=== PATIENT | female | born 1950 | race African-American/Black ===

== ENCOUNTER 2016-11-02 13:07 | Outpatient (CLI) | payer MEDICARE, OTHER ==
[2016-11-02 13:55] LABS: Anion Gap 18 mmol/L (10-20); BUN (Urea Nitrogen) 76 mg/dL (9.8-20.1); Calc. Creatinine Clearance 0 mL/min (70-130); Calcium 9.6 mg/dL (7.8-10.44); Carbon Dioxide 10 mmol/L (23-31); Chloride 118 mmol/L (98-107); Estimated GFR-MDRD 25; Glucose 93 mg/dL (80-115); Potassium 4.9 mmol/L (3.5-5.1); Sodium 141 mmol/L (136-145)
== END 2016-11-02 13:08 | disposition home or self-care (01) ==
LOC: NAV LAB 13:07
PROVIDERS: ATTEND Internal Medicine Nephrology
DX: N18.3 Chronic kidney disease, stage 3 (moderate) (principal)
CPT/HCPCS: 36415; 80048

== ENCOUNTER 2016-11-30 17:56 | Emergency (ER) | payer MEDICARE, OTHER ==
[2016-11-30] MEDS ORDERED: AMOXicillin 250 MG CAP ONE (18:18)
== END 2016-11-30 18:26 | disposition home or self-care (01) ==
LOC: NAV ERS 17:56
DX: H65.92 Unspecified nonsuppurative otitis media, left ear (principal); I25.10 Atherosclerotic heart disease of native coronary artery without angina pectoris; I10 Essential (primary) hypertension; F41.9 Anxiety disorder, unspecified; F32.9 Major depressive disorder, single episode, unspecified; F17.220 Nicotine dependence, chewing tobacco, uncomplicated; Z79.82 Long term (current) use of aspirin; Z79.899 Other long term (current) drug therapy
CPT/HCPCS: 99282

== ENCOUNTER 2016-12-11 15:06 | Emergency (ER) | payer MEDICARE, OTHER ==
[2016-12-11 17:20] LABS: #Eosinphils 0.1 thou/uL (0.0-0.7); #Lymphocytes 1.4 thou/uL (1.20-3.40); #Monocytes 0.5 thou/uL (0.11-0.59); #Neutrophils 5.9 thou/uL (1.40-6.50); %Basophils 0.5 % (0.0-1.0); %Eosinophils 1.2 % (0.0-10.0); %Lymphocytes 17.4 % (21.0-51.0); %Monocytes 6.1 % (0.0-10.0); %Neutrophils 74.8 % (42.0-75.0); Hemoglobin 10.9 g/dL (12.0-16.0); Mean Corpuscular HGB CONC 30.1 g/dL (32.0-36.0); Mean Corpuscular Hemoglobin 26.7 pg (27.0-31.0); Mean Corpuscular Volume 88.7 fl (81.0-99.0); Mean Platelet Volume 6.1 fL (7.4-10.4); Platelet Count 364 thou/uL (130-400); RBC Distribution Width 13.9 % (11.5-14.5); Red Blood Cell (RBC) Count 4.09 mill/uL (4.20-5.40); White Blood Cell (WBC) Count 7.9 thou/uL (4.8-10.8)
[2016-12-11 17:41] LABS: ALT (SGPT) 31 U/L (8-55); AST (SGOT) 21 U/L (5-34); Albumin 4.2 g/dL (3.4-4.8); Alkaline Phosphatase 143 U/L (40-150); Anion Gap 20 mmol/L (10-20); BUN (Urea Nitrogen) 45 mg/dL (9.8-20.1); Bilirubin, Total 0.2 mg/dL (0.2-1.2); Calc. Creatinine Clearance 0 mL/min (70-130); Calcium 10.6 mg/dL (7.8-10.44); Carbon Dioxide 17 mmol/L (23-31); Chloride 108 mmol/L (98-107); Estimated GFR-MDRD 25; Globulin 4.9 g/dL (2.4-3.5); Glucose 92 mg/dL (80-115); Potassium 5.3 mmol/L (3.5-5.1); Protein, Total 9.1 g/dL (6.0-8.3); Sodium 140 mmol/L (136-145); Uric Acid 8.4 mg/dL (2.6-6.0)
[2016-12-11] MEDS ORDERED: methylPREDNISolone Sod Succ/PF 125 MG/2 ML VIAL ONE (18:00)
[2016-12-11] MEDS ORDERED: Dexamethasone 4 mg/ml Vial ONE (18:00)
[2016-12-11] MEDS ORDERED: methylPREDNISolone Acetate 40 mg/ml Vial ONE (18:04)
--- NOTE | 2016-12-11 18:20 | RAD ---
FOUR VIEWS RIGHT ELBOW: History: Elbow pain, gout. FINDINGS: AP, lateral, and oblique views demonstrates no evidence of right elbow fracture, subluxations or bon y lesions. IMPRESSION: Normal four views right elbow. POS: [facility]
--- NOTE | 2016-12-11 18:23 | RAD ---
THREE VIEWS RIGHT WRIST: History: Pain. FINDINGS: AP, lateral, and oblique views obtained. No evidence of fractures, subluxations, or significant bony lesions seen. No significant degenerative changes seen of the right wrist. IMPRESSION: Normal three views right wrist. POS: [facility]
--- NOTE | 2016-12-11 18:37 | RAD ---
FOUR VIEWS LEFT ELBOW: History: Elbow, suspect gout. FINDINGS: No evidence of left elbow fractures, subluxations, or bony lesions seen. No significant lytic or real tructive changes seen. IMPRESSION: Normal four views left elbow. POS: [facility]
--- NOTE | 2016-12-11 18:39 | RAD ---
THREE VIEWS LEFT HAND: History: Swelling. No history of trauma. FINDINGS: AP, lateral and oblique views obtained. There is loss of the normal joint space at the third metacar pal phalangeal joint. There may be some associated subchondral cysts in the distal aspect of the thi rd metacarpal. There is also some degenerative changes seen involving the lunate. 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 IMPRESSION: 1. Joint space narrowing in the third metacarpal phalangeal joint. Considering the patient's history of gout, this cannot be excluded. 2. 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 Dorsal left hand soft tissue swelling also see n. POS: [facility]
--- NOTE | 2016-12-11 18:40 | RAD ---
THREE VIEWS RIGHT HAND: History: Swelling. No history of trauma. FINDINGS: AP, lateral, and oblique views right hand obtained. No evidence of acute right hand fracture, subluxations, or significant bony lesions seen. No signifi cant joint space narrowing or osseous abnormalities seen. There may be some swelling of the PIP join t involving the fourth digit. POS: [facility]
--- NOTE | 2016-12-11 18:41 | RAD ---
THREE VIEWS LEFT WRIST: History: Possible gout. FINDINGS: AP, lateral, and oblique views of the left wrist obtained. 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 No other obvious left wrist abnorm ality seen. IMPRESSION: See above. POS: [facility]
== END 2016-12-11 18:57 | disposition home or self-care (01) ==
LOC: NAV ERS 15:06
DX: M10.9 Gout, unspecified (principal); N28.89 Other specified disorders of kidney and ureter; M89.9 Disorder of bone, unspecified; M06.9 Rheumatoid arthritis, unspecified; I25.10 Atherosclerotic heart disease of native coronary artery without angina pectoris; I10 Essential (primary) hypertension; F41.9 Anxiety disorder, unspecified; F32.9 Major depressive disorder, single episode, unspecified; F17.220 Nicotine dependence, chewing tobacco, uncomplicated; Z79.82 Long term (current) use of aspirin; Z79.899 Other long term (current) drug therapy
CPT/HCPCS: 36415; 80053; 84550; 85025; 96372; J1030; J1100; J2930

== ENCOUNTER 2017-02-22 09:50 | Emergency (ER) | payer MEDICARE, OTHER ==
[2017-02-22 10:08] LABS: Bilirubin Negative (Negative); Blood, Urine Trace (Negative); Clarity Slightly Cloudy (Clear); Glucose, Urine (Dipstick) Negative (Negative); Leukocyte Large (Negative); Nitrite Positive (Negative); Protein, Urine (Dipstick) 100 mg/dL (Neg-Trace); Urobilinogen 0.2 mg/dL (0.2-1.0); pH, Urine 5.5 (5.0-9.0)
[2017-02-22 10:18] LABS: RBC/HPF 0-3 HPF (0-3)
[2017-02-22 10:19] LABS: Bacteria/HPF 2+ HPF (None Seen); Other Microscopic Description NO; Squamous Epithelial 0-3 HPF (0-3)
== END 2017-02-22 10:33 | disposition home or self-care (01) ==
LOC: NAV ERS 09:50
DX: N39.0 Urinary tract infection, site not specified (principal); M06.9 Rheumatoid arthritis, unspecified; I25.10 Atherosclerotic heart disease of native coronary artery without angina pectoris; I10 Essential (primary) hypertension; F32.9 Major depressive disorder, single episode, unspecified; F41.9 Anxiety disorder, unspecified; F17.220 Nicotine dependence, chewing tobacco, uncomplicated; Z79.82 Long term (current) use of aspirin; Z79.899 Other long term (current) drug therapy
CPT/HCPCS: 81003; 81015; 87077; 87086; 87186; 99283

== ENCOUNTER 2017-02-28 15:55 | Outpatient (CLI) | payer MEDICARE, OTHER ==
[2017-02-28 19:00] LABS: Anion Gap 19 mmol/L (10-20); BUN (Urea Nitrogen) 56 mg/dL (9.8-20.1); Calc. Creatinine Clearance 0 mL/min (70-130); Calcium 9.3 mg/dL (7.8-10.44); Carbon Dioxide 16 mmol/L (23-31); Chloride 113 mmol/L (98-107); Estimated GFR-MDRD 25; Glucose 100 mg/dL (80-115); Potassium 5.8 mmol/L (3.5-5.1); Sodium 142 mmol/L (136-145)
[2017-03-01 18:30] LABS: Creatinine, Urine 77.81 mg/dL (47-110)
== END 2017-02-28 15:56 | disposition home or self-care (01) ==
LOC: NAV LAB 15:55
PROVIDERS: ATTEND Internal Medicine Nephrology
DX: N18.1 Chronic kidney disease, stage 1 (principal); D63.1 Anemia in chronic kidney disease; I15.0 Renovascular hypertension
CPT/HCPCS: 80048; 82570; 84156; 85014; 85018

== ENCOUNTER 2017-03-08 13:33 | Outpatient (CLI) | payer MEDICARE, OTHER ==
[2017-03-08 19:05] LABS: BUN (Urea Nitrogen) 58 mg/dL (9.8-20.1); Calc. Creatinine Clearance 0 mL/min (70-130); Estimated GFR-MDRD 27; Potassium 5.8 mmol/L (3.5-5.1)
== END 2017-03-08 13:34 | disposition home or self-care (01) ==
LOC: NAVSJIPCSP 13:33
PROVIDERS: ATTEND Internal Medicine Nephrology
DX: N18.3 Chronic kidney disease, stage 3 (moderate) (principal); R53.82 Chronic fatigue, unspecified
CPT/HCPCS: 82565; 84132; 84520

== ENCOUNTER 2017-03-27 12:02 | Emergency (ER) | payer MEDICARE, OTHER ==
[2017-03-27 12:27] LABS: Bilirubin Negative (Negative); Blood, Urine Moderate (Negative); Clarity Cloudy (Clear); Glucose, Urine (Dipstick) Negative (Negative); Leukocyte Large (Negative); Nitrite Negative (Negative); Protein, Urine (Dipstick) 100 mg/dL (Neg-Trace); Urobilinogen 0.2 mg/dL (0.2-1.0); pH, Urine 5.5 (5.0-9.0)
[2017-03-27 12:31] LABS: Squamous Epithelial 0-3 HPF (0-3)
[2017-03-27 12:32] LABS: Bacteria/HPF 2+ HPF (None Seen); Other Microscopic Description NO
== END 2017-03-27 12:45 | disposition home or self-care (01) ==
LOC: NAV ERS 12:02
DX: N39.0 Urinary tract infection, site not specified (principal); M06.9 Rheumatoid arthritis, unspecified; I25.10 Atherosclerotic heart disease of native coronary artery without angina pectoris; M10.9 Gout, unspecified; I12.9 Hypertensive chronic kidney disease with stage 1 through stage 4 chronic kidney disease, or unspecified chronic kidney disease; N18.3 Chronic kidney disease, stage 3 (moderate); F41.9 Anxiety disorder, unspecified; F32.9 Major depressive disorder, single episode, unspecified; F17.220 Nicotine dependence, chewing tobacco, uncomplicated; Z79.82 Long term (current) use of aspirin; Z79.899 Other long term (current) drug therapy
CPT/HCPCS: 81003; 81015; 87077; 87086; 87186; 99283

== ENCOUNTER 2017-03-31 16:06 | Emergency (ER) | payer MEDICARE, MEDICAID ==
[2017-03-31] MEDS ORDERED: methylPREDNISolone Sod Succ/PF 125 MG/2 ML VIAL ONE (16:50)
[2017-03-31 17:46] LABS: Anion Gap 16 mmol/L (10-20); BUN (Urea Nitrogen) 69 mg/dL (9.8-20.1); Calc. Creatinine Clearance 0 mL/min (70-130); Calcium 9.6 mg/dL (7.8-10.44); Carbon Dioxide 17 mmol/L (23-31); Chloride 110 mmol/L (98-107); Estimated GFR-MDRD 21; Glucose 102 mg/dL (80-115); Potassium 5.5 mmol/L (3.5-5.1); Sodium 137 mmol/L (136-145)
[2017-03-31] MEDS ORDERED: Furosemide 40 MG/4 ML VIAL ONE (18:23)
== END 2017-03-31 18:36 | disposition home or self-care (01) ==
LOC: NAV ERS 16:06
DX: M10.9 Gout, unspecified (principal); E87.5 Hyperkalemia; I12.9 Hypertensive chronic kidney disease with stage 1 through stage 4 chronic kidney disease, or unspecified chronic kidney disease; N18.3 Chronic kidney disease, stage 3 (moderate); I25.10 Atherosclerotic heart disease of native coronary artery without angina pectoris; M06.9 Rheumatoid arthritis, unspecified; F17.220 Nicotine dependence, chewing tobacco, uncomplicated; Z79.82 Long term (current) use of aspirin; Z79.899 Other long term (current) drug therapy
CPT/HCPCS: 36415; 80048; 93005; 96372; J1940; J2930

== ENCOUNTER 2017-04-10 13:06 | Emergency (ER) | payer MEDICARE, MEDICAID ==
[2017-04-10 13:27] LABS: Bilirubin Negative (Negative); Blood, Urine Negative (Negative); Clarity Clear (Clear); Glucose, Urine (Dipstick) Negative (Negative); Leukocyte Trace (Negative); Nitrite Negative (Negative); Protein, Urine (Dipstick) 100 mg/dL (Neg-Trace); Urobilinogen 0.2 mg/dL (0.2-1.0); pH, Urine 5.5 (5.0-9.0)
[2017-04-10 13:36] LABS: Bacteria/HPF Rare-Few HPF (None Seen); Other Microscopic Description NO; RBC/HPF None Seen HPF (0-3); Squamous Epithelial 0-3 HPF (0-3)
== END 2017-04-10 13:50 | disposition home or self-care (01) ==
LOC: NAV ERS 13:06
DX: N39.0 Urinary tract infection, site not specified (principal); I12.9 Hypertensive chronic kidney disease with stage 1 through stage 4 chronic kidney disease, or unspecified chronic kidney disease; N18.3 Chronic kidney disease, stage 3 (moderate); M06.9 Rheumatoid arthritis, unspecified; I25.10 Atherosclerotic heart disease of native coronary artery without angina pectoris; M10.9 Gout, unspecified; F41.9 Anxiety disorder, unspecified; F32.9 Major depressive disorder, single episode, unspecified; F17.220 Nicotine dependence, chewing tobacco, uncomplicated; Z79.82 Long term (current) use of aspirin; Z79.899 Other long term (current) drug therapy
CPT/HCPCS: 81003; 81015; 87086; 99283

== ENCOUNTER 2017-05-18 13:59 | Emergency (ER) | payer MEDICARE, OTHER ==
[2017-05-18] MEDS ORDERED: methylPREDNISolone Sod Succ/PF 125 MG/2 ML VIAL ONE (14:28)
== END 2017-05-18 14:58 | disposition home or self-care (01) ==
LOC: NAV ERS 13:59
DX: M10.9 Gout, unspecified (principal); I25.10 Atherosclerotic heart disease of native coronary artery without angina pectoris; I12.9 Hypertensive chronic kidney disease with stage 1 through stage 4 chronic kidney disease, or unspecified chronic kidney disease; N18.3 Chronic kidney disease, stage 3 (moderate); F41.9 Anxiety disorder, unspecified; F32.9 Major depressive disorder, single episode, unspecified; F17.220 Nicotine dependence, chewing tobacco, uncomplicated; Z79.82 Long term (current) use of aspirin; Z79.899 Other long term (current) drug therapy
CPT/HCPCS: 96372; J2930

== ENCOUNTER 2017-07-07 13:34 | Outpatient (CLI) | payer MEDICARE, OTHER ==
[2017-07-07 14:06] LABS: BUN (Urea Nitrogen) 81 mg/dL (9.8-20.1); Potassium 5.6 mmol/L (3.5-5.1)
== END 2017-07-07 13:35 | disposition home or self-care (01) ==
LOC: NAV LAB 13:34
PROVIDERS: ATTEND Internal Medicine Nephrology
DX: N18.3 Chronic kidney disease, stage 3 (moderate) (principal)
CPT/HCPCS: 36415; 84132; 84520

== ENCOUNTER 2017-10-16 11:09 | Emergency (ER) | payer MEDICARE, MEDICAID ==
[2017-10-16] MEDS ORDERED: predniSONE 20 MG TAB ONE (11:27)
== END 2017-10-16 11:43 | disposition home or self-care (01) ==
LOC: NAV ERS 11:09
DX: M10.9 Gout, unspecified (principal); I25.10 Atherosclerotic heart disease of native coronary artery without angina pectoris; I12.9 Hypertensive chronic kidney disease with stage 1 through stage 4 chronic kidney disease, or unspecified chronic kidney disease; N18.3 Chronic kidney disease, stage 3 (moderate); F41.9 Anxiety disorder, unspecified; F32.9 Major depressive disorder, single episode, unspecified; F17.220 Nicotine dependence, chewing tobacco, uncomplicated; Z79.82 Long term (current) use of aspirin; Z79.899 Other long term (current) drug therapy
CPT/HCPCS: 99283; J7506

== ENCOUNTER 2017-11-04 21:59 | Emergency (ER) | payer MEDICARE, MEDICAID ==
[2017-11-04] MEDS ORDERED: Acetaminophen 500 MG TAB ONE (22:15)
--- NOTE | 2017-11-04 22:38 | RAD ---
SINGLE VIEW CHEST: 11/04/17 COMPARISON: 05/06/16 HISTORY: Flu-like symptoms and cough. FINDINGS: Single view of the chest shows a normal sized cardiomediastinal silhouette. There is no evidence of c onsolidation, mass, or pleural effusion. The bones are unremarkable. IMPRESSION: No evidence of acute cardiopulmonary disease. POS: [facility]
[2017-11-04] MEDS ORDERED: guaiFENesin 100 MG/5 ML UDCUP ONE (23:00)
[2017-11-04] MEDS ORDERED: Benzonatate 100 MG CAP ONE (23:00)
[2017-11-04] MEDS ORDERED: Azithromycin 250 MG TAB ONE (23:00)
== END 2017-11-04 23:08 | disposition home or self-care (01) ==
LOC: NAV ERS 21:59
DX: J06.9 Acute upper respiratory infection, unspecified (principal); I25.10 Atherosclerotic heart disease of native coronary artery without angina pectoris; M10.9 Gout, unspecified; I12.9 Hypertensive chronic kidney disease with stage 1 through stage 4 chronic kidney disease, or unspecified chronic kidney disease; N18.3 Chronic kidney disease, stage 3 (moderate); F41.9 Anxiety disorder, unspecified; F32.9 Major depressive disorder, single episode, unspecified; F17.220 Nicotine dependence, chewing tobacco, uncomplicated; Z79.82 Long term (current) use of aspirin; Z79.52 Long term (current) use of systemic steroids; Z79.899 Other long term (current) drug therapy
CPT/HCPCS: 71045; 87081; 87430; 87804

== ENCOUNTER 2018-01-03 14:13 | Emergency (ER) | payer MEDICARE, OTHER | END 2018-01-03 15:05 | disposition home or self-care (01) | LOC: NAV ERS 14:13 | DX: S90.02XA Contusion of left ankle, initial encounter (principal); M10.072 Idiopathic gout, left ankle and foot; I10 Essential (primary) hypertension; G89.4 Chronic pain syndrome; I25.10 Atherosclerotic heart disease of native coronary artery without angina pectoris; F41.9 Anxiety disorder, unspecified; F32.9 Major depressive disorder, single episode, unspecified; F17.220 Nicotine dependence, chewing tobacco, uncomplicated; Z79.82 Long term (current) use of aspirin; Z79.899 Other long term (current) drug therapy; W01.0XXA Fall on same level from slipping, tripping and stumbling without subsequent striking against object, initial encounter | CPT/HCPCS: 99283 ==

== ENCOUNTER 2018-01-07 16:13 | Emergency (ER) | payer MEDICARE, OTHER ==
[2018-01-07] MEDS ORDERED: Ketorolac Tromethamine 30 MG/ML VIAL ONE (16:35)
[2018-01-07] MEDS ORDERED: methylPREDNISolone Sod Succ/PF 125 MG/2 ML VIAL ONE (16:35)
== END 2018-01-07 16:56 | disposition home or self-care (01) ==
LOC: NAV ERS 16:13
DX: M10.9 Gout, unspecified (principal); I25.10 Atherosclerotic heart disease of native coronary artery without angina pectoris; I12.9 Hypertensive chronic kidney disease with stage 1 through stage 4 chronic kidney disease, or unspecified chronic kidney disease; N18.3 Chronic kidney disease, stage 3 (moderate); F41.9 Anxiety disorder, unspecified; F32.9 Major depressive disorder, single episode, unspecified; F17.220 Nicotine dependence, chewing tobacco, uncomplicated; Z79.899 Other long term (current) drug therapy; Z79.82 Long term (current) use of aspirin
CPT/HCPCS: 96372; J1885; J2930

== ENCOUNTER 2018-05-23 10:09 | Emergency (ER) | payer MEDICARE, MEDICAID ==
[2018-05-23] MEDS ORDERED: Ketorolac Tromethamine 60 MG/2 ML VIAL ONE (10:34)
[2018-05-23] MEDS ORDERED: methylPREDNISolone Acetate 40 mg/ml Vial ONE (10:34)
== END 2018-05-23 10:44 | disposition home or self-care (01) ==
LOC: NAV ERS 10:09
DX: M10.9 Gout, unspecified (principal); I25.10 Atherosclerotic heart disease of native coronary artery without angina pectoris; I12.9 Hypertensive chronic kidney disease with stage 1 through stage 4 chronic kidney disease, or unspecified chronic kidney disease; N18.3 Chronic kidney disease, stage 3 (moderate); F41.9 Anxiety disorder, unspecified; F32.9 Major depressive disorder, single episode, unspecified; F17.220 Nicotine dependence, chewing tobacco, uncomplicated; Z79.899 Other long term (current) drug therapy; Z79.82 Long term (current) use of aspirin
CPT/HCPCS: 96372; J1030; J1885

== ENCOUNTER 2018-07-30 15:46 | Emergency (ER) | payer MEDICARE, MEDICAID ==
[2018-07-30] MEDS ORDERED: Proparacaine 0.5% Opth 15 ML BOT ONE (17:09)
== END 2018-07-30 17:35 | disposition home or self-care (01) ==
LOC: NAV ERS 15:46
DX: H26.9 Unspecified cataract (principal); I25.10 Atherosclerotic heart disease of native coronary artery without angina pectoris; M10.9 Gout, unspecified; I12.9 Hypertensive chronic kidney disease with stage 1 through stage 4 chronic kidney disease, or unspecified chronic kidney disease; N18.3 Chronic kidney disease, stage 3 (moderate); F17.220 Nicotine dependence, chewing tobacco, uncomplicated; Z79.82 Long term (current) use of aspirin; Z79.899 Other long term (current) drug therapy
CPT/HCPCS: 99283

== ENCOUNTER 2018-08-06 08:25 | Emergency (ER) | payer MEDICARE, MEDICAID ==
[2018-08-06] MEDS ORDERED: HYDROcodone/Acetaminophen 5/325 mg Tablet ONE (08:42)
== END 2018-08-06 17:10 | disposition home or self-care (01) ==
LOC: NAV ERS 08:25
DX: M10.9 Gout, unspecified (principal); I10 Essential (primary) hypertension; I25.10 Atherosclerotic heart disease of native coronary artery without angina pectoris; I12.9 Hypertensive chronic kidney disease with stage 1 through stage 4 chronic kidney disease, or unspecified chronic kidney disease; N18.3 Chronic kidney disease, stage 3 (moderate); F41.9 Anxiety disorder, unspecified; F32.9 Major depressive disorder, single episode, unspecified; F17.220 Nicotine dependence, chewing tobacco, uncomplicated; Z79.82 Long term (current) use of aspirin; Z79.899 Other long term (current) drug therapy
CPT/HCPCS: 99283

== ENCOUNTER 2018-10-31 14:42 | Emergency (ER) | payer MEDICARE, OTHER ==
[2018-10-31] MEDS ORDERED: Sodium Chloride 0.9% 500 ML ONE (15:28)
[2018-10-31 15:44] LABS: #Eosinphils 0.3 thou/uL (0.0-0.7); #Lymphocytes 1.6 thou/uL (1.20-3.40); #Monocytes 0.4 thou/uL (0.11-0.59); #Neutrophils 2.3 thou/uL (1.40-6.50); %Basophils 0.7 % (0.0-1.0); %Lymphocytes 33.9 % (21.0-51.0); %Monocytes 9.1 % (0.0-10.0); %Neutrophils 49.3 % (42.0-75.0); Hemoglobin 9.9 g/dL (12.0-16.0); Mean Corpuscular HGB CONC 30.2 g/dL (32.0-36.0); Mean Corpuscular Hemoglobin 26.4 pg (27.0-31.0); Mean Corpuscular Volume 87.4 fL (78.0-98.0); Platelet Count 243 thou/uL (130-400); RBC Distribution Width 16.5 % (11.5-14.5); Red Blood Cell (RBC) Count 3.76 mill/uL (4.20-5.40); White Blood Cell (WBC) Count 4.7 thou/uL (4.8-10.8)
[2018-10-31 16:03] LABS: ALT (SGPT) 8 U/L (8-55); AST (SGOT) 14 U/L (5-34); Albumin 4.1 g/dL (3.4-4.8); Alkaline Phosphatase 85 U/L (40-150); Anion Gap 18 mmol/L (10-20); BUN (Urea Nitrogen) 114 mg/dL (9.8-20.1); Bilirubin, Total 0.3 mg/dL (0.2-1.2); Calc. Creatinine Clearance 0 mL/min (70-130); Calcium 9.5 mg/dL (7.8-10.44); Carbon Dioxide 12 mmol/L (23-31); Chloride 111 mmol/L (98-107); Estimated GFR-MDRD 11; Globulin 2.9 g/dL (2.4-3.5); Glucose 84 mg/dL (80-115); Sodium 134 mmol/L (136-145)
[2018-10-31 16:12] LABS: Potassium 6.7 mmol/L (3.5-5.1)
[2018-10-31] MEDS ORDERED: Insulin Regular 300 UNITS/3 ML VIAL ONE (16:27)
[2018-10-31] MEDS ORDERED: Albuterol Sulfate 2.5 mg/0.5 ml Neb ONE (16:27)
[2018-10-31] MEDS ORDERED: Calcium Chloride 1 GM/10 ML Abboject SYRINGE ONE (16:27)
[2018-10-31] MEDS ORDERED: Dextrose 50% Abboject 50 ML SYRINGE ONE (16:28)
== END 2018-10-31 17:55 | disposition short-term general hospital (02) ==
LOC: NAV ERS 14:42
DX: E87.5 Hyperkalemia (principal); I12.9 Hypertensive chronic kidney disease with stage 1 through stage 4 chronic kidney disease, or unspecified chronic kidney disease; N18.3 Chronic kidney disease, stage 3 (moderate); I25.10 Atherosclerotic heart disease of native coronary artery without angina pectoris; M10.9 Gout, unspecified; F17.220 Nicotine dependence, chewing tobacco, uncomplicated; Z79.899 Other long term (current) drug therapy; Z79.82 Long term (current) use of aspirin
CPT/HCPCS: 36415; 80053; 83735; 85025; 93005; 94644; 96361; 96374; 96375; J1815; J7050; J7611

== ENCOUNTER 2018-11-28 12:35 | Emergency (ER) | payer MEDICARE, MEDICAID ==
[2018-11-28 13:10] LABS: #Eosinphils 0.1 thou/uL (0.0-0.7); #Lymphocytes 1.1 thou/uL (1.20-3.40); #Monocytes 0.6 thou/uL (0.11-0.59); #Neutrophils 7.2 thou/uL (1.40-6.50); %Basophils 0.5 % (0.0-1.0); %Lymphocytes 12.1 % (21.0-51.0); %Monocytes 6.8 % (0.0-10.0); %Neutrophils 79.7 % (42.0-75.0); Hemoglobin 9.6 g/dL (12.0-16.0); Mean Corpuscular HGB CONC 30.5 g/dL (32.0-36.0); Mean Corpuscular Volume 88.5 fL (78.0-98.0); Mean Platelet Volume 7.3 fL (7.4-10.4); Platelet Count 297 thou/uL (130-400); RBC Distribution Width 16.7 % (11.5-14.5); Red Blood Cell (RBC) Count 3.55 mill/uL (4.20-5.40)
[2018-11-28 13:34] LABS: Anion Gap 20 mmol/L (10-20); BUN (Urea Nitrogen) 70 mg/dL (9.8-20.1); Calc. Creatinine Clearance 0 mL/min (70-130); Calcium 10.1 mg/dL (7.8-10.44); Carbon Dioxide 12 mmol/L (23-31); Chloride 107 mmol/L (98-107); Estimated GFR-MDRD 12; Glucose 99 mg/dL (80-115); Sodium 134 mmol/L (136-145)
[2018-11-28] MEDS ORDERED: Morphine 4 MG/ML VIAL ONE (14:00)
[2018-11-28] MEDS ORDERED: Ondansetron PF 4 MG/2 ML Vial ONE (14:00)
[2018-11-28] MEDS ORDERED: Sodium Chloride 0.9% 1,000 ML ONE (14:00)
[2018-11-28] MEDS ORDERED: Acetaminophen 500 MG TAB ONE (16:07)
[2018-11-28 16:37] LABS: Bilirubin Negative (Negative); Blood, Urine Trace (Negative); Clarity Clear (Clear); Glucose, Urine (Dipstick) Negative (Negative); Leukocyte Trace (Negative); Nitrite Negative (Negative); Protein, Urine (Dipstick) 100 mg/dL (Neg-Trace); Urobilinogen 0.2 mg/dL (0.2-1.0); pH, Urine 5.5 (5.0-9.0)
[2018-11-28 16:48] LABS: Specific Gravity, Urine Less/Equal 1.005 (1.005-1.030)
[2018-11-28 16:53] LABS: Bacteria/HPF None Seen HPF (None Seen); RBC/HPF 0-3 HPF (0-3); Squamous Epithelial 0-3 HPF (0-3); WBC/HPF None Seen HPF (0-3)
== END 2018-11-28 16:34 | disposition short-term general hospital (02) ==
LOC: NAV ERS 12:35
DX: E86.0 Dehydration (principal); I12.9 Hypertensive chronic kidney disease with stage 1 through stage 4 chronic kidney disease, or unspecified chronic kidney disease; N18.4 Chronic kidney disease, stage 4 (severe); E87.2 Acidosis; I25.10 Atherosclerotic heart disease of native coronary artery without angina pectoris; M10.9 Gout, unspecified; F41.9 Anxiety disorder, unspecified; F32.9 Major depressive disorder, single episode, unspecified; F17.220 Nicotine dependence, chewing tobacco, uncomplicated; Z79.899 Other long term (current) drug therapy; Z79.82 Long term (current) use of aspirin
CPT/HCPCS: 36415; 80048; 81003; 81015; 83605; 83735; 84484; 85025; 93005; 96361; 96374; 96375; J2270; J2405; J7050

== ENCOUNTER 2018-12-05 15:58 | Inpatient (IN) | payer MEDICARE, OTHER ==
[2018-12-05 16:25] VITALS: BMI 29.9
[2018-12-05] MEDS: hydrALAZINE 25 MG TAB PO SCH (20:30)
[2018-12-05] MEDS: cloNIDine 0.1 MG TAB PO SCH (20:30)
[2018-12-05] MEDS: Lidocaine Patch Removal 1 EACH TOP SCH (20:30)
[2018-12-05] MEDS: Acetaminophen 500 MG TAB PO PRN (20:31)
[2018-12-06 05:25] LABS: #Lymphocytes 1.5 thou/uL (1.20-3.40); #Monocytes 0.8 thou/uL (0.11-0.59); #Neutrophils 9.3 thou/uL (1.40-6.50); %Basophils 0.3 % (0.0-1.0); %Eosinophils 0.1 % (0.0-10.0); %Lymphocytes 12.6 % (21.0-51.0); %Monocytes 6.8 % (0.0-10.0); %Neutrophils 80.2 % (42.0-75.0); Hemoglobin 7.4 g/dL (12.0-16.0); Mean Corpuscular HGB CONC 31.6 g/dL (32.0-36.0); Mean Corpuscular Hemoglobin 26.9 pg (27.0-31.0); Mean Corpuscular Volume 85.1 fL (78.0-98.0); Mean Platelet Volume 6.6 fL (7.4-10.4); Platelet Count 411 thou/uL (130-400); RBC Distribution Width 14.8 % (11.5-14.5); Red Blood Cell (RBC) Count 2.77 mill/uL (4.20-5.40); White Blood Cell (WBC) Count 11.5 thou/uL (4.8-10.8)
[2018-12-06 05:41] LABS: Anion Gap 22 mmol/L (10-20); Calc. Creatinine Clearance 14 mL/min (70-130); Calcium 7.5 mg/dL (7.8-10.44); Carbon Dioxide 18 mmol/L (23-31); Chloride 93 mmol/L (98-107); Estimated GFR-MDRD 10; Glucose 89 mg/dL (80-115); Potassium 4.9 mmol/L (3.5-5.1); Sodium 128 mmol/L (136-145)
[2018-12-06 06:11] LABS: BUN (Urea Nitrogen) 137 mg/dL (9.8-20.1)
[2018-12-06] MEDS: predniSONE 5 MG TAB PO SCH ×2 (08:18→16:50)
[2018-12-06] MEDS: Lidocaine 5% Patch TD SCH (08:21)
[2018-12-06] MEDS: Aspirin 81 mg Enteric Coated Tablet PO SCH (08:21)
[2018-12-06] MEDS: hydrALAZINE 25 MG TAB PO SCH ×3 (08:22→21:22)
[2018-12-06] MEDS: Amlodipine 10 MG TAB PO SCH (08:22)
[2018-12-06] MEDS: cloNIDine 0.1 MG TAB PO SCH ×2 (08:22→21:21)
[2018-12-06] MEDS: Acetaminophen 500 MG TAB PO PRN (08:56)
--- NOTE | 2018-12-06 20:00 | HP ---
CHIEF COMPLAINT: [id number] kidney disease and deconditioning, currently refusing hemodialysis and here for therapy. BRIEF HISTORY: This is a pleasant 68-year-old female, whom I have seen on and off in the past and has history of renal insufficiency since 2012, with history of noncompliance, presented to the hospital with body aches. She was noted to have [id number] kidney disease as well as hyperkalemia. She was evaluated by Orthopedics for right elbow effusion and was felt to have gout. She was also advised hemodialysis, and she was scheduled for vascular access, but then the patient decided that she did not want it. She is here for therapy, and she states that she wants to get up and get walking before she gets dialysis, and I advised her that her renal functions are continuing to worsen, and she is not really going to improve with therapy unless we take care of her primary problem, which is renal failure. I also discussed with her about code status, and she states she does not want any aggressive resuscitation done including chest compressions, shock, medications, or intubation. Nursing is confirming it, and if confirmed, then we will change her code status to DNR. She denies any chest pain or shortness of breath. She is up in her chair. Denies any fever or chills. PAST MEDICAL HISTORY: 1. Coronary artery disease. 2. Hypertension. 3. Gout. 4. History of noncompliance. 5. Chronic kidney disease, stage 3 to 4 in the past, now which has progressed to pretty much end-stage renal disease. PAST SURGICAL HISTORY: 1. Bilateral cataract extraction. 2. Hysterectomy. 3. Tubal ligation. FAMILY HISTORY: Noncontributory to current admission. PSYCHOSOCIAL HISTORY: Denies any tobacco, alcohol, or recreational drug use. ALLERGIES: 1. CODEINE. 2. LISINOPRIL. 3. TRAMADOL. CURRENT MEDICATIONS: She has been transferred here on: 1. Tylenol 500 mg p.o. q.6 p.r.n. 2. Amlodipine 10 mg daily. 3. Ecotrin 81 mg daily. 4. Clonidine 0.1 mg p.o. b.i.d. 5. Hydralazine 50 mg p.o. t.i.d. 6. Lidoderm patch 1 daily. 7. Metoprolol 25 mg daily. 8. Prednisone 10 mg b.i.d. REVIEW OF SYSTEMS: CARDIOVASCULAR SYSTEM: Denies any chest pain, shortness of breath, palpitations, PND, orthopnea, or pedal edema. RESPIRATORY SYSTEM: Denies any chronic cough, expectoration, or pleuritic-type chest pain. GASTROINTESTINAL SYSTEM: Denies any nausea, vomiting, diarrhea, constipation, hematemesis, melena, or hematochezia. GENITOURINARY SYSTEM: Denies any frequency, urgency, dysuria, or hematuria. CENTRAL NERVOUS SYSTEM: Shows no focal numbness, weakness, or fainting spells. PHYSICAL EXAMINATION: GENERAL: Pleasant 68-year-old female, who is resting comfortably in her chair and denies any complaints. She responds appropriately to questions. No family at bedside. VITAL SIGNS: She is afebrile, heart rate 62, respirations 20, oxygen saturation 99% on room air, blood pressure 118/59. HEENT: Normocephalic and atraumatic. Pupils are equally reactive to light and accommodation. NECK: No JVD, thyromegaly, cervical lymphadenopathy, throat exudates, or carotid bruits. CARDIOVASCULAR SYSTEM: S1 and S2 plus. Rate and rhythm regular. RESPIRATORY SYSTEM: Normal vesicular breath sounds heard in all lung castañeda. ABDOMEN: Soft and nontender. Bowel sounds heard in all quadrants. EXTREMITIES: Without cyanosis or clubbing. 1+ edema. CENTRAL NERVOUS SYSTEM: Awake and responsive. Cranial nerves 2 through 12 intact. Generalized weakness. LABORATORY VALUES: From this morning show a white count of 11.5, H and H are 7.4 and 23.5. Sodium 128, potassium 4.9, BUN and creatinine are 137 and 5.23. IMPRESSION: 1. Renal failure, likely end-stage. Recommended hemodialysis by Nephrology. 2. Hypertension. 3. Gout. 4. Hyponatremia. 5. Mild leukocytosis, likely secondary to steroids. 6. Generalized arthralgia. 7. Deconditioning. PLAN: 1. Continue discharge medications. 2. Heart-healthy renal diet. 3. Monitor blood pressure and adjust medications as needed. 4. Consult PT/OT evaluation and treat. 5. Discussed with the patient about the importance of getting hemodialysis promptly if she wants it done. Otherwise, really think about comfort care. 6. Change her to DNR as that is her wish to me, but I have asked nursing to confirm. 7. No family at bedside. 8. The patient is up and moving around enough that DVT is less of a concern at this point. 9. Decubitus precautions. 10. Routine laboratory values. 11. Poor long-term prognosis if she does not get hemodialysis. Job ID: [id number]
[2018-12-06] MEDS: Lidocaine Patch Removal 1 EACH TOP SCH (21:25)
[2018-12-07] MEDS: predniSONE 5 MG TAB PO SCH ×2 (08:38→17:32)
[2018-12-07] MEDS: hydrALAZINE 25 MG TAB PO SCH ×3 (08:39→20:54)
[2018-12-07] MEDS: Aspirin 81 mg Enteric Coated Tablet PO SCH (08:39)
[2018-12-07] MEDS: cloNIDine 0.1 MG TAB PO SCH ×2 (08:41→20:54)
[2018-12-07] MEDS: Amlodipine 10 MG TAB PO SCH (08:41)
[2018-12-07] MEDS: Lidocaine 5% Patch TD SCH (08:44)
[2018-12-07] MEDS: Lidocaine Patch Removal 1 EACH TOP SCH (20:55)
[2018-12-08] MEDS: predniSONE 5 MG TAB PO SCH ×2 (08:47→17:32)
[2018-12-08] MEDS: Aspirin 81 mg Enteric Coated Tablet PO SCH (08:47)
[2018-12-08] MEDS: cloNIDine 0.1 MG TAB PO SCH ×2 (08:47→21:17)
[2018-12-08] MEDS: Amlodipine 10 MG TAB PO SCH (08:47)
[2018-12-08] MEDS: Lidocaine 5% Patch TD SCH (08:47)
[2018-12-08] MEDS: hydrALAZINE 25 MG TAB PO SCH ×3 (08:47→21:16)
[2018-12-08] MEDS: Acetaminophen 500 MG TAB PO PRN (14:53)
--- NOTE | 2018-12-08 14:57 | PRG ---
DATE OF SERVICE: 12/08/2018 SUBJECTIVE: Ms. Skaggs is doing well. She has agreed to hemodialysis access placement. Dr. Jalloh has been contacted, and she is seeing him on the . She has been placed on fluid restriction. She states that she feels better. She denies any questions or concerns. I see no family at bedside. OBJECTIVE: VITAL SIGNS: She is afebrile. Heart rate 63, respirations 16, oxygen saturation 99% on room air, and blood pressure is 131/62. CARDIOVASCULAR: S1 and S2 plus. RESPIRATORY: Normal vesicular breath sounds. ABDOMEN: Soft, nontender. Bowel sounds in all quadrants. EXTREMITIES: Without cyanosis or clubbing. Peripheral pulses are palpable. Trace edema. CENTRAL NERVOUS SYSTEM: Awake and responsive. Cranial nerves 2 through 12 intact. Generalized weakness. IMPRESSION: 1. Coronary artery disease without angina. 2. Hypertension, well controlled. 3. Gout, stable. 4. Chronic kidney disease, now has progressed to end-stage. 5. Deconditioning. PLAN: 1. Continue current medications. 2. Heart healthy renal diet. 3. DVT and stress ulcer prophylaxis with PlexiPulses. 4. Decubitus precautions. 5. Recheck BMP and CBC in the morning. 6. Outpatient followup with Dr. Jalloh on the and hopefully get dialysis access placed. Continue therapy. Dictated with the patient in detail. All questions answered. Job ID: [id number]
[2018-12-08] MEDS: Lidocaine Patch Removal 1 EACH TOP SCH (21:18)
[2018-12-09 05:46] LABS: #Lymphocytes 0.9 thou/uL (1.20-3.40); #Monocytes 0.7 thou/uL (0.11-0.59); %Basophils 0.2 % (0.0-1.0); %Lymphocytes 7.4 % (21.0-51.0); %Monocytes 5.9 % (0.0-10.0); %Neutrophils 86.4 % (42.0-75.0); Hemoglobin 6.7 g/dL (12.0-16.0); Mean Corpuscular HGB CONC 30.2 g/dL (32.0-36.0); Mean Corpuscular Hemoglobin 26.8 pg (27.0-31.0); Mean Corpuscular Volume 88.4 fL (78.0-98.0); Mean Platelet Volume 6.2 fL (7.4-10.4); Platelet Count 386 thou/uL (130-400); RBC Distribution Width 15.9 % (11.5-14.5); Red Blood Cell (RBC) Count 2.51 mill/uL (4.20-5.40); White Blood Cell (WBC) Count 11.5 thou/uL (4.8-10.8)
[2018-12-09 05:59] LABS: Anion Gap 22 mmol/L (10-20); Calc. Creatinine Clearance 15 mL/min (70-130); Calcium 8.2 mg/dL (7.8-10.44); Carbon Dioxide 17 mmol/L (23-31); Chloride 103 mmol/L (98-107); Estimated GFR-MDRD 11; Glucose 117 mg/dL (80-115); Potassium 5.9 mmol/L (3.5-5.1); Sodium 136 mmol/L (136-145)
[2018-12-09 06:28] LABS: BUN (Urea Nitrogen) 165 mg/dL (9.8-20.1)
[2018-12-09] MEDS: hydrALAZINE 25 MG TAB PO SCH ×3 (08:21→21:02)
[2018-12-09] MEDS: Lidocaine 5% Patch TD SCH (08:21)
[2018-12-09] MEDS: cloNIDine 0.1 MG TAB PO SCH ×2 (08:21→21:02)
[2018-12-09] MEDS: predniSONE 5 MG TAB PO SCH (08:21)
[2018-12-09] MEDS: Amlodipine 10 MG TAB PO SCH (08:22)
[2018-12-09] MEDS: Aspirin 81 mg Enteric Coated Tablet PO SCH (08:22)
[2018-12-09] MEDS: Lidocaine Patch Removal 1 EACH TOP SCH (21:04)
[2018-12-10] MEDS: predniSONE 5 MG TAB PO SCH (08:05)
[2018-12-10] MEDS: Amlodipine 10 MG TAB PO SCH ×2 (08:06→18:00)
[2018-12-10] MEDS: Lidocaine 5% Patch TD SCH ×2 (08:06→08:52)
[2018-12-10] MEDS: Aspirin 81 mg Enteric Coated Tablet PO SCH (08:07)
[2018-12-10] MEDS: cloNIDine 0.1 MG TAB PO SCH ×3 (08:07→19:48)
[2018-12-10] MEDS: hydrALAZINE 25 MG TAB PO SCH ×3 (08:08→20:17)
[2018-12-10] MEDS: Acetaminophen 500 MG TAB PO PRN ×2 (08:11→17:48)
[2018-12-10] MEDS ORDERED: Sodium Chloride 0.9% 10 ML ONE ×3 (13:31→18:16)
--- NOTE | 2018-12-10 13:35 | PRG ---
DATE OF SERVICE: 12/10/2018 SUBJECTIVE: Ms. Skaggs is doing well. Denies any complaints. Up in her chair. She states she feels cold, otherwise, no concerns. She is scheduled to see General Surgery tomorrow for possible dialysis access placement. OBJECTIVE: VITAL SIGNS: She is afebrile. Heart rate 64, respirations 20, oxygen saturation 98% on room air, blood pressure 106/54. CARDIOVASCULAR SYSTEM: S1-S2 plus. RESPIRATORY: Normal vesicular breath sounds. ABDOMEN: Soft, nontender. Bowel sounds heard in all quadrants. EXTREMITIES: Without cyanosis, clubbing. 1+ edema. CENTRAL NERVOUS SYSTEM: Awake and responsive. Cranial nerves 2 through 12 intact. Motor system examination shows generalized weakness. LABORATORY VALUES: White count is 11.5, H and H are 6.7 and 22.2. Sodium 136, potassium is 5.9, BUN and creatinine are 165 and 4.88. IMPRESSION: 1. Hyperkalemia. 2. End-stage renal disease. 3. Anemia, profound. 4. Coronary artery disease. 5. Gout. 6. Deconditioning. PLAN: 1. Type and cross and transfuse 1 unit. 2. Kayexalate 30 g p.o. x1 now. 3. Dialysis access possibly tomorrow. 4. Continue current medications. 5. DVT and stress ulcer prophylaxis. 6. Decubitus precaution. 7. Routine laboratory values. 8. May need Epogen. Job ID: [id number]
[2018-12-10] MEDS ORDERED: Nitroglycerin 0.4 MG TAB (25 Tab Bottle) ONE (17:51)
[2018-12-10] MEDS ORDERED: Nitroglycerin 0.4 MG TAB (25 Tab Bottle) SL PRN (18:08)
[2018-12-10] MEDS: Lidocaine Patch Removal 1 EACH TOP SCH (20:21)
[2018-12-11 06:23] LABS: #Basophils 0.1 thou/uL (0.0-0.2); #Eosinphils 0.1 thou/uL (0.0-0.7); #Lymphocytes 2.2 thou/uL (1.20-3.40); #Monocytes 1.4 thou/uL (0.11-0.59); #Neutrophils 9.2 thou/uL (1.40-6.50); %Basophils 0.6 % (0.0-1.0); %Eosinophils 0.6 % (0.0-10.0); %Lymphocytes 16.8 % (21.0-51.0); %Monocytes 10.5 % (0.0-10.0); %Neutrophils 71.4 % (42.0-75.0); Hemoglobin 8.7 g/dL (12.0-16.0); Mean Corpuscular HGB CONC 30.5 g/dL (32.0-36.0); Mean Corpuscular Hemoglobin 27.3 pg (27.0-31.0); Mean Corpuscular Volume 89.3 fL (78.0-98.0); Mean Platelet Volume 6.8 fL (7.4-10.4); Platelet Count 455 thou/uL (130-400); RBC Distribution Width 16.1 % (11.5-14.5); Red Blood Cell (RBC) Count 3.19 mill/uL (4.20-5.40); White Blood Cell (WBC) Count 12.8 thou/uL (4.8-10.8)
[2018-12-11 06:36] LABS: Anion Gap 24 mmol/L (10-20); Calc. Creatinine Clearance 15 mL/min (70-130); Calcium 9.2 mg/dL (7.8-10.44); Carbon Dioxide 15 mmol/L (23-31); Chloride 107 mmol/L (98-107); Estimated GFR-MDRD 11; Glucose 73 mg/dL (80-115); Potassium 4.9 mmol/L (3.5-5.1); Sodium 141 mmol/L (136-145)
[2018-12-11 07:46] LABS: BUN (Urea Nitrogen) 162 mg/dL (9.8-20.1)
[2018-12-11] MEDS: predniSONE 5 MG TAB PO SCH (07:58)
[2018-12-11] MEDS: Aspirin 81 mg Enteric Coated Tablet PO SCH (07:59)
[2018-12-11] MEDS: cloNIDine 0.1 MG TAB PO SCH ×2 (07:59→20:34)
[2018-12-11] MEDS: hydrALAZINE 25 MG TAB PO SCH ×3 (07:59→20:34)
[2018-12-11] MEDS: Amlodipine 10 MG TAB PO SCH (07:59)
[2018-12-11] MEDS: Acetaminophen 500 MG TAB PO PRN ×3 (08:00→22:32)
[2018-12-11] MEDS: Lidocaine 5% Patch TD SCH (08:00)
--- NOTE | 2018-12-11 13:01 | PRG ---
DATE OF SERVICE: 12/11/2018 SUBJECTIVE: Ms. Skaggs saw Dr. Jalloh this morning. She is scheduled for an AV fistula placement on Monday. I am going to check with her remnant sorter and see if they need to place a temporary dialysis access as well. The patient received 1 unit of blood transfusion and did have some chest pain at the start of it, but after getting some Tylenol and sublingual nitroglycerin, she had no further episodes of chest pain. Her EKG was completely normal. Enzymes were not done given her history of renal failure and that they are not going to be very accurate. The patient had no other clinical signs of [place] or a transfusion reaction. She was also given Kayexalate yesterday for elevated potassium. OBJECTIVE: VITAL SIGNS: She is afebrile, heart rate 68, respirations 18, oxygen saturation 99% on room air, and blood pressure was 171/73, so this morning before she got all her blood pressure medicines, recheck has not been done. GENERAL: She is afebrile. CARDIOVASCULAR SYSTEM: S1 and S2 plus. RESPIRATORY SYSTEM: Normal vesicular breath sounds. ABDOMEN: Soft and nontender. Bowel sounds heard in all quadrants. EXTREMITIES: Trace pedal edema. CENTRAL NERVOUS SYSTEM: Awake and responsive. Cranial nerves 2 through 12 intact and generalized weakness. LABORATORY DATA: Sodium 141, potassium 4.9, BUN and creatinine are 162 and 4.62. White count is 12.8, H and H are 8.7 and 28.5. IMPRESSION: 1. End-stage renal disease, requires hemodialysis, and the patient is agreeable. 2. Anemia, likely due to chronic kidney disease, better, status post blood transfusion. 3. Hyperkalemia, which is resolved. 4. Longstanding history of hypertension and noncompliance. 5. Coronary artery disease. 6. History of gout. PLAN: 1. Continue current medications. 2. Discussed with Nephrology and see if a temporary dialysis access needs to be placed. 3. Physical therapy. 4. Heart healthy and renal diet. 5. Continue to monitor potassium and renal function and blood count. 6. DVT prophylaxis with PlexiPulses. 7. Stress ulcer prophylaxis. 8. Continue PT/OT. 9. Discussed with the patient in detail and all questions answered. Job ID: [id number]
[2018-12-11] MEDS: Lidocaine Patch Removal 1 EACH TOP SCH (20:35)
[2018-12-12] MEDS: Amlodipine 10 MG TAB PO SCH (08:53)
[2018-12-12] MEDS: predniSONE 5 MG TAB PO SCH (08:54)
[2018-12-12] MEDS: cloNIDine 0.1 MG TAB PO SCH ×2 (08:54→20:44)
[2018-12-12] MEDS: hydrALAZINE 25 MG TAB PO SCH ×3 (08:54→20:44)
[2018-12-12] MEDS: Lidocaine 5% Patch TD SCH (08:54)
[2018-12-12] MEDS: Acetaminophen 500 MG TAB PO PRN (08:55)
[2018-12-12] MEDS: Aspirin 81 mg Enteric Coated Tablet PO SCH (08:59)
[2018-12-12] MEDS: Lidocaine Patch Removal 1 EACH TOP SCH (20:44)
[2018-12-13] MEDS: Amlodipine 10 MG TAB PO SCH (08:43)
[2018-12-13] MEDS: Acetaminophen 500 MG TAB PO PRN (08:43)
[2018-12-13] MEDS: Aspirin 81 mg Enteric Coated Tablet PO SCH (08:44)
[2018-12-13] MEDS: predniSONE 5 MG TAB PO SCH (08:44)
[2018-12-13] MEDS: cloNIDine 0.1 MG TAB PO SCH ×2 (08:44→20:46)
[2018-12-13] MEDS: hydrALAZINE 25 MG TAB PO SCH ×3 (08:44→20:46)
[2018-12-13] MEDS: Lidocaine 5% Patch TD SCH (08:45)
[2018-12-13] MEDS: Lidocaine Patch Removal 1 EACH TOP SCH (20:46)
[2018-12-14] MEDS: predniSONE 5 MG TAB PO SCH (05:33)
[2018-12-14] MEDS: Amlodipine 10 MG TAB PO SCH (05:34)
[2018-12-14] MEDS: Aspirin 81 mg Enteric Coated Tablet PO SCH (05:34)
[2018-12-14] MEDS: cloNIDine 0.1 MG TAB PO SCH ×2 (05:35→21:10)
[2018-12-14] MEDS: hydrALAZINE 25 MG TAB PO SCH ×3 (05:35→21:10)
[2018-12-14] MEDS: Lidocaine 5% Patch TD SCH (05:35)
[2018-12-14] MEDS: Acetaminophen 500 MG TAB PO PRN (17:27)
[2018-12-14] MEDS: Lidocaine Patch Removal 1 EACH TOP SCH (21:11)
[2018-12-15] MEDS: Acetaminophen 500 MG TAB PO PRN (01:08)
[2018-12-15 05:32] LABS: #Eosinphils 0.1 thou/uL (0.0-0.7); #Lymphocytes 1.4 thou/uL (1.20-3.40); #Monocytes 0.9 thou/uL (0.11-0.59); %Basophils 0.5 % (0.0-1.0); %Eosinophils 1.3 % (0.0-10.0); %Monocytes 9.8 % (0.0-10.0); %Neutrophils 73.5 % (42.0-75.0); Hemoglobin 7.2 g/dL (12.0-16.0); Mean Corpuscular HGB CONC 31.6 g/dL (32.0-36.0); Mean Corpuscular Hemoglobin 28.3 pg (27.0-31.0); Mean Corpuscular Volume 89.6 fL (78.0-98.0); Mean Platelet Volume 6.4 fL (7.4-10.4); Platelet Count 262 thou/uL (130-400); RBC Distribution Width 16.6 % (11.5-14.5); Red Blood Cell (RBC) Count 2.53 mill/uL (4.20-5.40); White Blood Cell (WBC) Count 9.5 thou/uL (4.8-10.8)
[2018-12-15 05:41] LABS: Anion Gap 20 mmol/L (10-20); Calc. Creatinine Clearance 16 mL/min (70-130); Calcium 8.8 mg/dL (7.8-10.44); Carbon Dioxide 17 mmol/L (23-31); Chloride 109 mmol/L (98-107); Estimated GFR-MDRD 12; Glucose 81 mg/dL (80-115); Potassium 5.8 mmol/L (3.5-5.1); Sodium 140 mmol/L (136-145)
[2018-12-15 06:09] LABS: BUN (Urea Nitrogen) 143 mg/dL (9.8-20.1)
[2018-12-15] MEDS ORDERED: HYDROcodone/Acetaminophen 5/325 mg Tablet PO PRN (06:39)
[2018-12-15 07:46] VITALS: BP 173/74; TEMP 97.9
[2018-12-15] MEDS: Amlodipine 10 MG TAB PO SCH (08:02)
[2018-12-15] MEDS: hydrALAZINE 25 MG TAB PO SCH (08:02)
[2018-12-15] MEDS: Aspirin 81 mg Enteric Coated Tablet PO SCH (08:02)
[2018-12-15] MEDS: predniSONE 5 MG TAB PO SCH (08:02)
[2018-12-15] MEDS: cloNIDine 0.1 MG TAB PO SCH (08:02)
[2018-12-15] MEDS: Lidocaine 5% Patch TD SCH (08:03)
[2018-12-15 11:13] LABS: HBSAg Index 0.21 S/CO (0-0.99); Hep B Surf Ag Non-Reactive S/CO (NonReactive); Hep C IgG Ab Non-Reactive (NonReactive); Hep C Index 0.04 S/CO (0-0.79)
[2018-12-15 12:04] LABS: HBSAB Concentration 165.75 mIU/mL
[2018-12-15 12:05] LABS: Hep B Core Total Index 10.77 S/CO (0-0.79)
[2018-12-15 12:08] LABS: Hep B Surf AB Reactive (NonReactive)
[2018-12-15 12:09] LABS: Hep B Core Total Ab Reactive (NonReactive)
--- NOTE | 2018-12-17 13:01 | PRG ---
DATE OF SERVICE: 12/13/2018 SUBJECTIVE: Ms. Skaggs is doing well. Denies any complaints. She is scheduled for her dialysis access tomorrow. I had spoken with Dr. Bess and he was going to talk to Dr. Jalloh and see if they can place a Guerrero catheter at the same time for immediate Hemodialysis if needed. Patient resting comfortably and no family at bedside. OBJECTIVE: VITAL SIGNS: She is afebrile. Heart rate is 68, respirations are 18, oxygen saturation is 96% on room air, and blood pressure is 158/74. CARDIOVASCULAR SYSTEM: S1 and S2 plus. RESPIRATORY SYSTEM: Normal vesicular breath sounds. ABDOMEN: Soft and nontender. Bowel sounds heard in all quadrants. EXTREMITIES: Without cyanosis or clubbing, trace edema. CENTRAL NERVOUS SYSTEM: Awake and responsive. Cranial nerves 2 through 12 intact. Motor system, generalized weakness. IMPRESSION: 1. End-stage renal disease. 2. Hypertension. 3. Resolved hyperkalemia. 4. Deconditioning. 5. History of medical non compliance. 6. Coronary artery disease. 7. History of gout. PLAN: 1. Continue current medication regimen. 2. Dialysis access placement tomorrow. 3. Routine laboratory values. 4. Physical therapy. 5. DVT and stress ulcer prophylaxis. 6. Discussed with the patient and nursing in detail, and all questions answered. Job ID: [id number] MTDD
== END 2018-12-15 12:00 | disposition short-term general hospital (02) | DRG 640 ==
LOC: NAV ACUTE 15:58
PROVIDERS: ADMIT Internal Medicine; ATTEND Internal Medicine
DX: E87.5 Hyperkalemia (principal); N18.6 End stage renal disease; I12.0 Hypertensive chronic kidney disease with stage 5 chronic kidney disease or end stage renal disease; N17.9 Acute kidney failure, unspecified; Z66 Do not resuscitate; E87.1 Hypo-osmolality and hyponatremia; I25.10 Atherosclerotic heart disease of native coronary artery without angina pectoris; M10.9 Gout, unspecified; D72.829 Elevated white blood cell count, unspecified; D63.1 Anemia in chronic kidney disease; Z98.51 Tubal ligation status; Z90.710 Acquired absence of both cervix and uterus; Z88.5 Allergy status to narcotic agent; Z88.8 Allergy status to other drugs, medicaments and biological substances; Z79.899 Other long term (current) drug therapy
CPT/HCPCS: 36415; 36430; 80048; 85025; 86704; 86706; 86803; 86850; 86900; 86901; 87340; J7512; P9016

== ENCOUNTER 2018-12-22 19:28 | Inpatient (IN) | payer MEDICARE, OTHER ==
[2018-12-22] MEDS ORDERED: Acetaminophen 500 MG TAB PO PRN (21:55)
[2018-12-22] MEDS ORDERED: HYDROcodone/Acetaminophen 5/325 mg Tablet PO PRN (21:56)
[2018-12-22] MEDS ORDERED: cloNIDine 0.1 MG TAB PO SCH (22:00)
[2018-12-22] MEDS ORDERED: hydrALAZINE 25 MG TAB PO SCH (22:00)
[2018-12-23] MEDS ORDERED: Nitroglycerin 0.4 MG TAB (25 Tab Bottle) SL PRN (07:31)
[2018-12-23] MEDS ORDERED: Acetaminophen 500 MG TAB PO PRN (07:31)
[2018-12-23] MEDS ORDERED: HYDROcodone/Acetaminophen 5/325 mg Tablet PO PRN (07:31)
[2018-12-23] MEDS: Amlodipine 10 MG TAB PO SCH (08:56)
[2018-12-23] MEDS: hydrALAZINE 25 MG TAB PO SCH ×3 (08:56→20:33)
[2018-12-23] MEDS: Lidocaine 5% Patch TD SCH (08:57)
[2018-12-23] MEDS: Aspirin 81 mg Enteric Coated Tablet PO SCH (08:57)
[2018-12-23] MEDS: cloNIDine 0.1 MG TAB PO SCH ×2 (08:57→20:32)
[2018-12-23] MEDS: predniSONE 5 MG TAB PO SCH (08:57)
[2018-12-23] MEDS ORDERED: cloNIDine 0.1 MG TAB PO SCH (09:00)
[2018-12-23] MEDS ORDERED: predniSONE 5 MG TAB PO SCH (09:00)
[2018-12-23] MEDS ORDERED: Aspirin 81 mg Enteric Coated Tablet PO SCH (09:00)
[2018-12-23] MEDS ORDERED: hydrALAZINE 25 MG TAB PO SCH (09:00)
[2018-12-23] MEDS ORDERED: Lidocaine 5% Patch TD SCH (09:00)
[2018-12-23] MEDS ORDERED: Amlodipine 10 MG TAB PO SCH (09:00)
--- NOTE | 2018-12-23 15:00 | HP ---
HISTORY OF PRESENT ILLNESS: Ms. Skaggs is a pleasant 68-year-old black female who has a history of acute on chronic kidney disease and deconditioning. She initially refused dialysis, but then decided that she would be given a trial. She was admitted to [facility], had a temporary catheter placed in the right internal jugular, which was tunneled. The patient has also had access done on her right forearm. Postoperatively, she was very weak and felt that she needed physical therapy and occupational therapy, so she was transferred to [facility] for that. It was noted that she is a DNR. She continues to want to be a DNR. PAST MEDICAL HISTORY: Positive for; 1. Chronic kidney disease, stage 5. 2. Coronary artery disease. 3. Hypertension. 4. Gout. 5. History of noncompliance. PAST SURGICAL HISTORY: 1. Hysterectomy. 2. Tubal ligation. 3. Bilateral cataract extractions. 4. Temporary placement of a dialysis catheter, right internal jugular. 5. Right forearm dialysis access. FAMILY HISTORY: Reveals the patient's father is alive at age 80 and has colon cancer. The patient's mother is alive at age 80 and has breast cancer and heart disease. The patient had one brother who of throat cancer. The patient has a son who was on dialysis, but had a kidney transplant 2 weeks ago. The patient had a son who of unknown etiology. SOCIAL HISTORY: The patient does not smoke. Does not drink. She states she does not use recreational drugs. ALLERGIES: THE PATIENT IS ALLERGIC TO CODEINE, LISINOPRIL, AND TRAMADOL. PRESENT MEDICATIONS: Reveal the patient is presently on the following; 1. Acetaminophen 500 mg q.6 p.r.n. 2. [place] 5/325 one q.6 hours p.r.n. moderate pain. 3. Amlodipine. 4. Norvasc 10 mg daily. 5. Aspirin 81 mg a day. 6. Clonidine 0.1 mg b.i.d. 7. Apresoline 50 mg t.i.d. 8. Lidoderm patch 5% every morning. 9. Metoprolol succinate 25 mg daily. 10. Nitroglycerin (Nitrostat) 0.4 mg sublingual q.5 minutes p.r.n. chest pain. 11. Prednisone 5 mg daily. REVIEW OF SYSTEMS: CONSTITUTIONAL: The patient denies constitutional problems including fever, chills, or night sweats. HEENT: The patient denies HEENT of changing of vision or changing of hearing. RESPIRATORY: The patient denies any respiratory problems including cough, cold, congestion, or upper respiratory illnesses. CARDIOVASCULAR: The patient denies any cardiovascular problems including chest pain, shortness of breath, palpitations, PND, orthopnea, or edema. GASTROINTESTINAL: The patient denies any gastrointestinal problems including nausea, vomiting, diarrhea, constipation, black tarry stools, or bright red stools. : The patient denies any symptoms including frequency, urgency, hematuria, or dysuria. NEUROLOGIC: The patient denies any neurological problems including focal numbness or changing weakness or fainting spells. SKIN: The patient denies any skin problems including new or changing rashes or skin lesions. PSYCHOLOGICAL: The patient denies any psychological problems including anxiety or depressive disorder signs or symptoms. PHYSICAL EXAMINATION: GENERAL: This is a well-developed, well-nourished, very pleasant 68-year-old black female who is resting comfortably, again ready to eat her breakfast. VITAL SIGNS: Reveal blood pressure 160/59, pulse 69, respirations 20, O2 saturation 96% on room air, and T-max 98.5. GENERAL: This is a well-developed, well-nourished, very pleasant black female, in no apparent distress at this time. HEENT: Normocephalic and nontraumatic cranium. Pupils are equally round and reactive. Extraocular movements are intact. Nose and throat are slightly dry. NECK: Supple without masses, nodes, or bruits. A right internal jugular dialysis catheter is tunneled and is new as of 3 days ago. HEART: Reveals a regular rate and rhythm without murmurs, gallops, or rubs. LUNGS: Clear to auscultation. No rales, rhonchi, wheezes, or cough is noted. ABDOMEN: Obese, soft, nontender without organomegaly. Normal bowel sounds are heard in all 4 quadrants. No rebound or guarding is noted. : Deferred. EXTREMITIES: Reveal 1+ edema. The patient has new vascular access at right forearm for her dialysis in the future. NEUROLOGIC: The patient is oriented to person, place, and time. The patient has generalized weakness. ASSESSMENT: 1. End-stage renal disease, presently on hemodialysis Monday, Monday, and Monday. 2. Hypertension. 3. Coronary artery disease. 4. Gout. 5. Hyponatremia. 6. Recent mild leukocytosis, secondary to steroids. 7. Generalized arthralgia. 8. Generalized weakness with deconditioning. PLAN: 1. The patient was admitted to swing bed for physical therapy and occupational therapy to increase her strength and stamina. 2. The patient will continue hemodialysis at [facility] on Monday, Monday, Fridays. The time is to be identified, so she already has an appointment for tomorrow morning sometimes, but we do not have a different time. 3. Continue present medications. 4. Stress ulcer prophylaxis. 5. DVT prophylaxis. 6. Decubitus precautions. 7. Physical therapy and occupational therapy. Job ID: [id number]
[2018-12-23] MEDS: Lidocaine Patch Removal 1 EACH TOP SCH (20:35)
[2018-12-24] MEDS: Amlodipine 10 MG TAB PO SCH (08:09)
[2018-12-24] MEDS: cloNIDine 0.1 MG TAB PO SCH ×2 (08:10→21:20)
[2018-12-24] MEDS: Aspirin 81 mg Enteric Coated Tablet PO SCH (08:10)
[2018-12-24] MEDS: Lidocaine 5% Patch TD SCH (08:12)
[2018-12-24] MEDS: predniSONE 5 MG TAB PO SCH (08:12)
[2018-12-24] MEDS ORDERED: hydrALAZINE 10 MG TAB ONE (08:23)
[2018-12-24] MEDS: hydrALAZINE 25 MG TAB PO SCH ×3 (08:28→21:21)
[2018-12-24 15:54] VITALS: BMI 28.3
[2018-12-24] MEDS: Lidocaine Patch Removal 1 EACH TOP SCH (21:21)
[2018-12-25] MEDS: Amlodipine 10 MG TAB PO SCH (09:02)
[2018-12-25] MEDS: hydrALAZINE 25 MG TAB PO SCH ×3 (09:03→21:31)
[2018-12-25] MEDS: cloNIDine 0.1 MG TAB PO SCH ×2 (09:03→21:31)
[2018-12-25] MEDS: Aspirin 81 mg Enteric Coated Tablet PO SCH (09:03)
[2018-12-25] MEDS: Lidocaine 5% Patch TD SCH (09:04)
[2018-12-25] MEDS: predniSONE 5 MG TAB PO SCH (09:04)
--- NOTE | 2018-12-25 14:06 | PRG ---
DATE OF SERVICE: 12/25/2018 SUBJECTIVE: Ms. Skaggs is up in her chair. She states she felt tired yesterday, but feels better today. She is tolerating her dialysis. She is noticing some tingling and numbness in her feet and hands, on and off. She states that there is family history of lupus and she wants tested for it. No other concerns or questions. OBJECTIVE: VITAL SIGNS: She is afebrile. Heart rate 67, respirations 16, oxygen saturation 93% on room air, and blood pressure 154/72. CARDIOVASCULAR: S1 and S2 plus. RESPIRATORY: Normal vesicular breath sounds. ABDOMEN: Soft and nontender. Bowel sounds heard in all quadrants. EXTREMITIES: Without cyanosis or clubbing. Trace edema. Peripheral pulses are palpable. CENTRAL NERVOUS SYSTEM: A and O x3. Cranial nerves 2 through 12 intact. Generalized weakness. IMPRESSION: 1. End-stage renal disease, recently started on hemodialysis. 2. Coronary artery disease. 3. Hypertension. 4. History of gout. 5. Possible peripheral neuropathy. 6. Family history of lupus. PLAN: 1. Check anti-[place] antibody. 2. Continue current medications. 3. Taper prednisone. 4. Continue hemodialysis. 5. Physical therapy. 6. DVT and stress ulcer prophylaxis. 7. Decubitus precautions. 8. Possible trial of gabapentin. 9. Discussed with the patient in detail. All questions answered. Job ID: [id number]
[2018-12-25] MEDS: Lidocaine Patch Removal 1 EACH TOP SCH (22:56)
[2018-12-26] MEDS: hydrALAZINE 25 MG TAB PO SCH ×2 (09:10→15:09)
[2018-12-26] MEDS: predniSONE 5 MG TAB PO SCH (09:10)
[2018-12-26] MEDS: Lidocaine 5% Patch TD SCH (09:11)
[2018-12-26] MEDS: cloNIDine 0.1 MG TAB PO SCH (09:11)
[2018-12-26] MEDS: Aspirin 81 mg Enteric Coated Tablet PO SCH (09:11)
[2018-12-26] MEDS: Amlodipine 10 MG TAB PO SCH (09:11)
[2018-12-26 19:45] VITALS: BP 197/91; TEMP 97.5
[2018-12-26] MEDS: Nitroglycerin 0.4 MG TAB (25 Tab Bottle) SL PRN ×3 (20:20→20:45)
[2018-12-26] MEDS ORDERED: Sodium Chloride 0.9% 0 ML ONE (20:29)
[2018-12-26] MEDS ORDERED: Mag-Al Plus 1200 MG/1200 MG/120 MG/30 ML UDCUP PO SCH (20:45)
[2018-12-28 17:34] LABS: Smith D IgG Antibody 1.5 EliAU/mL (<7 Negative)
== END 2018-12-26 20:48 | disposition short-term general hospital (02) | DRG 947 ==
LOC: NAV ACUTE 19:28
PROVIDERS: ADMIT Internal Medicine; ATTEND Internal Medicine
PROC: 5A1D70Z Performance of Urinary Filtration, Intermittent, Less than 6 Hours Per Day (ICD-10-PCS; principal; 2018-12-24)
DX: R53.1 Weakness (principal); N18.6 End stage renal disease; I12.0 Hypertensive chronic kidney disease with stage 5 chronic kidney disease or end stage renal disease; M10.9 Gout, unspecified; D72.829 Elevated white blood cell count, unspecified; T38.0X5A Adverse effect of glucocorticoids and synthetic analogues, initial encounter; Z66 Do not resuscitate; I25.10 Atherosclerotic heart disease of native coronary artery without angina pectoris; Z90.710 Acquired absence of both cervix and uterus; Z98.51 Tubal ligation status; Z98.42 Cataract extraction status, left eye; Z98.41 Cataract extraction status, right eye; Z88.5 Allergy status to narcotic agent; Z88.8 Allergy status to other drugs, medicaments and biological substances; Z79.82 Long term (current) use of aspirin; Z79.899 Other long term (current) drug therapy
CPT/HCPCS: 36415; 86235; J7512

== ENCOUNTER 2018-12-26 20:46 | Emergency (ER) | payer MEDICARE, MEDICAID ==
[2018-12-26] MEDS ORDERED: Aspirin Chewable 81 MG TAB ONE (21:14)
[2018-12-26 21:19] LABS: #Eosinphils 0.1 thou/uL (0.0-0.7); #Lymphocytes 1.2 thou/uL (1.20-3.40); #Monocytes 0.6 thou/uL (0.11-0.59); #Neutrophils 3.5 thou/uL (1.40-6.50); %Basophils 0.4 % (0.0-1.0); %Eosinophils 1.2 % (0.0-10.0); %Lymphocytes 22.7 % (21.0-51.0); %Monocytes 11.5 % (0.0-10.0); %Neutrophils 64.2 % (42.0-75.0); Hemoglobin 8.2 g/dL (12.0-16.0); Mean Corpuscular HGB CONC 29.6 g/dL (32.0-36.0); Mean Corpuscular Hemoglobin 27.6 pg (27.0-31.0); Mean Corpuscular Volume 93.4 fL (78.0-98.0); Mean Platelet Volume 7.1 fL (7.4-10.4); Platelet Count 240 thou/uL (130-400); Red Blood Cell (RBC) Count 2.96 mill/uL (4.20-5.40); White Blood Cell (WBC) Count 5.4 thou/uL (4.8-10.8)
[2018-12-26 21:19] LABS: Anion Gap 19 mmol/L (10-20); BUN (Urea Nitrogen) 16 mg/dL (9.8-20.1); Calc. Creatinine Clearance 0 mL/min (70-130); Calcium 8.2 mg/dL (7.8-10.44); Carbon Dioxide 28 mmol/L (23-31); Chloride 97 mmol/L (98-107); Estimated GFR-MDRD 34; Glucose 96 mg/dL (80-115); Potassium 3.6 mmol/L (3.5-5.1); Sodium 140 mmol/L (136-145)
[2018-12-26] MEDS ORDERED: Nitroglycerin 2% Ointment 1 INCH/1 GM Packet ONE (21:21)
--- NOTE | 2018-12-26 21:37 | RAD ---
EXAM: CHEST ONE VIEW HISTORY: Chest pain COMPARISON: 11/04/2017 FINDINGS: A tunneled right internal jugular vein hemodialysis catheter is noted in place with tip overlying the right atrium. The cardiac silhouette is magnified by projection but does appear mildly enlarged. The pulmonary vasc ulature is within normal limits. The lungs are clear. The osseous structures are intact. IMPRESSION: 1. Tunneled right internal jugular vein hemodialysis catheter. 2. Mild cardiomegaly. 3. No acute cardiopulmonary process.
== END 2018-12-26 21:49 | disposition short-term general hospital (02) ==
LOC: NAV ERS 20:46
DX: R07.89 Other chest pain (principal); I12.0 Hypertensive chronic kidney disease with stage 5 chronic kidney disease or end stage renal disease; N18.6 End stage renal disease; I25.10 Atherosclerotic heart disease of native coronary artery without angina pectoris; M10.9 Gout, unspecified; Z99.2 Dependence on renal dialysis; F41.9 Anxiety disorder, unspecified; F32.9 Major depressive disorder, single episode, unspecified; F17.220 Nicotine dependence, chewing tobacco, uncomplicated; Z79.899 Other long term (current) drug therapy; Z79.82 Long term (current) use of aspirin
CPT/HCPCS: 71045; 85025; 93005

== ENCOUNTER 2018-12-27 20:54 | Inpatient (IN) | payer MEDICARE, OTHER ==
[2018-12-27] MEDS ORDERED: Acetaminophen 500 MG TAB PO PRN (22:03)
[2018-12-27] MEDS ORDERED: Nitroglycerin 0.4 MG TAB (25 Tab Bottle) SL PRN (22:05)
[2018-12-27 22:49] VITALS: BMI 28.5
[2018-12-28] MEDS: clonazePAM 0.5 MG TAB PO PRN ×2 (01:28→18:44)
[2018-12-28 06:12] LABS: Band 4 % (5-11); Eosinophils 2 % (0-10); Hemoglobin 7.6 g/dL (12.0-16.0); Hypochromia SLIGHT = 6-15 cells (100X) (0-5/hpf); Lymphocytes 20 % (21-51); MDiff Complete? YES; Mean Corpuscular HGB CONC 29.4 g/dL (32.0-36.0); Mean Corpuscular Hemoglobin 27.2 pg (27.0-31.0); Mean Corpuscular Volume 92.6 fL (78.0-98.0); Mean Platelet Volume 6.7 fL (7.4-10.4); Monocytes 10 % (0-10); Neutrophil 64 % (42-75); Ovalocytes SLIGHT = 2-5 cells (100X) (0-1/hpf); Platelet Count 249 thou/uL (130-400); Platelet Morphology Comment Appears Adequate; RBC Distribution Width 16.5 % (11.5-14.5); Red Blood Cell (RBC) Count 2.79 mill/uL (4.20-5.40); Target Cells SLIGHT = 2-5 cells (100X) (0-1/hpf); White Blood Cell (WBC) Count 4.8 thou/uL (4.8-10.8)
[2018-12-28 06:17] LABS: Anion Gap 18 mmol/L (10-20); BUN (Urea Nitrogen) 31 mg/dL (9.8-20.1); Calc. Creatinine Clearance 17 mL/min (70-130); Calcium 9.3 mg/dL (7.8-10.44); Carbon Dioxide 27 mmol/L (23-31); Chloride 100 mmol/L (98-107); Estimated GFR-MDRD 13; Glucose 94 mg/dL (80-115); Potassium 3.8 mmol/L (3.5-5.1); Sodium 141 mmol/L (136-145)
[2018-12-28] MEDS ORDERED: Amlodipine 10 MG TAB PO SCH (09:00)
[2018-12-28] MEDS: Aspirin 81 mg Enteric Coated Tablet PO SCH (09:09)
[2018-12-28] MEDS: predniSONE 5 MG TAB PO SCH (09:09)
[2018-12-28] MEDS: Lidocaine 5% Patch TD SCH (09:09)
[2018-12-28] MEDS: cloNIDine 0.1 MG TAB PO SCH ×2 (09:10→21:11)
[2018-12-28] MEDS: hydrALAZINE 25 MG TAB PO SCH ×3 (09:10→21:09)
--- NOTE | 2018-12-28 12:41 | HP ---
CHIEF COMPLAINT: Atypical chest pain requiring transfer to [facility], where enzymes and nuclear stress test were both negative. HISTORY OF PRESENTING ILLNESS: This is a 68-year-old female with longstanding history of noncompliance, who was recently diagnosed with end-stage renal disease due to progression of her chronic kidney disease. She finally agreed for dialysis, and she had a dialysis access placed and underwent dialysis and has been feeling better. She was transferred here for rehabilitation and was doing well when she had an episode of burning substernal chest pain. EKG done during that time did not show any acute ST-T wave changes. She does have history of coronary artery disease, and she apparently told the ER physician that she gets this about 3 times a week, and normally, it resolves spontaneously. She was given Maalox, which did not help, and then she was given sublingual nitroglycerin, which took the pain down to 4. She was started on long-acting Imdur, but she had recurrence of pain requiring her to be transferred to the ER and from there to [facility] in [place], where she underwent the nuclear stress test and was sent back here. Last night, she apparently woke up complaining of shortness of breath and chest pain, and EKG done at that time showed possible atrial fibrillation/flutter with nonspecific ST-T wave changes, heart rate of 122 with systolic blood pressure high in the 170s. I advised nursing to stop her amlodipine and change it to Cardizem 30 mg p.o. t.i.d., and to give her first dose now. She also apparently seemed very anxious, so I started her on . I advised them to do stat cardiac enzymes then and then again in the morning. Apparently, the patient rested comfortably with this, and repeat EKG this morning shows normal sinus rhythm. She is now refusing to go to dialysis and explained her the importance of being complaint with dialysis as she will otherwise go 3 days without dialysis and most likely will get fluid overload and have further episodes of shortness of breath and chest pain. Her family is also talking to her and trying to convince her. PAST MEDICAL HISTORY: 1. Coronary artery disease with negative stress test. 2. Hypertension. 3. Gout. 4. Longstanding history of noncompliance. 5. End-stage renal disease, just started on dialysis. PAST SURGICAL HISTORY: 1. Hysterectomy. 2. Tubal ligation. 3. Bilateral cataract extraction. 4. Temporary placement of dialysis catheter. 5. Right forearm AV fistula placement. FAMILY HISTORY: Father with colon cancer. Mother with heart disease and breast cancer. PSYCHOSOCIAL HISTORY: Denies any tobacco, alcohol, or IV drug abuse. She does have a longstanding history of medical noncompliance. MEDICATIONS: She has been transferred here on the following medications: 1. Tylenol 500 q.6 p.r.n. 2. [place] 5/325 q.6 p.r.n. 3. Ecotrin 81 daily. 4. . 5. Amlodipine 10 mg daily. 6. Apresoline 50 mg t.i.d. 7. Lidoderm patch daily. 8. Toprol-XL 25 daily. 9. Sublingual nitroglycerin 0.4 mg q.5 minutes p.r.n. 10. Prednisone 5 mg daily, which will be discontinued. ALLERGIES: 1. LISINOPRIL. 2. TRAMADOL. REVIEW OF SYSTEMS: CARDIOVASCULAR: Denies any chest pain, shortness of breath, or palpitations currently. She did have these episodes early this morning. RESPIRATORY: Denies any chronic cough, expectoration, or pleuritic-type chest pain. GASTROINTESTINAL: Denies any nausea, vomiting, diarrhea, constipation, hematemesis, melena, or hematochezia. GENITOURINARY: Denies any frequency, urgency, dysuria, or hematuria. CENTRAL NERVOUS SYSTEM: Denies any focal numbness, weakness, or fainting spells. SHEENT: No difficulty with speech, vision, hearing, or swallowing. No changes. Skin; denies any rash. PHYSICAL EXAMINATION: GENERAL: This is a 68-year-old female, who is resting comfortably in bed and denies any concerns. VITAL SIGNS: She is afebrile, heart rate 81, respirations 20, oxygen saturation 98% on room air, blood pressure 146/67. HEENT: Normocephalic and atraumatic. Pupils equally reactive to light and accommodation. NECK: No JVD, thyromegaly, cervical lymphadenopathy, or throat exudates. No carotid bruits. CARDIOVASCULAR: S1 and S2 plus. Rate and rhythm regular. RESPIRATORY: Normal vesicular breath sounds heard in all lung castañeda. ABDOMEN: Soft and nontender. Bowel sounds heard in all quadrants. EXTREMITIES: Without cyanosis or clubbing. Peripheral pulses are palpable. CENTRAL NERVOUS SYSTEM: Awake and responsive. Cranial nerves 2 through 12 intact. Motor system examination shows generalized weakness. SKIN: Both the right arm AV fistula and the temporary dialysis access catheter sites are healthy. LABORATORY DATA: Laboratory values done this morning show a white count of 4.8, H and H are 7.6 and 25.8 with a platelet count of 249. Sodium 141, potassium 3.8, BUN and creatinine are 31 and 4.11. Troponin was less than 0.010. EKG shows normal sinus rhythm. IMPRESSION: 1. Episode of possibly atrial fibrillation/flutter, which has since resolved. 2. History of coronary artery disease, but with a negative nuclear stress test just yesterday. 3. Hypertension. 4. End-stage renal disease. 5. Gout. 6. Longstanding history of medical noncompliance. PLAN: 1. Stop prednisone. 2. Continue other medications. 3. Heart-healthy renal diet. 4. Reinforced compliance with hemodialysis. 5. Monitor for any recurrence of the atrial fibrillation/flutter. Currently, hold off on any anticoagulation. She does get the heparin with dialysis. We will continue Cardizem in place of amlodipine. 6. Routine laboratory values. 7. PT and OT eval and treat. 8. DVT prophylaxis with PlexiPulses. 9. Discussed with the patient and nursing in detail. All questions answered. Job ID: [id number]
[2018-12-28] MEDS: Lidocaine Patch Removal 1 EACH TOP SCH (21:12)
[2018-12-29] MEDS: HYDROcodone/Acetaminophen 5/325 mg Tablet PO PRN (09:36)
[2018-12-29] MEDS: predniSONE 5 MG TAB PO SCH (09:36)
[2018-12-29] MEDS: hydrALAZINE 25 MG TAB PO SCH ×2 (09:37→15:14)
[2018-12-29] MEDS: Aspirin 81 mg Enteric Coated Tablet PO SCH (09:37)
[2018-12-29] MEDS: cloNIDine 0.1 MG TAB PO SCH ×2 (09:37→20:57)
[2018-12-29] MEDS: Lidocaine 5% Patch TD SCH (09:38)
--- NOTE | 2018-12-29 13:51 | PRG ---
DATE OF SERVICE: 12/29/2018 SUBJECTIVE: Ms. Skaggs is doing well. She did go to dialysis yesterday. She states that she felt much better after dialysis. No further chest pain. Denies any lightheadedness, dizziness. We again reinforced compliance. No family at bedside. OBJECTIVE: VITAL SIGNS: She is afebrile. Heart rate 80, respirations 16, oxygen saturation 95% on room air, and blood pressure 146/65. CARDIOVASCULAR SYSTEM: S1, S2 plus. RESPIRATORY SYSTEM: Normal vesicular breath sounds. ABDOMEN: Soft, nontender. Bowel sounds in all quadrants. EXTREMITIES: Without cyanosis, clubbing. Peripheral pulses are palpable. CENTRAL NERVOUS SYSTEM: AAO x3. Cranial nerves 2 through 12 intact. Improving deconditioning. IMPRESSION: 1. End-stage renal disease, requiring hemodialysis. 2. Coronary artery disease with negative stress test. 3. Hypertension. 4. Gout. 5. Episode of atrial fibrillation/flutter, resolved with starting Cardizem. 6. History of noncompliance. PLAN: 1. Continue current medications. 2. Heart-healthy renal diet. 3. Hemodialysis. 4. DVT and stress ulcer prophylaxis. 5. Decubitus precautions. 6. Routine laboratory values. 7. PT. 8. Discharge planning. Job ID: [id number] MTDD
[2018-12-29] MEDS: clonazePAM 0.5 MG TAB PO PRN (20:56)
[2018-12-29] MEDS: Lidocaine Patch Removal 1 EACH TOP SCH (20:58)
[2018-12-30] MEDS: cloNIDine 0.1 MG TAB PO SCH ×2 (09:10→21:35)
[2018-12-30] MEDS: predniSONE 5 MG TAB PO SCH (09:10)
[2018-12-30] MEDS: Aspirin 81 mg Enteric Coated Tablet PO SCH (09:10)
[2018-12-30] MEDS: HYDROcodone/Acetaminophen 5/325 mg Tablet PO PRN ×2 (09:13→18:19)
[2018-12-30] MEDS: Lidocaine 5% Patch TD SCH (09:16)
--- NOTE | 2018-12-30 15:55 | PRG ---
DATE OF SERVICE: SUBJECTIVE: Ms. Skaggs is up in her chair and denies any complaints. Her son is in the room. She states that she is feeling much better. Plan is to stop her prednisone today. OBJECTIVE: VITAL SIGNS: She is afebrile. Heart rate is 71, respirations 18, blood pressure 128/62, and oxygen saturations 94% on room air. CARDIOVASCULAR: S1 and S2 plus. RESPIRATORY: Normal vesicular breath sounds. ABDOMEN: Soft, nontender. Bowel sounds in all quadrants. EXTREMITIES: Without cyanosis, clubbing. Peripheral pulses are palpable. CENTRAL NERVOUS SYSTEM: AAO x3. Cranial nerves 2 through 12 intact. Generalized weakness. IMPRESSION: 1. End-stage renal disease, tolerating dialysis. 2. History of atrial fibrillation and flutter, now back in sinus rhythm. 3. Hypertension. 4. History of coronary artery disease with a negative nuclear stress test. 5. Anemia of chronic disease. PLAN: 1. Continue current medications. 2. Heart healthy diet. 3. Monitor heart rate and rhythm. 4. Hemodialysis per Nephrology. 5. Physical therapy. 6. Stop prednisone. She was on it for presumed gout, but that has pretty much resolved. Uric acid level was normal, probably related to renal failure and not being on dialysis at that point. Discussed with the patient and family and nursing in detail, and all questions answered. Job ID: [id number]
[2018-12-30] MEDS: clonazePAM 0.5 MG TAB PO PRN (18:19)
[2018-12-30] MEDS: Lidocaine Patch Removal 1 EACH TOP SCH (21:36)
[2018-12-31] MEDS: Lidocaine 5% Patch TD SCH (09:33)
[2018-12-31] MEDS: Aspirin 81 mg Enteric Coated Tablet PO SCH (09:34)
[2018-12-31] MEDS: cloNIDine 0.1 MG TAB PO SCH ×2 (09:34→21:07)
[2018-12-31] MEDS: HYDROcodone/Acetaminophen 5/325 mg Tablet PO PRN ×2 (09:43→17:16)
[2018-12-31] MEDS: Lidocaine Patch Removal 1 EACH TOP SCH (21:07)
[2018-12-31] MEDS: clonazePAM 0.5 MG TAB PO PRN (21:07)
[2019-01-01] MEDS: HYDROcodone/Acetaminophen 5/325 mg Tablet PO PRN ×3 (00:01→14:32)
[2019-01-01 08:05] VITALS: TEMP 100
[2019-01-01] MEDS: cloNIDine 0.1 MG TAB PO SCH (08:20)
[2019-01-01] MEDS: Aspirin 81 mg Enteric Coated Tablet PO SCH (08:20)
[2019-01-01 08:22] VITALS: BP 133/65
[2019-01-01] MEDS: Lidocaine 5% Patch TD SCH (08:22)
[2019-01-01] MEDS: clonazePAM 0.5 MG TAB PO PRN (14:39)
--- NOTE | 2019-01-01 16:57 | DIS ---
DATE OF ADMISSION: 12/27/2018 DATE OF DISCHARGE: 01/01/2019 PRINCIPAL DIAGNOSIS: New onset of end-stage renal disease, just started on dialysis. SECONDARY DIAGNOSES: 1. Hypertension. 2. Coronary artery disease with recent negative nuclear stress test. 3. History of gout. 4. Long-standing history of noncompliance. 5. Deconditioning, improved. COMPLICATIONS: None. ADVERSE REACTIONS: None. PROCEDURES: None. CONSULTATIONS: None. HOSPITAL COURSE: The patient was admitted initially after being admitted to the hospital with uncontrolled hypertension, episodes of gout, and worsening renal failure and was recommended dialysis. She refused dialysis and she came here for therapy. We were able to convince her to agree to dialysis, so an appointment was scheduled with Dr. Jalloh to place a temporary dialysis access as well as an AV fistula. Then, she was admitted to [facility] in [place] and underwent a couple of treatments with dialysis and then came back to us here. In 2 days, she developed chest pain which was not responding to nitroglycerin, and with her history of heart disease, she was sent back to [place]. Her troponins were negative. She had a nuclear stress test done, which was normal and then she was sent back here. She has worked with therapy and has improved enough to be discharged home. She does need home health and that is being arranged. They are trying to arrange to have her transportation for dialysis as she does not drive and she is homebound. She does meet criteria for home health due to her significant deconditioning and requires physical therapy and occupational therapy. She also needs her vital signs monitored and make sure that her blood pressure stays under control and there is no fluctuation. Of note, she did have an episode of atrial fibrillation and flutter while in the hospital and she converted with Cardizem. She has not had any further episodes and this needs to be monitored as well. PHYSICAL EXAMINATION: VITAL SIGNS: On the day of discharge, she is afebrile. Heart rate is 83, respirations 19, oxygen saturation 97% on room air, and blood pressure is 133/65. CARDIOVASCULAR SYSTEM: S1 and S2 plus. RESPIRATORY SYSTEM: Normal vesicular breath sounds. ABDOMEN: Soft and nontender. Bowel sounds heard in all quadrants. EXTREMITIES: Without cyanosis or clubbing. Evidence for DJD is present. CENTRAL NERVOUS SYSTEM: Awake and responsive. Cranial nerves 2 through 12 grossly intact. Improving deconditioning. DISCHARGE MEDICATIONS: 1. Tylenol 500 mg q.6 p.r.n. 2. Ecotrin 81 mg daily. 3. Clonidine 0.1 mg p.o. b.i.d. 4. Cardizem 30 mg p.o. t.i.d. 5. Toprol-XL 25 mg daily. 6. Sublingual nitroglycerin 0.4 mg q.5 minutes p.r.n. chest pain. DISCHARGE INSTRUCTIONS: Activity as tolerated. She is to do dialysis Monday, Monday, and Monday. Case Management is going to arrange transportation and also home health will be arranged of the patient's choosing to do senior living visit, PT/OT, to monitor her blood pressure, her response to dialysis, and monitor her heart rate. She also needs therapy to continue to increase her strengthening and balance. She is homebound and she meets criteria. This can be used as a [id number] for the home health. The only prescription she needs is the Cardizem and I have sent it to [facility] here in [facility], which is her preferred pharmacy. She is to follow up with her PCP or with me in 7 to 10 days. She is to call us with any questions or concerns. No family at bedside. Total time spent on this discharge 35 minutes. Job ID: [id number]
== END 2019-01-01 16:46 | disposition home health service (06) | DRG 682 ==
LOC: NAV ACUTE 20:54
PROVIDERS: ADMIT Internal Medicine; ATTEND Internal Medicine
DX: I12.0 Hypertensive chronic kidney disease with stage 5 chronic kidney disease or end stage renal disease (principal); N18.6 End stage renal disease; I48.92 Unspecified atrial flutter; I48.91 Unspecified atrial fibrillation; I25.10 Atherosclerotic heart disease of native coronary artery without angina pectoris; M10.9 Gout, unspecified; D63.1 Anemia in chronic kidney disease; R53.81 Other malaise; Z91.19 Patient's noncompliance with other medical treatment and regimen; Z90.710 Acquired absence of both cervix and uterus; Z98.51 Tubal ligation status; Z98.41 Cataract extraction status, right eye; Z98.42 Cataract extraction status, left eye; Z88.8 Allergy status to other drugs, medicaments and biological substances
CPT/HCPCS: 36415; 80048; 84484; 85025; J7512

== ENCOUNTER 2019-01-04 18:41 | Inpatient (IN) | payer MEDICARE, OTHER ==
[2019-01-04] MEDS ORDERED: Senokot S 8.6-50 MG TAB PO PRN (19:36)
[2019-01-04] MEDS: hydrALAZINE 25 MG TAB PO SCH (20:44)
[2019-01-04] MEDS: cloNIDine 0.1 MG TAB PO SCH (20:44)
[2019-01-04] MEDS: Acetaminophen 500 MG TAB PO PRN (23:18)
[2019-01-05 05:10] LABS: #Lymphocytes 1.2 thou/uL (1.20-3.40); #Neutrophils 8.2 thou/uL (1.40-6.50); %Basophils 0.2 % (0.0-1.0); %Lymphocytes 11.3 % (21.0-51.0); %Monocytes 9.2 % (0.0-10.0); %Neutrophils 79.3 % (42.0-75.0); Hemoglobin 7.4 g/dL (12.0-16.0); Mean Corpuscular HGB CONC 30.9 g/dL (32.0-36.0); Mean Corpuscular Hemoglobin 27.5 pg (27.0-31.0); Mean Corpuscular Volume 88.9 fL (78.0-98.0); Mean Platelet Volume 5.9 fL (7.4-10.4); Platelet Count 343 thou/uL (130-400); Red Blood Cell (RBC) Count 2.69 mill/uL (4.20-5.40); White Blood Cell (WBC) Count 10.3 thou/uL (4.8-10.8)
[2019-01-05 05:26] LABS: Anion Gap 17 mmol/L (10-20); BUN (Urea Nitrogen) 50 mg/dL (9.8-20.1); Calc. Creatinine Clearance 14 mL/min (70-130); Calcium 8.8 mg/dL (7.8-10.44); Carbon Dioxide 27 mmol/L (23-31); Chloride 94 mmol/L (98-107); Estimated GFR-MDRD 11; Glucose 134 mg/dL (80-115); Potassium 4.2 mmol/L (3.5-5.1); Sodium 134 mmol/L (136-145)
[2019-01-05] MEDS: hydrALAZINE 25 MG TAB PO SCH ×3 (08:30→20:57)
[2019-01-05] MEDS: Acetaminophen 500 MG TAB PO PRN ×2 (08:30→18:17)
[2019-01-05] MEDS: Polyethylene Glycol 3350 17 GM Packet PO SCH (08:30)
[2019-01-05] MEDS: Allopurinol 100 MG TAB PO SCH (08:30)
[2019-01-05] MEDS: cloNIDine 0.1 MG TAB PO SCH ×2 (08:31→20:57)
[2019-01-05] MEDS: Famotidine 20 MG TAB PO SCH (08:31)
[2019-01-05] MEDS: Aspirin 81 mg Enteric Coated Tablet PO SCH (08:31)
[2019-01-05] MEDS ORDERED: predniSONE 20 MG TAB PO SCH (09:00)
--- NOTE | 2019-01-05 16:11 | HP ---
PRINCIPAL DIAGNOSES: 1. Recurrent paroxysmal atrial fibrillation with rapid ventricular response. 2. End-stage renal disease, just started on hemodialysis. 3. Hypertension. 4. Coronary artery disease with negative nuclear stress test. 5. Flare-up of gout. 6. Long-standing history of noncompliance. HISTORY OF PRESENT ILLNESS: This is a pleasant 68-year-old female, who was recently admitted to [place] after being diagnosed with end-stage renal disease, at which point she refused hemodialysis. She even refused dialysis access placement. She was transferred here for therapy. I had a long discussion with her and explained to her that therapy is not going to do her any good without getting her immediate problem fixed, which is her end-stage renal disease. She finally changed her mind and agreed for dialysis access placement, so was transferred up the road to [place], where she had both an AV fistula placed for future use and hemodialysis catheter placed in the right subclavian and was admitted to the hospital and underwent treatment. After a couple of dialysis treatments, she was sent back here for therapy. Here, she had an episode of chest pain, which did not resolve with nitroglycerin and it was persistent and she became hypotensive, so was sent to the ER and then transferred up the road to [place]. She underwent a nuclear stress test, which was negative. Serial enzymes were negative. She was sent back here for therapy. The next night, she had an episode of chest pain and shortness of breath and EKG showed atrial fibrillation. She was started on Cardizem, and the next morning, she was back in sinus rhythm. She continued to work with therapy and progressed enough to the point that she was deemed stable for discharge to home. While at home, she apparently developed significant multiarticular pain as well as weakness and so was taken to the ER as she also missed dialysis. In the ER, she was found to be in atrial fibrillation with RVR and possible polyarticular gout. She was treated with Cardizem IV and converted back to sinus rhythm. She was started on IV steroids and switched over to p.o. prednisone and allopurinol has been started. She was felt to be a candidate again for inpatient rehabilitation and transferred here. Currently, she is resting comfortably and denies any complaints. She walked in the hallways with therapy. She would like to go home on and I advised her that she can do that on Monday. No family at bedside. No other concerns or questions. PAST MEDICAL HISTORY: 1. End-stage renal disease. 2. Anemia of chronic kidney disease. 3. Paroxysmal atrial fibrillation. 4. Polyarticular gout. 5. Hypertension. 6. History of noncompliance. 7. History of coronary artery disease, but recent nuclear stress test was negative. PAST SURGICAL HISTORY: 1. Recent AV fistula placement. 2. Temporary dialysis access catheter placement. 3. Hysterectomy. 4. Tubal ligation. 5. Bilateral cataract extraction. 6. ALLERGIES: LISINOPRIL AND TRAMADOL. FAMILY HISTORY: Positive for colon cancer in her father. Mother had heart disease and breast cancer. PSYCHOSOCIAL HISTORY: No tobacco, alcohol, or IV drug abuse. MEDICATIONS: She has been transferred here on the following medications: 1. Tylenol 500 q.6 p.r.n. 2. Allopurinol 100 mg daily. 3. Ecotrin 81 mg daily. 4. Clonidine 0.1 mg b.i.d. 5. Cardizem 30 mg p.o. t.i.d. 6. Pepcid 20 mg daily. 7. Hydralazine 50 mg t.i.d. 8. Toprol-XL 25 mg daily. 9. Prednisone 20 mg daily, which is a tapering dose. 10. MiraLAX 17 g in 8 ounces of water daily. REVIEW OF SYSTEMS: CARDIOVASCULAR SYSTEM: Denies any chest pain, shortness of breath, palpitations, PND, orthopnea, or pedal edema. RESPIRATORY SYSTEM: Denies any chronic cough, expectoration, or pleuritic type chest pain. GASTROINTESTINAL SYSTEM: Denies any nausea, vomiting, diarrhea, constipation, hematemesis, melena, or hematochezia. GENITOURINARY SYSTEM: Denies any frequency, urgency, dysuria, or hematuria. CENTRAL NERVOUS SYSTEM: No focal numbness, weakness, or fainting spells. PHYSICAL EXAMINATION: GENERAL: A very pleasant 68-year-old female, in no apparent distress. She responds appropriate to questions. VITAL SIGNS: She is afebrile. Heart rate 80, respirations 20, oxygen saturation 94% on room air, and blood pressure is 136/60. HEENT: Normocephalic and atraumatic. Pupils equal and reactive to light and accommodation. NECK: No JVD, thyromegaly, cervical lymphadenopathy, or throat exudates. No carotid bruits. CARDIOVASCULAR SYSTEM: S1 and S2 plus. Rate and rhythm are regular. RESPIRATORY SYSTEM: Normal vesicular breath sounds heard in all lung castañeda. ABDOMEN: Soft and nontender. Bowel sounds heard in all quadrants. EXTREMITIES: Without cyanosis or clubbing. Peripheral pulses are palpable. CENTRAL NERVOUS SYSTEM: AAO x3. Cranial nerves 2 through 12 intact. Generalized weakness. LABORATORY DATA: Her white count is 10.3, H and H is 7.4 and 23.9. Sodium 134, potassium 4.2, BUN and creatinine 15 and 4.63. CRP on the was 30.04. Troponins were negative. IMPRESSION: 1. Polyarticular gout. 2. End-stage renal disease, on hemodialysis. 3. Hypertension. 4. Anemia of chronic disease. 5. Coronary artery disease with negative nuclear stress test. 6. Paroxysmal atrial fibrillation. PLAN: 1. Continue discharge medications. 2. Heart healthy renal diet. 3. Hemodialysis on Monday, Monday, and Monday. 4. Continue allopurinol and taper prednisone. 5. PT/OT eval and treat. 6. DVT prophylaxis with PlexiPulses. 7. Decubitus precautions. 8. Routine laboratory values. 9. Discussed with the patient in detail. All questions answered. Job ID: [id number]
[2019-01-06] MEDS: cloNIDine 0.1 MG TAB PO SCH ×2 (08:37→20:44)
[2019-01-06] MEDS: hydrALAZINE 25 MG TAB PO SCH ×3 (08:37→20:44)
[2019-01-06] MEDS: Acetaminophen 500 MG TAB PO PRN (08:37)
[2019-01-06] MEDS: Allopurinol 100 MG TAB PO SCH (08:37)
[2019-01-06] MEDS: predniSONE 20 MG TAB PO SCH (08:37)
[2019-01-06] MEDS: Famotidine 20 MG TAB PO SCH (08:37)
[2019-01-06] MEDS: Aspirin 81 mg Enteric Coated Tablet PO SCH (08:37)
[2019-01-06] MEDS: Polyethylene Glycol 3350 17 GM Packet PO SCH (08:38)
[2019-01-07] MEDS: hydrALAZINE 25 MG TAB PO SCH ×3 (08:50→21:18)
[2019-01-07] MEDS: cloNIDine 0.1 MG TAB PO SCH ×2 (08:51→21:18)
[2019-01-07] MEDS: Famotidine 20 MG TAB PO SCH (08:55)
[2019-01-07] MEDS: Allopurinol 100 MG TAB PO SCH (08:56)
[2019-01-07] MEDS: Aspirin 81 mg Enteric Coated Tablet PO SCH (08:56)
[2019-01-07] MEDS: predniSONE 20 MG TAB PO SCH (08:56)
[2019-01-07] MEDS: Polyethylene Glycol 3350 17 GM Packet PO SCH (08:58)
[2019-01-07] MEDS: Acetaminophen 500 MG TAB PO PRN (10:11)
[2019-01-07 12:49] VITALS: BMI 26.8
[2019-01-08] MEDS: Famotidine 20 MG TAB PO SCH (08:09)
[2019-01-08] MEDS: Polyethylene Glycol 3350 17 GM Packet PO SCH (08:09)
[2019-01-08] MEDS: predniSONE 5 MG TAB PO SCH (08:09)
[2019-01-08] MEDS: hydrALAZINE 25 MG TAB PO SCH ×3 (08:09→20:43)
[2019-01-08] MEDS: Aspirin 81 mg Enteric Coated Tablet PO SCH (08:10)
[2019-01-08] MEDS: cloNIDine 0.1 MG TAB PO SCH ×2 (08:10→20:43)
[2019-01-08] MEDS: Allopurinol 100 MG TAB PO SCH (08:10)
--- NOTE | 2019-01-08 11:35 | PRG ---
DATE OF SERVICE: 01/08/2019 SUBJECTIVE: Ms. Skaggs is doing well. Denies any complaints. Tolerating her dialysis. Getting stronger with therapy. Gout pain is improving. Discussed with nursing. OBJECTIVE: VITAL SIGNS: She is afebrile. Heart rate 72, respirations 18, oxygen saturation 92%, blood pressure 154/70. CARDIOVASCULAR SYSTEM: S1, S2 plus. RESPIRATORY SYSTEM: Normal vesicular breath sounds. ABDOMEN: Soft, nontender. Bowel sounds heard in all quadrants. EXTREMITIES: Without cyanosis or clubbing. CENTRAL NERVOUS SYSTEM: Awake and responsive. Cranial nerves 2 through 12 intact. IMPRESSION: 1. Hypertension. 2. Coronary artery disease with negative nuclear stress test. 3. Gout. 4. End-stage renal disease, on hemodialysis. 5. Recurrent paroxysmal atrial fibrillation, now in sinus rhythm. PLAN: 1. Continue current medications. 2. Hemodialysis. 3. Heart healthy diet. 4. DVT and stress ulcer prophylaxis. 5. Decubitus precautions. 6. Routine laboratory values. Job ID: [id number]
[2019-01-09] MEDS: predniSONE 5 MG TAB PO SCH (08:27)
[2019-01-09] MEDS: cloNIDine 0.1 MG TAB PO SCH (08:27)
[2019-01-09] MEDS: hydrALAZINE 25 MG TAB PO SCH ×2 (08:27→15:29)
[2019-01-09] MEDS: Famotidine 20 MG TAB PO SCH (08:27)
[2019-01-09] MEDS: Aspirin 81 mg Enteric Coated Tablet PO SCH (08:28)
[2019-01-09] MEDS: Allopurinol 100 MG TAB PO SCH (08:28)
[2019-01-09] MEDS: Acetaminophen 500 MG TAB PO PRN (08:28)
[2019-01-09] MEDS: Polyethylene Glycol 3350 17 GM Packet PO SCH (08:36)
[2019-01-10] MEDS: hydrALAZINE 25 MG TAB PO SCH ×4 (08:44→20:53)
[2019-01-10] MEDS: cloNIDine 0.1 MG TAB PO SCH ×3 (08:44→20:52)
[2019-01-10] MEDS: Acetaminophen 500 MG TAB PO PRN ×3 (09:37→20:51)
[2019-01-10] MEDS: Aspirin 81 mg Enteric Coated Tablet PO SCH (09:37)
[2019-01-10] MEDS: Famotidine 20 MG TAB PO SCH (09:37)
[2019-01-10] MEDS: Allopurinol 100 MG TAB PO SCH (09:37)
[2019-01-10] MEDS: Polyethylene Glycol 3350 17 GM Packet PO SCH (09:38)
[2019-01-11] MEDS: hydrALAZINE 25 MG TAB PO SCH ×3 (08:52→20:47)
[2019-01-11] MEDS: Allopurinol 100 MG TAB PO SCH (08:53)
[2019-01-11] MEDS: Famotidine 20 MG TAB PO SCH (08:53)
[2019-01-11] MEDS: Aspirin 81 mg Enteric Coated Tablet PO SCH (08:53)
[2019-01-11] MEDS: cloNIDine 0.1 MG TAB PO SCH (08:58)
[2019-01-11] MEDS: Polyethylene Glycol 3350 17 GM Packet PO SCH (08:59)
[2019-01-11] MEDS: Acetaminophen 500 MG TAB PO PRN (18:22)
[2019-01-11] MEDS: Nitroglycerin 0.4 MG TAB 1 EACH SL PRN (22:01)
[2019-01-12] MEDS: Famotidine 20 MG TAB PO SCH (09:09)
[2019-01-12] MEDS: Allopurinol 100 MG TAB PO SCH (09:09)
[2019-01-12] MEDS: Aspirin 81 mg Enteric Coated Tablet PO SCH (09:09)
[2019-01-12] MEDS: hydrALAZINE 25 MG TAB PO SCH ×3 (09:09→20:56)
[2019-01-12] MEDS: Acetaminophen 500 MG TAB PO PRN ×2 (09:10→20:56)
[2019-01-12] MEDS: Polyethylene Glycol 3350 17 GM Packet PO SCH (09:13)
--- NOTE | 2019-01-12 21:53 | PRG ---
DATE OF SERVICE: 01/12/[address] Louise Raymond. SUBJECTIVE: The patient feels well, sleeping well now. Did have an episode of chest pain yesterday when she refused her Cardizem, but EKG showed only normal sinus rhythm and her symptoms resolved when she was given her medication and one nitroglycerin. OBJECTIVE: VITAL SIGNS: This time shows her blood pressure is 141/68, temperature is 99.2, pulse 85, respirations 20, O2 sats 97% on room air. LUNGS: Clear. CARDIAC: Showed regular rhythm. ABDOMEN: Soft and nontender. SKIN/EXTREMITIES: Show no edema, clubbing, cyanosis. LABORATORY DATA: Show BUN 50, creatinine 4.63 on dialysis. White count is 10,300. ASSESSMENT: 1. Labile hypertension, controlled when the patient is compliant to diet. 2. Chest pain with coronary artery disease with recent negative nuclear stress test, controlled when the patient is compliant to medication. 3. Gout, asymptomatic. 4. End-stage renal disease on hemodialysis. 5. Recurrent paroxysmal atrial fibrillation, in sinus rhythm. PLAN: 1. Continue stress compliance to diltiazem. 2. Continue dialysis three times weekly. 3. Continue PT and OT. 4. Continue DVT and stress ulcer prophylaxis. Job ID: [id number]
[2019-01-13] MEDS: Allopurinol 100 MG TAB PO SCH (09:33)
[2019-01-13] MEDS: hydrALAZINE 25 MG TAB PO SCH ×3 (09:37→20:33)
[2019-01-13] MEDS: Aspirin 81 mg Enteric Coated Tablet PO SCH (09:37)
[2019-01-13] MEDS: Famotidine 20 MG TAB PO SCH (09:37)
[2019-01-13] MEDS: Polyethylene Glycol 3350 17 GM Packet PO SCH (09:39)
[2019-01-13] MEDS ORDERED: Ondansetron ODT 4 MG TAB SL PRN (14:02)
[2019-01-13] MEDS: clonazePAM 0.5 MG TAB PO PRN (20:34)
[2019-01-14] MEDS: Acetaminophen 500 MG TAB PO PRN ×3 (06:44→20:35)
[2019-01-14] MEDS: Famotidine 20 MG TAB PO SCH (08:07)
[2019-01-14] MEDS: Aspirin 81 mg Enteric Coated Tablet PO SCH (08:07)
[2019-01-14] MEDS: Allopurinol 100 MG TAB PO SCH (08:07)
[2019-01-14] MEDS: hydrALAZINE 25 MG TAB PO SCH ×3 (08:07→20:35)
--- NOTE | 2019-01-14 09:37 | PRG ---
DATE OF SERVICE: 01/13/2019 SUBJECTIVE: The patient feels well except for some anxiety, which is relieved by Klonopin, has taken her Cardizem regular, but is still having some elevated blood pressure with no chest pain or shortness of breath today. She has had a negative stress test within the last month and has had occasional chest pain when her blood pressure is elevated. OBJECTIVE: VITAL SIGNS: Show blood pressure is 145/66, temperature is 98, pulse 79, respirations 18, O2 sats 96% on room air. LUNGS: Clear. CARDIAC: Showed regular rhythm. ABDOMEN: Soft and nontender. SKIN/EXTREMITIES: Show healing fistula. No evidence of recurrent gout. ASSESSMENT: 1. Stable hypertension. 2. Coronary artery disease with recent negative stress test. 3. Gout with no evidence of exacerbation. 4. End-stage renal disease, on hemodialysis, tolerating well. 5. Paroxysmal atrial fibrillation, now in sinus rhythm. Now, the patient is compliant with diltiazem. PLAN: 1. Continue hemodialysis 3 times weekly. 2. Continue PT/OT. 3. Continue Klonopin for anxiety. 4. Continue to stress compliance to antihypertensive. 5. Continue DVT and stress ulcer prophylaxis. Job ID: [id number]
[2019-01-14] MEDS: Polyethylene Glycol 3350 17 GM Packet PO SCH (09:53)
[2019-01-14] MEDS: clonazePAM 0.5 MG TAB PO PRN (20:35)
[2019-01-15] MEDS: Acetaminophen 500 MG TAB PO PRN ×2 (08:10→20:40)
[2019-01-15] MEDS: Allopurinol 100 MG TAB PO SCH (08:13)
[2019-01-15] MEDS: Famotidine 20 MG TAB PO SCH (08:13)
[2019-01-15] MEDS: hydrALAZINE 25 MG TAB PO SCH ×3 (08:14→20:40)
[2019-01-15] MEDS: Aspirin 81 mg Enteric Coated Tablet PO SCH (08:14)
[2019-01-15] MEDS: Polyethylene Glycol 3350 17 GM Packet PO SCH (10:02)
[2019-01-15] MEDS: clonazePAM 0.5 MG TAB PO PRN ×2 (13:13→20:40)
[2019-01-15] MEDS ORDERED: Colchicine 0.6 MG TAB PO SCH (16:15)
--- NOTE | 2019-01-15 18:24 | PRG ---
DATE OF SERVICE: 01/14/2019 SUBJECTIVE: The patient lying in the bed, feeling well after taking Klonopin as she has become very anxious. She is having some problems with compliance to medication, but appears to be improved over the last several days. OBJECTIVE: VITAL SIGNS: Show her temperature 98.7, pulse 78, respirations 16, O2 sats 96% on room air, blood pressure 139/65. LUNGS: Clear. CARDIAC: Showed regular rhythm. ABDOMEN: Soft and nontender. ASSESSMENT: 1. Stable end-stage renal disease, initiating hemodialysis 3 times weekly. 2. Persistent anxiety, requiring occasional Klonopin for control. 3. Chest pain with negative stress test last month. 4. Noncompliance to medication and stress need to comply. 5. Paroxysmal atrial fibrillation, in sinus rhythm with compliant to diltiazem. PLAN: Continue hemodialysis 3 times weekly. Continue PT, OT. Continue Klonopin for anxiety. Continue DVT and stress ulcer prophylaxis. Continue to stress compliance to med, specifically antihypertensive, diltiazem. Job ID: [id number]
--- NOTE | 2019-01-15 19:13 | RAD ---
Chest 2 views HISTORY: Cough. COMPARISON: 01/02/2019. FINDINGS: Cardiac silhouette is magnified and upper limits of normal in size. Pulmonary vasculature u pper limits of normal. Mediastinum is midline. No confluent airspace consolidation, pneumothorax, or pleural fluid. Right internal jugular dialysis catheter is in place. IMPRESSION: Chronic findings of end-stage renal disease. No active cardiopulmonary abnormalities are demonstrated.
[2019-01-15 20:36] LABS: #Basophils 0.1 thou/uL (0.0-0.2); #Eosinphils 0.1 thou/uL (0.0-0.7); #Lymphocytes 1.6 thou/uL (1.20-3.40); #Monocytes 1.4 thou/uL (0.11-0.59); #Neutrophils 8.7 thou/uL (1.40-6.50); %Basophils 1.1 % (0.0-1.0); %Eosinophils 0.7 % (0.0-10.0); %Lymphocytes 13.1 % (21.0-51.0); %Monocytes 11.4 % (0.0-10.0); %Neutrophils 73.7 % (42.0-75.0); Mean Corpuscular HGB CONC 29.2 g/dL (32.0-36.0); Mean Corpuscular Hemoglobin 27.4 pg (27.0-31.0); Mean Platelet Volume 6.3 fL (7.4-10.4); Platelet Count 325 thou/uL (130-400); RBC Distribution Width 17.6 % (11.5-14.5); Red Blood Cell (RBC) Count 2.56 mill/uL (4.20-5.40); White Blood Cell (WBC) Count 11.8 thou/uL (4.8-10.8)
[2019-01-15 20:51] LABS: ALT (SGPT) 9 U/L (8-55); AST (SGOT) 9 U/L (5-34); Albumin 3.4 g/dL (3.4-4.8); Alkaline Phosphatase 55 U/L (40-150); Anion Gap 18 mmol/L (10-20); BUN (Urea Nitrogen) 27 mg/dL (9.8-20.1); Bilirubin, Total 0.3 mg/dL (0.2-1.2); Calc. Creatinine Clearance 11 mL/min (70-130); Calcium 9.4 mg/dL (7.8-10.44); Carbon Dioxide 24 mmol/L (23-31); Chloride 96 mmol/L (98-107); Estimated GFR-MDRD 9; Glucose 88 mg/dL (80-115); Potassium 4.1 mmol/L (3.5-5.1); Protein, Total 6.4 g/dL (6.0-8.3); Sodium 134 mmol/L (136-145)
--- NOTE | 2019-01-16 07:13 | PRG ---
DATE OF SERVICE: 01/15/[address] Louise Raymond. SUBJECTIVE: The patient is complaining of diffuse myalgias, soreness, and arthralgias, not responded to Tylenol and/or tramadol. Not having any fever or chills. States she does have some mild cough, but no nausea, vomiting, or chest pain. OBJECTIVE: VITAL SIGNS: Show her blood pressure is 154/67, temperature is 99.6, pulse 87, respirations 18, and O2 sats 98% on room air. LUNGS: Clear. CARDIAC: Showed regular rhythm. ABDOMEN: Soft and nontender. LABORATORY DATA: Shows white count 11,800, hematocrit 24, and hemoglobin 7. Sodium 134, potassium 4.1, chloride 96, bicarb 24, BUN 27, and creatinine 5.6. AST 9 and ALT 9. ASSESSMENT: 1. Diffuse myalgias and arthralgias, possibly due to anxiety. No evidence of acute inflammation or ischemia. 2. End-stage renal disease, tolerating hemodialysis well. 3. Anxiety, recurrent and improved however with Klonopin 0.5 twice daily. We will continue. 4. Recurrent chest pain with negative stress test last month. PLAN: 1. Continue dialysis. 2. Continue PT/OT. 3. Continue diltiazem to control atrial fibrillation, now in sinus rhythm. 4. Continue hemodialysis 3 times weekly. Job ID: [id number]
[2019-01-16] MEDS: hydrALAZINE 25 MG TAB PO SCH ×3 (12:27→20:57)
[2019-01-16] MEDS: Aspirin 81 mg Enteric Coated Tablet PO SCH (12:27)
[2019-01-16] MEDS: Allopurinol 100 MG TAB PO SCH (12:27)
[2019-01-16] MEDS: Polyethylene Glycol 3350 17 GM Packet PO SCH (12:27)
[2019-01-16] MEDS: Famotidine 20 MG TAB PO SCH (12:27)
[2019-01-16] MEDS: Acetaminophen 500 MG TAB PO PRN (17:14)
[2019-01-16] MEDS: clonazePAM 0.5 MG TAB PO PRN (20:57)
--- NOTE | 2019-01-16 21:02 | PRG ---
DATE OF SERVICE: 01/16/2019 SUBJECTIVE: The patient lying in bed, resting well, asking when she can be discharged home. She has slept well and has had no further pain since been started on Klonopin. OBJECTIVE: VITAL SIGNS: Shows her blood pressure is 141/65, temperature 97.4, pulse 98, respirations 18, and O2 sats 98% on room air. LUNGS: Clear. CARDIAC: Showed regular rhythm. ABDOMEN: Soft and nontender. LABORATORY DATA: Laboratory show white count 11,800, hematocrit 24, hemoglobin 7. Sodium 134, potassium 4.1, chloride 96, bicarb 24, BUN 27, and creatinine 5.6. ASSESSMENT: 1. Stable end-stage renal disease, tolerating dialysis well. 2. Recurrent chest pain with negative coronary stress test. 3. Paroxysmal atrial fibrillation, controlled now in sinus rhythm with diltiazem. 4. Hypertension, controlled to goal. 5. Significant anxiety, improved on Klonopin 0.5 twice daily. PLAN: 1. Discuss discharge planning with Physical Therapy and Occupational Therapy. 2. Continue Klonopin 0.5 twice daily. 3. Continue hemodialysis 3 times weekly. 4. Continued to stress compliance to diltiazem to control hypertension and atrial fibrillation. Job ID: [id number]
[2019-01-17] MEDS: Allopurinol 100 MG TAB PO SCH (09:22)
[2019-01-17] MEDS: hydrALAZINE 25 MG TAB PO SCH ×3 (09:22→21:50)
[2019-01-17] MEDS: Famotidine 20 MG TAB PO SCH (09:22)
[2019-01-17] MEDS: Aspirin 81 mg Enteric Coated Tablet PO SCH (09:23)
[2019-01-17] MEDS: Polyethylene Glycol 3350 17 GM Packet PO SCH ×2 (09:25→14:54)
[2019-01-17] MEDS: clonazePAM 0.5 MG TAB PO PRN (21:50)
--- NOTE | 2019-01-18 07:34 | PRG ---
DATE OF SERVICE: 01/17/2019 SUBJECTIVE: The patient lying in the bed after having a therapy today, feels well with no chest pain, shortness of breath, myalgias, and states that she feels that her anxiety has greatly improved, and in fact, she is asking, when she can be discharged home. OBJECTIVE: VITAL SIGNS: Shows her blood pressure is 164/72, temperature is 99, pulse 80, respirations 18, and O2 sats 99% on room air. Physical therapy states that the patient is walking 460 feet with a standby assistance follow-through. LUNGS: Clear. CARDIAC: Showed regular rhythm. ABDOMEN: Soft and nontender. SKIN/EXTREMITIES: Play no edema, clubbing, or cyanosis. Well healed fistula. ASSESSMENT: 1. Stable end-stage renal disease, tolerating dialysis well. 2. Significant anxiety, improved greatly on Klonopin 0.5 twice daily. 3. No further recurrent chest pain with a negative stress test. 4. Paroxysmal atrial fibrillation, now in sinus rhythm with compliance to diltiazem. 5. Hypertension with inadequate control. PLAN: 1. Discuss discharge planning with Physical Therapy, Family, and Case Management. 2. Increase diltiazem to 60 mg three times daily. 3. Continue dialysis three times weekly. 4. Continue anxiety treatment. Job ID: [id number]
[2019-01-18] MEDS: clonazePAM 0.5 MG TAB PO PRN (08:44)
[2019-01-18] MEDS: Allopurinol 100 MG TAB PO SCH (08:44)
[2019-01-18] MEDS: Acetaminophen 500 MG TAB PO PRN ×2 (08:44→18:22)
[2019-01-18] MEDS: Aspirin 81 mg Enteric Coated Tablet PO SCH (08:45)
[2019-01-18] MEDS: hydrALAZINE 25 MG TAB PO SCH ×3 (08:46→20:45)
[2019-01-18] MEDS: Famotidine 20 MG TAB PO SCH (08:46)
[2019-01-18] MEDS: Polyethylene Glycol 3350 17 GM Packet PO SCH (08:46)
[2019-01-18] MEDS: Nitroglycerin 0.4 MG TAB 1 EACH SL PRN (23:25)
[2019-01-19 07:32] VITALS: BP 165/74; TEMP 98.6
[2019-01-19] MEDS: Acetaminophen 500 MG TAB PO PRN (08:08)
[2019-01-19] MEDS: clonazePAM 0.5 MG TAB PO PRN (08:08)
[2019-01-19] MEDS: Allopurinol 100 MG TAB PO SCH (08:08)
[2019-01-19] MEDS: hydrALAZINE 25 MG TAB PO SCH (08:08)
[2019-01-19] MEDS: Aspirin 81 mg Enteric Coated Tablet PO SCH (08:09)
[2019-01-19] MEDS: Famotidine 20 MG TAB PO SCH (08:09)
[2019-01-19] MEDS: Polyethylene Glycol 3350 17 GM Packet PO SCH (08:09)
--- NOTE | 2019-01-20 04:42 | DIS ---
DATE OF ADMISSION: 01/04/2019 DATE OF DISCHARGE: 01/19/2019 HISTORY OF PRESENT ILLNESS: Ms. Skaggs is a very pleasant, 68-year-old black female, who had end-stage renal disease. She got dialysis access, was transferred here for physical therapy and occupational therapy. She has actually done very well and is ready for discharge. She did have chest pain, which after evaluation showed that she had some atrial fibrillation. She was started on Cardizem and converted to sinus rhythm. SUBJECTIVE: The patient states she is doing very well and is ready for discharge. We are waiting on transfer recommendations for her dialysis. Arrangements have been made. PHYSICAL EXAMINATION: GENERAL: Reveals a well-developed, well-nourished, very pleasant, black female, in no apparent distress at this time. HEENT: Normocephalic and nontraumatic cranium. Pupils are equal, round, and reactive. Extraocular movements are intact. Nose and throat are slightly dry. NECK: Supple without masses, nodes, or bruits. CHEST: Clear to auscultation. No rales, rhonchi, wheezes, or cough is noted. HEART: Reveals a regular rate and rhythm and normal sinus at this time. ABDOMEN: Soft and nontender without organomegaly. Normal bowel sounds are noted. No rebound or guarding is noted. : Deferred. EXTREMITIES: Reveal no clubbing, cyanosis, or edema. DISCHARGE MEDICATIONS: Reveal the patient will be discharged on the following medications; 1. Cardizem 60 mg three times a day. 2. Hydralazine 100 mg three times a day. 3. Metoprolol succinate 25 mg once a day. 4. Allopurinol 100 mg once a day. 5. Lactulose p.r.n. constipation. 6. Nitroglycerin p.r.n. chest pain. 7. Tylenol p.r.n. pain. 8. Aspirin 81 mg daily. 9. Famotidine 20 mg if the patient has indigestion and she will get that [id number]. 10. MiraLAX and/or dulcolax p.r.n. constipation. ASSESSMENT: 1. End-stage renal disease, on hemodialysis. 2. Renal anemia. 3. Paroxysmal atrial fibrillation, presently in sinus rhythm. 4. Gout. 5. Hypertension. 6. Coronary artery disease. 7. History of noncompliance. PLAN: 1. The patient is to be discharged. 2. I have written out her prescriptions for her medications. 3. The patient will remain on a renal diet. 4. The patient will have dialysis on Monday, Monday, and Monday, and transportation arrangements have been made. 5. The patient will follow up with her primary care physician at [facility] in the next 1 to 2 weeks. Job ID: [id number]
== END 2019-01-19 12:01 | disposition home or self-care (01) | DRG 682 ==
LOC: NAV ACUTE 18:41
PROVIDERS: ADMIT Internal Medicine; ATTEND Internal Medicine
DX: I12.0 Hypertensive chronic kidney disease with stage 5 chronic kidney disease or end stage renal disease (principal); N18.6 End stage renal disease; I48.0 Paroxysmal atrial fibrillation; I25.10 Atherosclerotic heart disease of native coronary artery without angina pectoris; M10.9 Gout, unspecified; F41.9 Anxiety disorder, unspecified; R07.9 Chest pain, unspecified; D63.1 Anemia in chronic kidney disease; M79.10 Myalgia, unspecified site; M25.50 Pain in unspecified joint; Z91.19 Patient's noncompliance with other medical treatment and regimen; Z90.710 Acquired absence of both cervix and uterus; Z98.41 Cataract extraction status, right eye; Z98.42 Cataract extraction status, left eye; Z88.8 Allergy status to other drugs, medicaments and biological substances; Z91.14 Patient's other noncompliance with medication regimen
CPT/HCPCS: 36415; 71046; 80048; 80053; 85025; J7512; Q0162

== ENCOUNTER 2019-01-20 22:31 | Emergency (ER) | payer MEDICARE, OTHER ==
[2019-01-20 22:59] LABS: #Basophils 0.1 thou/uL (0.0-0.2); #Eosinphils 0.2 thou/uL (0.0-0.7); #Lymphocytes 1.6 thou/uL (1.20-3.40); #Monocytes 0.8 thou/uL (0.11-0.59); #Neutrophils 3.4 thou/uL (1.40-6.50); %Eosinophils 2.6 % (0.0-10.0); %Lymphocytes 26.7 % (21.0-51.0); %Neutrophils 56.8 % (42.0-75.0); Hemoglobin 7.6 g/dL (12.0-16.0); Mean Corpuscular HGB CONC 29.7 g/dL (32.0-36.0); Mean Corpuscular Hemoglobin 27.3 pg (27.0-31.0); Mean Corpuscular Volume 91.7 fL (78.0-98.0); Mean Platelet Volume 5.3 fL (7.4-10.4); Platelet Count 343 thou/uL (130-400); RBC Distribution Width 16.8 % (11.5-14.5); Red Blood Cell (RBC) Count 2.79 mill/uL (4.20-5.40); White Blood Cell (WBC) Count 6.1 thou/uL (4.8-10.8)
[2019-01-20 23:16] LABS: ALT (SGPT) 10 U/L (8-55); AST (SGOT) 17 U/L (5-34); Alkaline Phosphatase 67 U/L (40-150); Anion Gap 21 mmol/L (10-20); BUN (Urea Nitrogen) 35 mg/dL (9.8-20.1); Bilirubin, Total 0.5 mg/dL (0.2-1.2); CK (CPK) 93 U/L (29-168); Calc. Creatinine Clearance 0 mL/min (70-130); Calcium 10.6 mg/dL (7.8-10.44); Carbon Dioxide 24 mmol/L (23-31); Chloride 98 mmol/L (98-107); Estimated GFR-MDRD 8; Globulin 3.8 g/dL (2.4-3.5); Glucose 86 mg/dL (80-115); Potassium 3.7 mmol/L (3.5-5.1); Protein, Total 7.8 g/dL (6.0-8.3); Sodium 139 mmol/L (136-145)
[2019-01-20] MEDS ORDERED: Lorazepam 2 MG/ML VIAL ONE (23:48)
--- NOTE | 2019-01-20 23:59 | RAD ---
EXAM: Chest one view: HISTORY: Shortness of breath COMPARISON: 01/15/2019 FINDINGS: Right venous access catheter. Heart size: Cardiomegaly with bilateral vascular congestion. Lungs: No confluent pneumonia. No evidence for pneumonia, pleural effusion, acute edema, or pneumothorax, or other significant acute process. IMPRESSION: Cardiomegaly with stable vascular congestion.
== END 2019-01-21 00:30 | disposition home or self-care (01) ==
LOC: NAV ERS 22:31
DX: F41.9 Anxiety disorder, unspecified (principal); I25.10 Atherosclerotic heart disease of native coronary artery without angina pectoris; M10.9 Gout, unspecified; I12.0 Hypertensive chronic kidney disease with stage 5 chronic kidney disease or end stage renal disease; N18.6 End stage renal disease; Z99.2 Dependence on renal dialysis; F32.9 Major depressive disorder, single episode, unspecified; F17.220 Nicotine dependence, chewing tobacco, uncomplicated; Z79.899 Other long term (current) drug therapy; Z79.82 Long term (current) use of aspirin
CPT/HCPCS: 71045; 80053; 82550; 83880; 84484; 85025; 93005; 96374; J2060

== ENCOUNTER 2019-05-28 14:57 | Emergency (ER) | payer MEDICARE, OTHER ==
--- NOTE | 2019-05-28 15:50 | RAD ---
PORTABLE CHEST ONE VIEW: 05/28/2019 3:20 p.m. HISTORY: Shortness of breath. COMPARISON: FINDINGS: The heart is enlarged. The aorta is tortuous. There is mild pulmonary vascular congestion. No lobar c onsolidation, pneumothoraces or large effusions are seen. POS: TPC
[2019-05-28 15:51] LABS: ALT (SGPT) 13 U/L (8-55); AST (SGOT) 14 U/L (5-34); Albumin 4.1 g/dL (3.4-4.8); Alkaline Phosphatase 103 U/L (40-110); Anion Gap 19 mmol/L (10-20); BUN (Urea Nitrogen) 29 mg/dL (9.8-20.1); Bilirubin, Total 0.5 mg/dL (0.2-1.2); Calc. Creatinine Clearance 0 mL/min (70-130); Calcium 10.2 mg/dL (7.8-10.44); Carbon Dioxide 26 mmol/L (23-31); Chloride 97 mmol/L (98-107); Estimated GFR-MDRD 13; Globulin 3.4 g/dL (2.4-3.5); Glucose 124 mg/dL (80-115); Potassium 4.1 mmol/L (3.5-5.1); Protein, Total 7.5 g/dL (6.0-8.3); Sodium 138 mmol/L (136-145)
[2019-05-28 15:53] LABS: #Eosinphils 0.4 thou/uL (0.0-0.7); #Lymphocytes 1.2 thou/uL (1.20-3.40); #Monocytes 0.3 thou/uL (0.11-0.59); %Basophils 0.9 % (0.0-1.0); %Lymphocytes 24.5 % (21.0-51.0); %Monocytes 6.7 % (0.0-10.0); %Neutrophils 59.9 % (42.0-75.0); Mean Corpuscular HGB CONC 30.9 g/dL (32.0-36.0); Mean Corpuscular Hemoglobin 27.7 pg (27.0-31.0); Mean Corpuscular Volume 89.6 fL (78.0-98.0); Mean Platelet Volume 8.5 fL (7.4-10.4); Platelet Count 320 thou/uL (130-400); RBC Distribution Width 18.5 % (11.5-14.5); Red Blood Cell (RBC) Count 4.34 mill/uL (4.20-5.40); White Blood Cell (WBC) Count 4.9 thou/uL (4.8-10.8)
== END 2019-05-28 16:40 | disposition home or self-care (01) ==
LOC: NAV ERS 14:57
DX: I12.0 Hypertensive chronic kidney disease with stage 5 chronic kidney disease or end stage renal disease (principal); E11.22 Type 2 diabetes mellitus with diabetic chronic kidney disease; N18.6 End stage renal disease; F43.9 Reaction to severe stress, unspecified; R06.00 Dyspnea, unspecified; M10.9 Gout, unspecified; F32.9 Major depressive disorder, single episode, unspecified; F41.9 Anxiety disorder, unspecified; I25.10 Atherosclerotic heart disease of native coronary artery without angina pectoris; Z99.2 Dependence on renal dialysis; F17.220 Nicotine dependence, chewing tobacco, uncomplicated; Z79.82 Long term (current) use of aspirin; Z79.899 Other long term (current) drug therapy
CPT/HCPCS: 36415; 71045; 80053; 83880; 84484; 85025; 93005

== ENCOUNTER 2019-06-13 15:44 | Emergency (ER) | payer MEDICARE, OTHER ==
--- NOTE | 2019-06-13 17:17 | RAD ---
Exam: Chest 2 views: HISTORY: Cough and congestion COMPARISON: 06/02/2019 FINDINGS: Cardiomegaly with bilateral vascular congestion and minimal left pleural effusion. No confluent pneum onia. Anterior left chest implantable device. IMPRESSION: Cardiomegaly with bilateral vascular congestion and small left pleural effusion, slightly worse conge stion and effusion from the prior study.
[2019-06-13 18:00] LABS: #Basophils 0.1 thou/uL (0.0-0.2); #Eosinphils 0.4 thou/uL (0.0-0.7); #Lymphocytes 1.2 thou/uL (1.20-3.40); #Monocytes 0.7 thou/uL (0.11-0.59); #Neutrophils 5.5 thou/uL (1.40-6.50); %Basophils 1.3 % (0.0-1.0); %Eosinophils 4.6 % (0.0-10.0); %Lymphocytes 15.6 % (21.0-51.0); %Monocytes 8.9 % (0.0-10.0); %Neutrophils 69.6 % (42.0-75.0); Hemoglobin 10.3 g/dL (12.0-16.0); Mean Corpuscular HGB CONC 29.6 g/dL (32.0-36.0); Mean Corpuscular Hemoglobin 27.2 pg (27.0-31.0); Mean Platelet Volume 8.1 fL (7.4-10.4); Platelet Count 254 thou/uL (130-400); RBC Distribution Width 18.2 % (11.5-14.5); White Blood Cell (WBC) Count 7.9 thou/uL (4.8-10.8)
[2019-06-13 18:14] LABS: ALT (SGPT) 14 U/L (8-55); AST (SGOT) 17 U/L (5-34); Albumin 4.2 g/dL (3.4-4.8); Alkaline Phosphatase 103 U/L (40-110); Anion Gap 19 mmol/L (10-20); BUN (Urea Nitrogen) 20 mg/dL (9.8-20.1); Bilirubin, Total 0.5 mg/dL (0.2-1.2); Calc. Creatinine Clearance 0 mL/min (70-130); Calcium 10.4 mg/dL (7.8-10.44); Carbon Dioxide 25 mmol/L (23-31); Chloride 99 mmol/L (98-107); Estimated GFR-MDRD 13; Globulin 3.3 g/dL (2.4-3.5); Glucose 73 mg/dL (80-115); Potassium 3.8 mmol/L (3.5-5.1); Protein, Total 7.5 g/dL (6.0-8.3); Sodium 139 mmol/L (136-145)
[2019-06-13] MEDS ORDERED: Oseltamivir 6 MG/ML ORAL SUSP ONE (19:01)
[2019-06-13] MEDS ORDERED: Azithromycin 250 MG TAB ONE (19:03)
== END 2019-06-13 19:07 | disposition home or self-care (01) ==
LOC: NAV ERS 15:44
DX: J90 Pleural effusion, not elsewhere classified (principal); I12.0 Hypertensive chronic kidney disease with stage 5 chronic kidney disease or end stage renal disease; N18.6 End stage renal disease; M10.9 Gout, unspecified; I25.10 Atherosclerotic heart disease of native coronary artery without angina pectoris; E11.22 Type 2 diabetes mellitus with diabetic chronic kidney disease; F41.9 Anxiety disorder, unspecified; F32.9 Major depressive disorder, single episode, unspecified; F17.220 Nicotine dependence, chewing tobacco, uncomplicated; Z79.899 Other long term (current) drug therapy; Z79.82 Long term (current) use of aspirin; Z99.2 Dependence on renal dialysis
CPT/HCPCS: 71046; 80053; 83605; 85025; 87804

== ENCOUNTER 2019-09-12 10:59 | Emergency (ER) | payer MEDICARE, OTHER ==
[2019-09-12 12:26] LABS: Hemoglobin 10.5 g/dL (12.0-16.0); Mean Corpuscular HGB CONC 30.7 g/dL (32.0-36.0); Mean Corpuscular Hemoglobin 28.4 pg (27.0-31.0); Mean Corpuscular Volume 92.2 fL (78.0-98.0); Platelet Count 241 thou/uL (130-400); RBC Distribution Width 16.3 % (11.5-14.5); Red Blood Cell (RBC) Count 3.69 mill/uL (4.20-5.40); White Blood Cell (WBC) Count 4.8 thou/uL (4.8-10.8)
[2019-09-12 12:27] LABS: MDiff Complete? YES
[2019-09-12 12:28] LABS: ALT (SGPT) 13 U/L (8-55); AST (SGOT) 17 U/L (5-34); Albumin 4.1 g/dL (3.4-4.8); Alkaline Phosphatase 120 U/L (40-110); Anion Gap 18 mmol/L (10-20); Anisocytosis SLIGHT = 6-15 cells (100X) (0-5/hpf); BUN (Urea Nitrogen) 23 mg/dL (9.8-20.1); Bilirubin, Total 0.6 mg/dL (0.2-1.2); Calc. Creatinine Clearance 0 mL/min (70-130); Calcium 10.5 mg/dL (7.8-10.44); Carbon Dioxide 26 mmol/L (23-31); Chloride 98 mmol/L (98-107); Estimated GFR-MDRD 14; Globulin 3.2 g/dL (2.4-3.5); Glucose 75 mg/dL (80-115); Hypochromia SLIGHT = 6-15 cells (100X) (0-5/hpf); Lymphocytes 27 % (21-51); Magnesium 1.9 mg/dL (1.6-2.6); Monocytes 5 % (0-10); Neutrophil 68 % (42-75); Platelet Morphology Comment Appears Adequate; Potassium 3.8 mmol/L (3.5-5.1); Protein, Total 7.3 g/dL (6.0-8.3); Sodium 138 mmol/L (136-145)
--- NOTE | 2019-09-12 12:34 | RAD ---
PORTABLE CHEST: Date: 09/12/2019 HISTORY: Dyspnea. COMPARISON: 06/02/2019 exam. FINDINGS: Heart size is enlarged. Pulmonary vessels are engorged. There are some increased parahilar lung juan ngs. This finding is a fairly stable appearance as compared to the prior examination. IMPRESSION: Cardiomegaly with pulmonary vascular engorgement suggesting element of pulmonary edema. Changes are a ctually fairly similar to the previous studies. POS: TPC
== END 2019-09-12 13:48 | disposition short-term general hospital (02) ==
LOC: NAV ERS 10:59
DX: I13.2 Hypertensive heart and chronic kidney disease with heart failure and with stage 5 chronic kidney disease, or end stage renal disease (principal); I50.33 Acute on chronic diastolic (congestive) heart failure; N18.6 End stage renal disease; M10.9 Gout, unspecified; E87.70 Fluid overload, unspecified; F41.9 Anxiety disorder, unspecified; F32.9 Major depressive disorder, single episode, unspecified; Z79.82 Long term (current) use of aspirin; F17.220 Nicotine dependence, chewing tobacco, uncomplicated; Z79.899 Other long term (current) drug therapy; Z87.01 Personal history of pneumonia (recurrent)
CPT/HCPCS: 71045; 80053; 83735; 83880; 84484; 85025; 93005; 94760

== ENCOUNTER 2019-11-24 17:57 | Emergency (ER) | payer MEDICARE, MEDICAID, OTHER ==
[2019-11-24 18:37] LABS: #Eosinphils 0.2 thou/uL (0.0-0.7); #Lymphocytes 1.1 thou/uL (1.20-3.40); #Monocytes 0.4 thou/uL (0.11-0.59); #Neutrophils 3.2 thou/uL (1.40-6.50); %Basophils 0.5 % (0.0-1.0); %Eosinophils 3.4 % (0.0-10.0); %Lymphocytes 22.6 % (21.0-51.0); %Monocytes 7.5 % (0.0-10.0); %Neutrophils 66.1 % (42.0-75.0); Hemoglobin 11.1 g/dL (12.0-16.0); Mean Corpuscular HGB CONC 31.5 g/dL (32.0-36.0); Mean Corpuscular Hemoglobin 31.1 pg (27.0-31.0); Mean Corpuscular Volume 98.7 fL (78.0-98.0); Mean Platelet Volume 8.2 fL (7.4-10.4); Platelet Count 213 thou/uL (130-400); RBC Distribution Width 16.4 % (11.5-14.5); Red Blood Cell (RBC) Count 3.57 mill/uL (4.20-5.40); White Blood Cell (WBC) Count 4.9 thou/uL (4.8-10.8)
[2019-11-24 18:58] LABS: ALT (SGPT) 19 U/L (8-55); AST (SGOT) 20 U/L (5-34); Albumin 4.3 g/dL (3.4-4.8); Alkaline Phosphatase 114 U/L (40-110); Anion Gap 20 mmol/L (10-20); BUN (Urea Nitrogen) 89 mg/dL (9.8-20.1); Calc. Creatinine Clearance 0 mL/min (70-130); Calcium 10.4 mg/dL (7.8-10.44); Carbon Dioxide 17 mmol/L (23-31); Chloride 106 mmol/L (98-107); Estimated GFR-MDRD 6; Globulin 2.9 g/dL (2.4-3.5); Glucose 75 mg/dL (80-115); Potassium 5.8 mmol/L (3.5-5.1); Protein, Total 7.2 g/dL (6.0-8.3); Sodium 137 mmol/L (136-145)
[2019-11-24 19:37] LABS: Bilirubin, Total 0.6 mg/dL (0.2-1.2)
== END 2019-11-24 20:57 | disposition short-term general hospital (02) ==
LOC: NAV ERS 17:57
DX: E87.5 Hyperkalemia (principal); I13.2 Hypertensive heart and chronic kidney disease with heart failure and with stage 5 chronic kidney disease, or end stage renal disease; I50.9 Heart failure, unspecified; N18.6 End stage renal disease; M10.9 Gout, unspecified; F41.9 Anxiety disorder, unspecified; F32.9 Major depressive disorder, single episode, unspecified; Z79.899 Other long term (current) drug therapy; Z87.01 Personal history of pneumonia (recurrent); Z79.82 Long term (current) use of aspirin
CPT/HCPCS: 80053; 85025; 93005

== ENCOUNTER 2019-12-29 00:22 | Emergency (ER) | payer MEDICARE, OTHER ==
[2019-12-29] MEDS ORDERED: Acetaminophen 500 MG TAB ONE (01:21)
[2019-12-29 01:27] LABS: ALT (SGPT) 13 U/L (8-55); AST (SGOT) 19 U/L (5-34); Albumin 4.6 g/dL (3.4-4.8); Alkaline Phosphatase 96 U/L (40-110); Anion Gap 20 mmol/L (10-20); BUN (Urea Nitrogen) 51 mg/dL (9.8-20.1); Bilirubin, Total 0.5 mg/dL (0.2-1.2); Calc. Creatinine Clearance 0 mL/min (70-130); Calcium 10.7 mg/dL (7.8-10.44); Carbon Dioxide 24 mmol/L (23-31); Chloride 100 mmol/L (98-107); Estimated GFR-MDRD 9; Globulin 3.8 g/dL (2.4-3.5); Glucose 83 mg/dL (80-115); Potassium 4.4 mmol/L (3.5-5.1); Protein, Total 8.4 g/dL (6.0-8.3); Sodium 140 mmol/L (136-145)
[2019-12-29 01:39] LABS: Eosinophils 6 % (0-10); Hemoglobin 12.6 g/dL (12.0-16.0); Lymphocytes 32 % (21-51); MDiff Complete? YES; Mean Corpuscular HGB CONC 29.7 g/dL (32.0-36.0); Mean Corpuscular Hemoglobin 29.6 pg (27.0-31.0); Mean Corpuscular Volume 99.6 fL (78.0-98.0); Mean Platelet Volume 8.1 fL (7.4-10.4); Monocytes 7 % (0-10); Neutrophil 55 % (42-75); Platelet Count 232 thou/uL (130-400); Platelet Morphology Comment Appears Adequate; RBC Distribution Width 15.9 % (11.5-14.5); RBC Morphology Normal; Red Blood Cell (RBC) Count 4.25 mill/uL (4.20-5.40); White Blood Cell (WBC) Count 5.8 thou/uL (4.8-10.8)
== END 2019-12-29 01:55 | disposition home or self-care (01) ==
LOC: NAV ERS 00:22
DX: I13.2 Hypertensive heart and chronic kidney disease with heart failure and with stage 5 chronic kidney disease, or end stage renal disease (principal); I50.9 Heart failure, unspecified; N18.6 End stage renal disease; R53.1 Weakness; R51 Headache; M10.9 Gout, unspecified; F41.9 Anxiety disorder, unspecified; F17.220 Nicotine dependence, chewing tobacco, uncomplicated; F32.9 Major depressive disorder, single episode, unspecified; Z79.899 Other long term (current) drug therapy; Z79.82 Long term (current) use of aspirin; Z87.01 Personal history of pneumonia (recurrent)
CPT/HCPCS: 36416; 80053; 85025; 99284; 36415-59

== ENCOUNTER 2020-02-11 16:01 | Emergency (ER) | payer MEDICARE, OTHER ==
[2020-02-12 14:29] LABS: SARS-CoV-2 MS2 Positive; SARS-CoV-2 N Gene Negative; SARS-CoV-2 S Gene Negative; SARS-CoV-2 orf1ab Negative
== END 2020-02-11 16:53 | disposition home or self-care (01) ==
LOC: NAV ERS 16:01
DX: R09.81 Nasal congestion (principal); Z20.828 Contact with and (suspected) exposure to other viral communicable diseases; I13.2 Hypertensive heart and chronic kidney disease with heart failure and with stage 5 chronic kidney disease, or end stage renal disease; I50.9 Heart failure, unspecified; N18.6 End stage renal disease; F41.9 Anxiety disorder, unspecified; F17.220 Nicotine dependence, chewing tobacco, uncomplicated; Z79.899 Other long term (current) drug therapy
CPT/HCPCS: 87635; 99283; U0003

== ENCOUNTER 2020-03-07 10:23 | Emergency (ER) | payer MEDICARE, OTHER ==
[2020-03-07 11:21] LABS: #Basophils 0.1 thou/uL (0.0-0.2); #Eosinphils 0.1 thou/uL (0.0-0.7); #Lymphocytes 0.9 thou/uL (1.20-3.40); #Monocytes 0.3 thou/uL (0.11-0.59); %Eosinophils 2.3 % (0.0-10.0); %Lymphocytes 17.2 % (21.0-51.0); %Neutrophils 73.6 % (42.0-75.0); Hemoglobin 11.3 g/dL (12.0-16.0); Mean Corpuscular HGB CONC 31.9 g/dL (32.0-36.0); Mean Corpuscular Hemoglobin 30.2 pg (27.0-31.0); Mean Corpuscular Volume 94.7 fL (78.0-98.0); Mean Platelet Volume 9.6 fL (7.4-10.4); Platelet Count 147 thou/uL (130-400); RBC Distribution Width 12.7 % (11.5-14.5); Red Blood Cell (RBC) Count 3.74 mill/uL (4.20-5.40); White Blood Cell (WBC) Count 5.5 thou/uL (4.8-10.8)
--- NOTE | 2020-03-07 11:25 | RAD ---
CHEST 1 VIEW: Date: 03/07/2020 HISTORY: Dyspnea. COMPARISON: 02/20/2020. FINDINGS: Cardiomegaly with some stable bilateral congestion. No confluent pneumonia. Slight costophrenic angle blunting. IMPRESSION: Overall stable exam with cardiomegaly and stable bilateral vascular congestion. No confluent pneumoni a. POS: OFF
[2020-03-07 11:29] LABS: ALT (SGPT) 17 U/L (8-55); AST (SGOT) 25 U/L (5-34); Albumin 4.3 g/dL (3.4-4.8); Anion Gap 21 mmol/L (10-20); BUN (Urea Nitrogen) 64 mg/dL (9.8-20.1); Bilirubin, Total 0.6 mg/dL (0.2-1.2); CK (CPK) 332 U/L (29-168); Calc. Creatinine Clearance 0 mL/min (70-130); Carbon Dioxide 20 mmol/L (23-31); Chloride 105 mmol/L (98-107); Estimated GFR-MDRD 6; Globulin 3.5 g/dL (2.4-3.5); Glucose 90 mg/dL (80-115); Protein, Total 7.8 g/dL (6.0-8.3); Sodium 139 mmol/L (136-145)
[2020-03-07 11:33] LABS: Alkaline Phosphatase 64 U/L (40-110); Potassium 7.1 mmol/L (3.5-5.1)
[2020-03-07] MEDS ORDERED: Dextrose 50% Abboject 50 ML SYRINGE ONE ×2 (11:47→12:54)
[2020-03-07] MEDS ORDERED: Calcium Gluc 4.6 MEQ/10 ML (100 MG/ML) ONE (11:47)
[2020-03-07] MEDS ORDERED: Insulin Regular 300 UNITS/3 ML VIAL ONE (11:47)
== END 2020-03-07 13:00 | disposition short-term general hospital (02) ==
LOC: NAV ERS 10:23
DX: I13.2 Hypertensive heart and chronic kidney disease with heart failure and with stage 5 chronic kidney disease, or end stage renal disease (principal); I50.9 Heart failure, unspecified; E87.5 Hyperkalemia; N18.6 End stage renal disease; F32.9 Major depressive disorder, single episode, unspecified; F41.9 Anxiety disorder, unspecified; F17.220 Nicotine dependence, chewing tobacco, uncomplicated; M10.9 Gout, unspecified; Z79.82 Long term (current) use of aspirin; Z99.2 Dependence on renal dialysis; Z79.899 Other long term (current) drug therapy
CPT/HCPCS: 36416; 71045; 80053; 82550; 83880; 84484; 85025; 93005; 96374; 96375; 96376; J1815

== ENCOUNTER 2020-07-13 15:26 | Emergency (ER) | payer MEDICARE, OTHER | END 2020-07-13 16:20 | disposition home or self-care (01) | LOC: NAV ERS 15:26 | DX: K04.4 Acute apical periodontitis of pulpal origin (principal); I13.2 Hypertensive heart and chronic kidney disease with heart failure and with stage 5 chronic kidney disease, or end stage renal disease; I50.9 Heart failure, unspecified; N18.6 End stage renal disease; Z99.2 Dependence on renal dialysis; M10.9 Gout, unspecified; F17.220 Nicotine dependence, chewing tobacco, uncomplicated; Z87.01 Personal history of pneumonia (recurrent); Z79.899 Other long term (current) drug therapy; Z79.82 Long term (current) use of aspirin | CPT/HCPCS: 99282 ==

== ENCOUNTER 2020-07-31 16:34 | Emergency (ER) | payer MEDICARE, OTHER | END 2020-07-31 17:07 | disposition home or self-care (01) | LOC: NAV ERS 16:34 | DX: K02.9 Dental caries, unspecified (principal); I13.2 Hypertensive heart and chronic kidney disease with heart failure and with stage 5 chronic kidney disease, or end stage renal disease; I11.0 Hypertensive heart disease with heart failure; I50.9 Heart failure, unspecified; N18.6 End stage renal disease; M10.9 Gout, unspecified; F17.220 Nicotine dependence, chewing tobacco, uncomplicated; Z79.82 Long term (current) use of aspirin; Z79.51 Long term (current) use of inhaled steroids; Z79.899 Other long term (current) drug therapy | CPT/HCPCS: 99282 ==

== ENCOUNTER 2021-02-17 15:42 | Emergency (ER) | payer MEDICARE, OTHER ==
[2021-02-17] MEDS ORDERED: Lidocaine 1% (PF) 30 ML VIAL ONE (16:49)
[2021-02-17] MEDS ORDERED: Azithromycin 250 MG TAB ONE (16:49)
[2021-02-17] MEDS ORDERED: cefTRIAXone\\ROCEPHIN 1 GM VIAL ONE (16:49)
[2021-02-17] MEDS ORDERED: Dexamethasone 20 MG/5 ML VIAL ONE (16:49)
[2021-02-17] MEDS ORDERED: Ondansetron ODT 4 MG TAB ONE (17:38)
[2021-02-18 12:04] LABS: SARS-CoV-2 PCR by NAA DETECTED (NotDetected)
== END 2021-02-17 17:50 | disposition home or self-care (01) ==
LOC: NAV ERS 15:42
DX: U07.1 COVID-19 (principal); J12.89 Other viral pneumonia; I13.2 Hypertensive heart and chronic kidney disease with heart failure and with stage 5 chronic kidney disease, or end stage renal disease; N18.6 End stage renal disease; M10.9 Gout, unspecified; I50.9 Heart failure, unspecified; F17.220 Nicotine dependence, chewing tobacco, uncomplicated; Z79.899 Other long term (current) drug therapy
CPT/HCPCS: 71045; U0003; U0005; 96372; J0696; J1100; J2001; Q0162

== ENCOUNTER 2021-02-28 00:02 | Emergency (ER) | payer MEDICARE, OTHER ==
[2021-02-28 01:04] LABS: Bilirubin Small (Negative); Blood, Urine Negative (Negative); Clarity Clear (Clear); Glucose, Urine (Dipstick) Negative (Negative); Ketone, Urine Trace mg/dL (Negative); Leukocyte Negative (Negative); Nitrite Negative (Negative); Protein, Urine (Dipstick) > or equal to 300 mg/dL (Neg-Trace); Specific Gravity, Urine 1.025 (1.005-1.030); Urobilinogen 0.2 mg/dL (Less than 2); pH, Urine 5.5 (5.0-9.0)
[2021-02-28 01:05] LABS: RBC/HPF None Seen HPF (0-3)
[2021-02-28 01:08] LABS: Bacteria/HPF Rare-Few HPF (None Seen)
[2021-02-28 01:09] LABS: Broad Cast 0-3 LPF (None Seen)
[2021-02-28] MEDS ORDERED: Phenazopyridine HCl 97.5 MG TABLET ONE (01:42)
[2021-02-28] MEDS ORDERED: Cephalexin 250 MG CAP ONE (01:42)
[2021-02-28] MEDS ORDERED: Naproxen 500 MG TAB ONE (01:42)
== END 2021-02-28 01:55 | disposition home or self-care (01) ==
LOC: NAV ERS 00:02
DX: N39.0 Urinary tract infection, site not specified (principal); I13.2 Hypertensive heart and chronic kidney disease with heart failure and with stage 5 chronic kidney disease, or end stage renal disease; N18.6 End stage renal disease; I50.9 Heart failure, unspecified; F17.220 Nicotine dependence, chewing tobacco, uncomplicated; Z99.2 Dependence on renal dialysis; Z79.899 Other long term (current) drug therapy
CPT/HCPCS: 81003; 81015; 87086; 99283

== ENCOUNTER 2021-03-26 07:35 | Emergency (ER) | payer MEDICARE, OTHER ==
[2021-03-26 08:28] LABS: Hemoglobin 10.2 g/dL (12.0-16.0); Mean Corpuscular HGB CONC 29.8 g/dL (32.0-36.0); Mean Corpuscular Hemoglobin 29.2 pg (27.0-31.0); Mean Corpuscular Volume 98.3 fL (78.0-98.0); Mean Platelet Volume 8.5 fL (7.4-10.4); Platelet Count 231 thou/uL (130-400); RBC Distribution Width 14.1 % (11.5-14.5); Red Blood Cell (RBC) Count 3.48 mill/uL (4.20-5.40); White Blood Cell (WBC) Count 5.4 thou/uL (4.8-10.8)
[2021-03-26] MEDS ORDERED: Acetaminophen 500 MG TAB ONE (08:33)
[2021-03-26] MEDS ORDERED: hydrALAZINE 20 MG/ML VIAL ONE (08:33)
[2021-03-26 08:45] LABS: ALT (SGPT) 9 U/L (8-55); AST (SGOT) 16 U/L (5-34); Albumin 3.8 g/dL (3.4-4.8); Alkaline Phosphatase 74 U/L (40-110); Anion Gap 18 mmol/L (10-20); BUN (Urea Nitrogen) 45 mg/dL (9.8-20.1); Bilirubin, Total 0.7 mg/dL (0.2-1.2); Calc. Creatinine Clearance 0 mL/min (70-130); Carbon Dioxide 28 mmol/L (23-31); Chloride 99 mmol/L (98-107); Globulin 3.9 g/dL (2.4-3.5); Glucose 74 mg/dL (80-115); Protein, Total 7.7 g/dL (5.8-8.1); Sodium 141 mmol/L (136-145)
[2021-03-26] MEDS ORDERED: Metoclopramide HCl 10 MG/2 ML VIAL ONE ×2 (10:21→11:35)
[2021-03-26] MEDS ORDERED: Sodium Chloride 0.9% 100 ML ONE ×2 (10:21→11:36)
[2021-03-26] MEDS ORDERED: diphenhydrAMINE 50 MG/ML VIAL ONE (10:21)
[2021-03-26] MEDS ORDERED: hydrALAZINE 25 MG TAB PO SCH (14:30)
== END 2021-03-26 14:30 | disposition home or self-care (01) ==
LOC: NAV ERS 07:35
DX: I13.2 Hypertensive heart and chronic kidney disease with heart failure and with stage 5 chronic kidney disease, or end stage renal disease (principal); I50.9 Heart failure, unspecified; N18.6 End stage renal disease; R51.9 Headache, unspecified; M10.9 Gout, unspecified; Z87.01 Personal history of pneumonia (recurrent); Z99.2 Dependence on renal dialysis; Z79.82 Long term (current) use of aspirin; Z79.899 Other long term (current) drug therapy; Z79.1 Long term (current) use of non-steroidal anti-inflammatories (NSAID)
CPT/HCPCS: 36415; 70450; 71045; 71046; 80053; 83880; 85025; 96365; 96366; 96375; J0360; J1200; J2765

== ENCOUNTER 2021-03-30 19:38 | Emergency (ER) | payer MEDICARE, MEDICAID | END 2021-03-30 20:33 | disposition home or self-care (01) | LOC: NAV ERS 19:38 | DX: S63.501A Unspecified sprain of right wrist, initial encounter (principal); S00.83XA Contusion of other part of head, initial encounter; I13.2 Hypertensive heart and chronic kidney disease with heart failure and with stage 5 chronic kidney disease, or end stage renal disease; I50.9 Heart failure, unspecified; N18.6 End stage renal disease; F17.220 Nicotine dependence, chewing tobacco, uncomplicated; Z99.2 Dependence on renal dialysis; Z79.01 Long term (current) use of anticoagulants; Z79.82 Long term (current) use of aspirin; Z79.899 Other long term (current) drug therapy; W01.0XXA Fall on same level from slipping, tripping and stumbling without subsequent striking against object, initial encounter ==

== ENCOUNTER 2021-03-30 22:51 | Emergency (ER) | payer MEDICARE, MEDICAID ==
[2021-03-31] MEDS ORDERED: hydrALAZINE 20 MG/ML VIAL ONE (00:21)
== END 2021-03-31 02:25 | disposition home or self-care (01) ==
LOC: NAV ERS 22:51
DX: I13.2 Hypertensive heart and chronic kidney disease with heart failure and with stage 5 chronic kidney disease, or end stage renal disease (principal); I50.9 Heart failure, unspecified; N18.6 End stage renal disease; M10.9 Gout, unspecified; F17.220 Nicotine dependence, chewing tobacco, uncomplicated; Z99.2 Dependence on renal dialysis; Z87.01 Personal history of pneumonia (recurrent); Z86.16 Personal history of COVID-19; Z79.82 Long term (current) use of aspirin; Z79.01 Long term (current) use of anticoagulants; Z79.899 Other long term (current) drug therapy
CPT/HCPCS: 93005; 96374; 96375; 96376; J0360

== ENCOUNTER 2021-07-19 13:56 | Emergency (ER) | payer MEDICARE, OTHER ==
[2021-07-19 14:45] LABS: #Basophils 0.1 thou/uL (0.0-0.2); #Eosinphils 0.2 thou/uL (0.0-0.7); #Monocytes 0.4 thou/uL (0.11-0.59); #Neutrophils 1.9 thou/uL (1.40-6.50); %Basophils 1.6 % (0.0-1.0); %Lymphocytes 27.3 % (21.0-51.0); %Monocytes 11.5 % (0.0-10.0); %Neutrophils 54.5 % (42.0-75.0); Mean Corpuscular HGB CONC 30.4 g/dL (32.0-36.0); Mean Corpuscular Hemoglobin 30.1 pg (27.0-31.0); Mean Corpuscular Volume 98.9 fL (78.0-98.0); Mean Platelet Volume 8.3 fL (7.4-10.4); Platelet Count 225 thou/uL (130-400); RBC Distribution Width 15.6 % (11.5-14.5); Red Blood Cell (RBC) Count 4.33 mill/uL (4.20-5.40); White Blood Cell (WBC) Count 3.5 thou/uL (4.8-10.8)
[2021-07-19] MEDS ORDERED: Ondansetron ODT 4 MG TAB ONE (16:05)
[2021-07-19] MEDS ORDERED: HYDROcodone/Acetaminophen 5/325 mg Tablet ONE (16:07)
[2021-07-19] MEDS ORDERED: Nitroglycerin 2% Ointment 1 INCH/1 GM Packet ONE ×2 (16:08→19:18)
[2021-07-19] MEDS ORDERED: Mag-Al Plus 1200 MG/1200 MG/120 MG/30 ML UDCUP ONE (16:08)
[2021-07-19 16:34] LABS: ALT (SGPT) 13 U/L (8-55); AST (SGOT) 16 U/L (5-34); Albumin 4.1 g/dL (3.4-4.8); Alkaline Phosphatase 94 U/L (40-110); Anion Gap 18 mmol/L (10-20); BUN (Urea Nitrogen) 47 mg/dL (9.8-20.1); Bilirubin, Total 0.6 mg/dL (0.2-1.2); Calc. Creatinine Clearance 0 mL/min (70-130); Calcium 10.4 mg/dL (7.8-10.44); Carbon Dioxide 26 mmol/L (23-31); Chloride 100 mmol/L (98-107); Glucose 87 mg/dL (80-115); Protein, Total 8.1 g/dL (5.8-8.1); Sodium 139 mmol/L (136-145)
[2021-07-19 18:41] LABS: Troponin I 0.013 ng/mL (< 0.028)
[2021-07-19] MEDS ORDERED: Morphine 4 MG/ML VIAL ONE ×2 (19:17→23:30)
[2021-07-19 20:30] LABS: SARS-CoV-2 NAA Rapid Test Not Detected (NotDetected)
[2021-07-19] MEDS ORDERED: hydrALAZINE 25 MG TAB PO SCH (21:00)
[2021-07-19] MEDS ORDERED: Rosuvastatin 10 MG TAB PO SCH (21:00)
[2021-07-19] MEDS ORDERED: Dronedarone HCl 400 MG TAB PO SCH (21:00)
[2021-07-19] MEDS ORDERED: Apixaban 2.5 MG TAB PO SCH (21:00)
[2021-07-19 23:56] LABS: Troponin I Less than 0.010 ng/mL (< 0.028)
[2021-07-20] MEDS ORDERED: Apixaban 2.5 MG TAB PO SCH (01:15)
[2021-07-20] MEDS ORDERED: Allopurinol 100 MG TAB PO SCH ×2 (01:15→09:00)
[2021-07-20] MEDS ORDERED: Dronedarone HCl 400 MG TAB PO SCH (01:15)
[2021-07-20] MEDS ORDERED: hydrALAZINE 25 MG TAB PO SCH (01:15)
[2021-07-20] MEDS ORDERED: Rosuvastatin 10 MG TAB PO SCH (01:15)
[2021-07-20] MEDS ORDERED: Nitroglycerin 2% Ointment 1 INCH/1 GM Packet ONE (05:49)
[2021-07-20] MEDS ORDERED: Megestrol Acetate 40 MG TAB PO SCH (09:00)
[2021-07-20] MEDS ORDERED: Loratadine 10 MG TAB ONE (12:14)
== END 2021-07-20 12:20 | disposition home or self-care (01) ==
LOC: NAV ERS 13:56
DX: I13.0 Hypertensive heart and chronic kidney disease with heart failure and stage 1 through stage 4 chronic kidney disease, or unspecified chronic kidney disease (principal); N18.9 Chronic kidney disease, unspecified; R07.9 Chest pain, unspecified; Z99.2 Dependence on renal dialysis; Z20.822 Contact with and (suspected) exposure to COVID-19; I50.9 Heart failure, unspecified; M10.9 Gout, unspecified; Z86.16 Personal history of COVID-19; F17.220 Nicotine dependence, chewing tobacco, uncomplicated; Z79.82 Long term (current) use of aspirin; Z79.01 Long term (current) use of anticoagulants; Z79.899 Other long term (current) drug therapy
CPT/HCPCS: 36415; 71045; 80053; 83880; 84484; 85025; 93005; 94760; 96374; 96376; J2270; Q0162; U0002

== ENCOUNTER 2022-09-27 18:36 | Emergency (ER) | payer OTHER ==
[2022-09-27] MEDS ORDERED: Nitroglycerin 2% Ointment 1 INCH/1 GM Packet ONE (19:24)
[2022-09-27] MEDS ORDERED: Aspirin Chewable 81 MG TAB ONE (19:24)
[2022-09-27 19:53] LABS: Hemoglobin 12.2 g/dL (12.0-16.0); MDiff Complete? YES; Manual Diff?? YES; Mean Corpuscular HGB CONC 30.9 g/dL (32.0-36.0); Mean Corpuscular Hemoglobin 29.7 pg (27.0-31.0); Mean Corpuscular Volume 96.2 fl (78.0-98.0); Mean Platelet Volume 10.2 fL (7.4-10.4); Platelet Count 178 10x3/uL (130-400); RBC Distribution Width 17.2 % (11.5-14.5); Red Blood Cell (RBC) Count 4.09 mill/uL (4.20-5.40); White Blood Cell (WBC) Count 4.8 10x3/uL (4.8-10.8)
[2022-09-27 20:03] LABS: Band 1 % (5-11); Eosinophils 5 % (0-10); Lymphocytes 22 % (21-51); Monocytes 4 % (0-10); Neutrophil 66 % (42-75); Reactive Lymphocytes 2 % (0-10)
[2022-09-27 20:04] LABS: Anisocytosis SLIGHT = 6-15 cells (100X) (0-5/hpf); Elliptocytes SLIGHT = 2-5 cells (100X) (0-1/hpf); Target Cells SLIGHT = 2-5 cells (100X) (0-1/hpf); Tear Drops SLIGHT = 2-5 cells (100X) (0-1/hpf)
[2022-09-27 20:05] LABS: Burr Cells SLIGHT = 2-5 cells (100X) (0-1/hpf); Toxic Granulation SLIGHT; Vacuoles SLIGHT
[2022-09-27 20:06] LABS: Platelet Morphology Comment Appears Adequate
[2022-09-27 20:12] LABS: ALT (SGPT) 13 U/L (8-55); AST (SGOT) 37 U/L (5-34); Albumin 4.2 g/dL (3.4-4.8); Alkaline Phosphatase 78 U/L (40-110); Anion Gap 25 mmol/L (10-20); BUN (Urea Nitrogen) 66 mg/dL (9.8-20.1); Bilirubin, Total 0.6 mg/dL (0.2-1.2); Calc. Creatinine Clearance 0 mL/min (70-130); Calcium 9.5 mg/dL (7.8-10.44); Carbon Dioxide 22 mmol/L (23-31); Chloride 97 mmol/L (98-107); Estimated GFR 6; Glucose 72 mg/dL (80-115); Lipase 51 U/L (8-78); Protein, Total 8.2 g/dL (5.8-8.1); Sodium 138 mmol/L (136-145)
[2022-09-27 21:12] LABS: Potassium 5.6 mmol/L (3.5-5.1)
== END 2022-09-27 23:47 | disposition short-term general hospital (02) ==
LOC: NAV ERS 18:36
DX: R07.9 Chest pain, unspecified (principal); E87.5 Hyperkalemia; I13.2 Hypertensive heart and chronic kidney disease with heart failure and with stage 5 chronic kidney disease, or end stage renal disease; I50.9 Heart failure, unspecified; N18.6 End stage renal disease; F17.220 Nicotine dependence, chewing tobacco, uncomplicated; Z99.2 Dependence on renal dialysis; M10.9 Gout, unspecified; Z79.01 Long term (current) use of anticoagulants; Z79.899 Other long term (current) drug therapy; Z79.82 Long term (current) use of aspirin
CPT/HCPCS: 36415; 71045; 80053; 83690; 84484; 85025; 93005

== ENCOUNTER 2022-10-20 13:35 | Emergency (ER) | payer OTHER ==
[2022-10-20 14:44] LABS: #Basophils 0.1 thou/uL (0.0-0.2); #Eosinphils 0.1 thou/uL (0.0-0.7); #Lymphocytes 0.8 thou/uL (1.20-3.40); #Monocytes 0.4 thou/uL (0.11-0.59); #Neutrophils 2.9 thou/uL (1.40-6.50); %Basophils 1.4 % (0.0-1.0); %Eosinophils 2.4 % (0.0-10.0); %Lymphocytes 19.5 % (21.0-51.0); %Neutrophils 67.6 % (42.0-75.0); Hemoglobin 10.7 g/dL (12.0-16.0); Mean Corpuscular HGB CONC 30.1 g/dL (32.0-36.0); Mean Corpuscular Hemoglobin 28.6 pg (27.0-31.0); Mean Corpuscular Volume 95.1 fl (78.0-98.0); Mean Platelet Volume 8.4 fL (7.4-10.4); Platelet Count 146 10x3/uL (130-400); RBC Distribution Width 16.8 % (11.5-14.5); Red Blood Cell (RBC) Count 3.75 mill/uL (4.20-5.40); White Blood Cell (WBC) Count 4.2 10x3/uL (4.8-10.8)
[2022-10-20 14:51] LABS: Anion Gap 22 mmol/L (10-20); BUN (Urea Nitrogen) 48 mg/dL (9.8-20.1); Calc. Creatinine Clearance 0 mL/min (70-130); Calcium 9.6 mg/dL (7.8-10.44); Carbon Dioxide 23 mmol/L (23-31); Chloride 101 mmol/L (98-107); Estimated GFR 7; Glucose 68 mg/dL (80-115); Sodium 142 mmol/L (136-145)
== END 2022-10-20 15:30 | disposition home or self-care (01) ==
LOC: NAV ERS 13:35
DX: R06.00 Dyspnea, unspecified (principal); R60.9 Edema, unspecified; I11.0 Hypertensive heart disease with heart failure; I50.9 Heart failure, unspecified; F17.220 Nicotine dependence, chewing tobacco, uncomplicated; Z79.01 Long term (current) use of anticoagulants; Z79.82 Long term (current) use of aspirin
CPT/HCPCS: 71045; 80048; 85025

== ENCOUNTER 2022-12-01 14:03 | Emergency (ER) | payer OTHER ==
[2022-12-01] MEDS ORDERED: predniSONE 20 MG TAB ONE (14:54)
== END 2022-12-01 15:00 | disposition home or self-care (01) ==
LOC: NAV ERS 14:03
DX: M54.32 Sciatica, left side (principal); I13.0 Hypertensive heart and chronic kidney disease with heart failure and stage 1 through stage 4 chronic kidney disease, or unspecified chronic kidney disease; N18.6 End stage renal disease; I50.9 Heart failure, unspecified; F17.290 Nicotine dependence, other tobacco product, uncomplicated; Z99.2 Dependence on renal dialysis
CPT/HCPCS: 99283; J7512

== ENCOUNTER 2023-03-06 17:26 | Inpatient (IN) | payer OTHER ==
[2023-03-06] MEDS ORDERED: Ventolin HFA Inhaler 60 PUFF INHALER INH PRN (18:16)
[2023-03-06] MEDS ORDERED: Sodium Chloride 0.65% Nasal 44 ML BOT EA NARE PRN (18:19)
[2023-03-06] MEDS ORDERED: cloNIDine 0.1 MG TAB PO PRN (18:19)
[2023-03-06] MEDS ORDERED: Ondansetron ODT 4 MG TAB PO PRN (18:19)
[2023-03-06] MEDS ORDERED: Acetaminophen 650 MG Suppository PR PRN (18:19)
[2023-03-06] MEDS ORDERED: Calcium Carbonate 500 MG ChewTAB PO PRN (18:19)
[2023-03-06] MEDS ORDERED: Acetaminophen 325 MG TAB PO PRN (18:19)
[2023-03-06] MEDS ORDERED: Artificial Tear Sol 15 ML BOT EA EYE PRN (18:19)
[2023-03-06] MEDS ORDERED: Bisacodyl 10 MG SUPP PR PRN (18:19)
[2023-03-06] MEDS ORDERED: Bisacodyl 5 MG TAB PO PRN (18:19)
[2023-03-06] MEDS: HYDROcodone/Acetaminophen 5/325 mg Tablet PO PRN (21:16)
[2023-03-06] MEDS: Isosorbide Dinitrate 20 MG TAB PO SCH (21:19)
[2023-03-06] MEDS: Senokot S 8.6-50 MG TAB PO SCH (21:19)
[2023-03-06] MEDS: Rosuvastatin 10 MG TAB PO SCH (21:19)
[2023-03-07] MEDS: Amiodarone 200 MG TAB PO SCH (09:16)
[2023-03-07] MEDS: Aspirin 81 mg Enteric Coated Tablet PO SCH (09:16)
[2023-03-07] MEDS: Senokot S 8.6-50 MG TAB PO SCH ×2 (09:16→21:00)
[2023-03-07] MEDS: Isosorbide Dinitrate 20 MG TAB PO SCH ×3 (09:16→21:00)
[2023-03-07] MEDS: HYDROcodone/Acetaminophen 5/325 mg Tablet PO PRN ×3 (09:18→21:00)
[2023-03-07] MEDS: Polyethylene Glycol 3350 17 GM Packet PO SCH (09:20)
[2023-03-07 11:47] LABS: #Eosinphils 0.1 thou/uL (0.0-0.7); #Lymphocytes 0.7 thou/uL (1.20-3.40); #Monocytes 0.8 thou/uL (0.11-0.59); #Neutrophils 4.4 thou/uL (1.40-6.50); %Basophils 0.8 % (0.0-1.0); %Eosinophils 1.1 % (0.0-10.0); %Lymphocytes 11.2 % (21.0-51.0); %Monocytes 13.4 % (0.0-10.0); %Neutrophils 73.6 % (42.0-75.0); ALT (SGPT) Less than 7 U/L (8-55); AST (SGOT) 43 U/L (5-34); Albumin 3.6 g/dL (3.4-4.8); Alkaline Phosphatase 77 U/L (40-110); Anion Gap 19 mmol/L (10-20); BUN (Urea Nitrogen) 29 mg/dL (9.8-20.1); Bilirubin, Total 0.5 mg/dL (0.2-1.2); Calc. Creatinine Clearance 8 mL/min (70-130); Calcium 9.9 mg/dL (7.8-10.44); Carbon Dioxide 25 mmol/L (23-31); Chloride 94 mmol/L (98-107); Estimated GFR 7; Globulin 3.5 g/dL (2.4-3.5); Glucose 102 mg/dL (80-115); Hemoglobin 8.7 g/dL (12.0-16.0); Mean Corpuscular Hemoglobin 28.9 pg (27.0-31.0); Mean Corpuscular Volume 96.1 fl (78.0-98.0); Mean Platelet Volume 8.6 fL (7.4-10.4); Platelet Count 223 10x3/uL (130-400); Potassium 3.7 mmol/L (3.5-5.1); Protein, Total 7.1 g/dL (5.8-8.1); RBC Distribution Width 16.1 % (11.5-14.5); Red Blood Cell (RBC) Count 3.01 mill/uL (4.20-5.40); Sodium 134 mmol/L (136-145)
[2023-03-07] MEDS: Benzonatate 100 MG CAP PO PRN (15:43)
[2023-03-07] MEDS: Benzocaine/Menthol 1 LOZ LOZ PO PRN (15:43)
[2023-03-07] MEDS: Acetaminophen 500 MG TAB PO SCH (20:59)
[2023-03-07] MEDS: Rosuvastatin 10 MG TAB PO SCH (21:00)
[2023-03-07] MEDS: Mirtazapine 15 MG TAB PO SCH (21:00)
[2023-03-08] MEDS: Benzonatate 100 MG CAP PO PRN ×2 (02:41→20:25)
[2023-03-08] MEDS: Guaifenesin DM 100-10/5 ML UDCUP PO PRN ×2 (02:41→20:25)
[2023-03-08] MEDS: Benzocaine/Menthol 1 LOZ LOZ PO PRN (02:41)
[2023-03-08] MEDS: Acetaminophen 500 MG TAB PO SCH ×3 (06:11→20:24)
[2023-03-08] MEDS: Aspirin 81 mg Enteric Coated Tablet PO SCH (07:46)
[2023-03-08] MEDS: Senokot S 8.6-50 MG TAB PO SCH ×2 (07:46→20:25)
[2023-03-08] MEDS: Isosorbide Dinitrate 20 MG TAB PO SCH ×3 (07:46→20:25)
[2023-03-08] MEDS: Amiodarone 200 MG TAB PO SCH (07:46)
[2023-03-08] MEDS: Polyethylene Glycol 3350 17 GM Packet PO SCH (07:47)
[2023-03-08] MEDS: HYDROcodone/Acetaminophen 5/325 mg Tablet PO PRN ×2 (07:50→16:06)
[2023-03-08] MEDS: Rosuvastatin 10 MG TAB PO SCH (20:25)
[2023-03-08] MEDS: diphenhydrAMINE 25 MG CAP PO PRN (20:25)
[2023-03-08] MEDS: Mirtazapine 15 MG TAB PO SCH (20:25)
[2023-03-09] MEDS: Acetaminophen 500 MG TAB PO SCH ×3 (06:04→21:18)
[2023-03-09] MEDS: Polyethylene Glycol 3350 17 GM Packet PO SCH (08:18)
[2023-03-09] MEDS: Senokot S 8.6-50 MG TAB PO SCH ×2 (08:19→21:20)
[2023-03-09] MEDS: Aspirin 81 mg Enteric Coated Tablet PO SCH (08:19)
[2023-03-09] MEDS: Isosorbide Dinitrate 20 MG TAB PO SCH ×4 (08:19→21:46)
[2023-03-09] MEDS: Amiodarone 200 MG TAB PO SCH (08:21)
[2023-03-09] MEDS: diphenhydrAMINE 25 MG CAP PO PRN (09:37)
[2023-03-09] MEDS: HYDROcodone/Acetaminophen 5/325 mg Tablet PO PRN ×2 (09:40→19:16)
[2023-03-09] MEDS: Benzocaine/Menthol 1 LOZ LOZ PO PRN (12:44)
[2023-03-09] MEDS: Nystatin 500,000 UNITS/5 ML UDCUP SSW SCH ×2 (16:51→21:19)
[2023-03-09] MEDS: Mirtazapine 15 MG TAB PO SCH (21:19)
[2023-03-09] MEDS: Rosuvastatin 10 MG TAB PO SCH (21:19)
[2023-03-10] MEDS: Acetaminophen 500 MG TAB PO SCH ×3 (05:29→20:29)
[2023-03-10] MEDS: Isosorbide Dinitrate 20 MG TAB PO SCH ×3 (09:55→21:11)
[2023-03-10] MEDS: Senokot S 8.6-50 MG TAB PO SCH ×2 (09:55→20:30)
[2023-03-10] MEDS: Amiodarone 200 MG TAB PO SCH (09:55)
[2023-03-10] MEDS: Aspirin 81 mg Enteric Coated Tablet PO SCH (09:55)
[2023-03-10] MEDS: Nystatin 500,000 UNITS/5 ML UDCUP SSW SCH ×4 (09:55→20:29)
[2023-03-10] MEDS: HYDROcodone/Acetaminophen 5/325 mg Tablet PO PRN ×3 (09:56→22:02)
[2023-03-10] MEDS: Polyethylene Glycol 3350 17 GM Packet PO SCH (09:58)
[2023-03-10] MEDS: Benzonatate 100 MG CAP PO PRN (10:07)
[2023-03-10] MEDS: Benzocaine/Menthol 1 LOZ LOZ PO PRN (10:07)
[2023-03-10] MEDS ORDERED: Polyethylene Glycol 3350 17 GM Packet PO SCH (16:45)
[2023-03-10] MEDS: Mirtazapine 15 MG TAB PO SCH (20:30)
[2023-03-10] MEDS: Rosuvastatin 10 MG TAB PO SCH (20:30)
[2023-03-11] MEDS: Acetaminophen 500 MG TAB PO SCH ×3 (05:38→21:07)
[2023-03-11 06:03] LABS: Hematocrit 29.5 % (36.0-47.0); Hemoglobin 8.9 g/dL (12.0-16.0); Platelet Count 235 10x3/uL (130-400)
[2023-03-11] MEDS: Benzonatate 100 MG CAP PO PRN (09:24)
[2023-03-11] MEDS: Benzocaine/Menthol 1 LOZ LOZ PO PRN (09:24)
[2023-03-11] MEDS: Senokot S 8.6-50 MG TAB PO SCH ×2 (09:26→21:06)
[2023-03-11] MEDS: Polyethylene Glycol 3350 17 GM Packet PO SCH (09:26)
[2023-03-11] MEDS: Nystatin 500,000 UNITS/5 ML UDCUP SSW SCH ×4 (09:26→21:05)
[2023-03-11] MEDS: Isosorbide Dinitrate 20 MG TAB PO SCH ×3 (09:27→21:05)
[2023-03-11] MEDS: Amiodarone 200 MG TAB PO SCH (09:28)
[2023-03-11] MEDS: Aspirin 81 mg Enteric Coated Tablet PO SCH (09:29)
[2023-03-11 17:24] LABS: Iron 33 ug/dL (50-170); Iron Binding Capacity, Total 178 mcg/dL (265-497)
[2023-03-11] MEDS: Rosuvastatin 10 MG TAB PO SCH (21:05)
[2023-03-11] MEDS: HYDROcodone/Acetaminophen 5/325 mg Tablet PO PRN (21:06)
[2023-03-11] MEDS: Mirtazapine 15 MG TAB PO SCH (21:11)
[2023-03-12] MEDS: Benzocaine/Menthol 1 LOZ LOZ PO PRN ×3 (00:25→13:09)
[2023-03-12 00:44] VITALS: BMI 22.4
[2023-03-12] MEDS: Acetaminophen 500 MG TAB PO SCH ×3 (06:07→22:40)
[2023-03-12] MEDS: HYDROcodone/Acetaminophen 5/325 mg Tablet PO PRN ×2 (08:25→22:38)
[2023-03-12] MEDS: Polyethylene Glycol 3350 17 GM Packet PO SCH (08:27)
[2023-03-12] MEDS: Amiodarone 200 MG TAB PO SCH (08:30)
[2023-03-12] MEDS: Benzonatate 100 MG CAP PO PRN ×3 (08:30→22:37)
[2023-03-12] MEDS: Aspirin 81 mg Enteric Coated Tablet PO SCH (08:31)
[2023-03-12] MEDS: Senokot S 8.6-50 MG TAB PO SCH ×2 (08:31→20:15)
[2023-03-12] MEDS: Isosorbide Dinitrate 20 MG TAB PO SCH ×3 (08:32→20:16)
[2023-03-12] MEDS: Nystatin 500,000 UNITS/5 ML UDCUP SSW SCH ×4 (08:33→20:15)
[2023-03-12] MEDS: Rosuvastatin 10 MG TAB PO SCH (20:15)
[2023-03-12] MEDS: Mirtazapine 15 MG TAB PO SCH (20:15)
[2023-03-13] MEDS: Acetaminophen 500 MG TAB PO SCH ×3 (05:34→22:27)
[2023-03-13] MEDS: Polyethylene Glycol 3350 17 GM Packet PO SCH (09:03)
[2023-03-13] MEDS: Nystatin 500,000 UNITS/5 ML UDCUP SSW SCH ×4 (09:03→20:26)
[2023-03-13] MEDS: Guaifenesin DM 100-10/5 ML UDCUP PO PRN (09:03)
[2023-03-13] MEDS: Amiodarone 200 MG TAB PO SCH (09:04)
[2023-03-13] MEDS: Isosorbide Dinitrate 20 MG TAB PO SCH ×4 (09:04→20:31)
[2023-03-13] MEDS: Senokot S 8.6-50 MG TAB PO SCH ×2 (09:04→20:26)
[2023-03-13] MEDS: Aspirin 81 mg Enteric Coated Tablet PO SCH (09:05)
[2023-03-13] MEDS: Ferrous Sulfate 325 MG TAB PO SCH (09:05)
[2023-03-13] MEDS: Benzocaine/Menthol 1 LOZ LOZ PO PRN ×2 (09:05→17:55)
[2023-03-13] MEDS: HYDROcodone/Acetaminophen 5/325 mg Tablet PO PRN ×3 (09:06→22:26)
[2023-03-13] MEDS: Mirtazapine 15 MG TAB PO SCH (20:26)
[2023-03-13] MEDS: Rosuvastatin 10 MG TAB PO SCH (20:26)
[2023-03-14] MEDS: HYDROcodone/Acetaminophen 5/325 mg Tablet PO PRN ×3 (05:30→21:48)
[2023-03-14] MEDS: Acetaminophen 500 MG TAB PO SCH ×3 (05:31→21:47)
[2023-03-14] MEDS: Ferrous Sulfate 325 MG TAB PO SCH (08:13)
[2023-03-14] MEDS: Isosorbide Dinitrate 20 MG TAB PO SCH ×3 (08:13→20:45)
[2023-03-14] MEDS: Senokot S 8.6-50 MG TAB PO SCH ×2 (08:13→20:44)
[2023-03-14] MEDS: Polyethylene Glycol 3350 17 GM Packet PO SCH (08:13)
[2023-03-14] MEDS: Aspirin 81 mg Enteric Coated Tablet PO SCH (08:13)
[2023-03-14] MEDS: Amiodarone 200 MG TAB PO SCH (08:13)
[2023-03-14 08:44] LABS: Hematocrit 25.6 % (36.0-47.0); Hemoglobin 7.7 g/dL (12.0-16.0); Mean Corpuscular Hemoglobin 28.8 pg (27.0-31.0); Mean Corpuscular Volume 95.8 fl (78.0-98.0); Red Blood Cell (RBC) Count 2.67 mill/uL (4.20-5.40); White Blood Cell (WBC) Count 4.5 10x3/uL (4.8-10.8)
[2023-03-14 08:45] LABS: #Eosinphils 0.1 thou/uL (0.0-0.7); #Lymphocytes 0.5 thou/uL (1.20-3.40); #Monocytes 0.6 thou/uL (0.11-0.59); #Neutrophils 3.2 thou/uL (1.40-6.50); %Basophils 0.6 % (0.0-1.0); %Lymphocytes 12.3 % (21.0-51.0); %Monocytes 13.3 % (0.0-10.0); %Neutrophils 71.8 % (42.0-75.0); Manual Diff?? NO; Mean Corpuscular HGB CONC 30.1 g/dL (32.0-36.0); Mean Platelet Volume 7.3 fL (7.4-10.4); Platelet Count 204 10x3/uL (130-400); RBC Distribution Width 15.7 % (11.5-14.5)
[2023-03-14 09:00] LABS: Alkaline Phosphatase 58 U/L (40-110)
[2023-03-14 09:02] LABS: ALT (SGPT) Less than 7 U/L (8-55); AST (SGOT) 15 U/L (5-34); Albumin 3.2 g/dL (3.4-4.8); Anion Gap 19 mmol/L (10-20); BUN (Urea Nitrogen) 21 mg/dL (9.8-20.1); Bilirubin, Total 0.5 mg/dL (0.2-1.2); Calc. Creatinine Clearance 9 mL/min (70-130); Calcium 9.2 mg/dL (7.8-10.44); Carbon Dioxide 28 mmol/L (23-31); Chloride 95 mmol/L (98-107); Estimated GFR 8; Globulin 3.5 g/dL (2.4-3.5); Potassium 3.9 mmol/L (3.5-5.1); Protein, Total 6.7 g/dL (5.8-8.1); Sodium 138 mmol/L (136-145)
[2023-03-14 09:47] LABS: Glucose 54 mg/dL (80-115)
[2023-03-14] MEDS: Nystatin 500,000 UNITS/5 ML UDCUP SSW SCH ×4 (10:32→20:45)
[2023-03-14] MEDS: Rosuvastatin 10 MG TAB PO SCH (20:44)
[2023-03-14] MEDS: Mirtazapine 15 MG TAB PO SCH (20:45)
[2023-03-15] MEDS: Acetaminophen 500 MG TAB PO SCH ×3 (05:20→22:45)
[2023-03-15] MEDS: Guaifenesin DM 100-10/5 ML UDCUP PO PRN (09:45)
[2023-03-15] MEDS: Benzocaine/Menthol 1 LOZ LOZ PO PRN (09:45)
[2023-03-15] MEDS: Ferrous Sulfate 325 MG TAB PO SCH (09:45)
[2023-03-15] MEDS: Amiodarone 200 MG TAB PO SCH (09:45)
[2023-03-15] MEDS: Isosorbide Dinitrate 20 MG TAB PO SCH ×3 (09:45→20:39)
[2023-03-15] MEDS: Benzonatate 100 MG CAP PO PRN (09:45)
[2023-03-15] MEDS: Aspirin 81 mg Enteric Coated Tablet PO SCH (09:45)
[2023-03-15] MEDS: Senokot S 8.6-50 MG TAB PO SCH ×2 (09:46→20:39)
[2023-03-15] MEDS: HYDROcodone/Acetaminophen 5/325 mg Tablet PO PRN ×3 (09:46→22:44)
[2023-03-15] MEDS: Polyethylene Glycol 3350 17 GM Packet PO SCH (09:47)
[2023-03-15] MEDS: Nystatin 500,000 UNITS/5 ML UDCUP SSW SCH ×4 (09:47→20:39)
[2023-03-15] MEDS: valACYclovir 500 MG TAB PO SCH (17:44)
[2023-03-15] MEDS: Rosuvastatin 10 MG TAB PO SCH (20:39)
[2023-03-15] MEDS: Mirtazapine 15 MG TAB PO SCH (20:39)
[2023-03-16] MEDS: Acetaminophen 500 MG TAB PO SCH ×2 (05:26→13:20)
[2023-03-16] MEDS: HYDROcodone/Acetaminophen 5/325 mg Tablet PO PRN ×3 (08:44→17:29)
[2023-03-16] MEDS: Nystatin 500,000 UNITS/5 ML UDCUP SSW SCH ×4 (08:44→16:49)
[2023-03-16] MEDS: Amiodarone 200 MG TAB PO SCH (08:45)
[2023-03-16] MEDS: Aspirin 81 mg Enteric Coated Tablet PO SCH (08:45)
[2023-03-16] MEDS: Ferrous Sulfate 325 MG TAB PO SCH (08:45)
[2023-03-16] MEDS: Isosorbide Dinitrate 20 MG TAB PO SCH ×2 (08:46→15:06)
[2023-03-16] MEDS: Polyethylene Glycol 3350 17 GM Packet PO SCH (08:46)
[2023-03-16] MEDS: Senokot S 8.6-50 MG TAB PO SCH (08:46)
[2023-03-16] MEDS ORDERED: Hydrocortisone 1% Cream 30 GM TUBE TOP PRN (09:41)
[2023-03-16] MEDS: diphenhydrAMINE 25 MG CAP PO PRN (13:22)
[2023-03-16 15:03] VITALS: BP 129/57; TEMP 98.1
[2023-03-16] MEDS: valACYclovir 500 MG TAB PO SCH (16:49)
== END 2023-03-16 18:40 | disposition home health service (06) | DRG 947 ==
LOC: NAV ACUTE 18:47
PROVIDERS: ADMIT Family Medicine; ATTEND Family Medicine
DX: R53.81 Other malaise (principal); N18.6 End stage renal disease; I13.2 Hypertensive heart and chronic kidney disease with heart failure and with stage 5 chronic kidney disease, or end stage renal disease; J98.11 Atelectasis; I50.32 Chronic diastolic (congestive) heart failure; I48.91 Unspecified atrial fibrillation; I25.10 Atherosclerotic heart disease of native coronary artery without angina pectoris; K21.9 Gastro-esophageal reflux disease without esophagitis; M10.9 Gout, unspecified; E78.5 Hyperlipidemia, unspecified; F50.89 Other specified eating disorder; R05.9 Cough, unspecified; K59.00 Constipation, unspecified; D50.9 Iron deficiency anemia, unspecified; M25.512 Pain in left shoulder; R53.1 Weakness; Z88.5 Allergy status to narcotic agent; Z88.8 Allergy status to other drugs, medicaments and biological substances; Z79.82 Long term (current) use of aspirin; Z79.51 Long term (current) use of inhaled steroids; Z79.899 Other long term (current) drug therapy; Z90.710 Acquired absence of both cervix and uterus; Z99.2 Dependence on renal dialysis; Z68.22 Body mass index [BMI] 22.0-22.9, adult; Z95.1 Presence of aortocoronary bypass graft
CPT/HCPCS: 36415; 36416; 71046; 71250; 74018; 74176; 80053; 82728; 83540; 83550; 85014; 85018; 85025; 85049; J1650; Q0162

== ENCOUNTER 2023-06-08 10:44 | Emergency (ER) | payer OTHER ==
[2023-06-08 11:08] LABS: #Eosinphils 0.1 thou/uL (0.0-0.7); #Lymphocytes 0.8 thou/uL (1.20-3.40); #Monocytes 0.2 thou/uL (0.11-0.59); #Neutrophils 2.6 thou/uL (1.40-6.50); %Basophils 0.3 % (0.0-1.0); %Eosinophils 2.9 % (0.0-10.0); %Lymphocytes 22.3 % (21.0-51.0); %Monocytes 4.3 % (0.0-10.0); %Neutrophils 70.2 % (42.0-75.0); Hematocrit 28.8 % (36.0-47.0); Hemoglobin 9.1 g/dL (12.0-16.0); Mean Corpuscular HGB CONC 31.6 g/dL (32.0-36.0); Mean Corpuscular Volume 98.1 fl (78.0-98.0); Mean Platelet Volume 10.8 fL (7.4-10.4); Platelet Count 140 10x3/uL (130-400); RBC Distribution Width 15.4 % (11.5-14.5); Red Blood Cell (RBC) Count 2.93 mill/uL (4.20-5.40); White Blood Cell (WBC) Count 3.7 10x3/uL (4.8-10.8)
[2023-06-08 11:18] LABS: Anion Gap 20 mmol/L (10-20); BUN (Urea Nitrogen) 21 mg/dL (9.8-20.1); Calc. Creatinine Clearance 0 mL/min (70-130); Calcium 10.5 mg/dL (7.8-10.44); Carbon Dioxide 30 mmol/L (23-31); Chloride 94 mmol/L (98-107); Estimated GFR 9; Glucose 72 mg/dL (83-110); Magnesium 2.1 mg/dL (1.6-2.6); Phosphorus 1.7 mg/dL (2.3-4.7); Potassium 3.1 mmol/L (3.5-5.1); Sodium 141 mmol/L (136-145)
[2023-06-08 11:27] LABS: Troponin I 0.011 ng/mL (< 0.028)
== END 2023-06-08 12:53 | disposition home or self-care (01) ==
LOC: NAV ERS 10:44
DX: J96.20 Acute and chronic respiratory failure, unspecified whether with hypoxia or hypercapnia (principal); I48.91 Unspecified atrial fibrillation; I13.2 Hypertensive heart and chronic kidney disease with heart failure and with stage 5 chronic kidney disease, or end stage renal disease; I50.9 Heart failure, unspecified; N18.6 End stage renal disease; K21.9 Gastro-esophageal reflux disease without esophagitis; F17.220 Nicotine dependence, chewing tobacco, uncomplicated; Z79.82 Long term (current) use of aspirin; Z99.2 Dependence on renal dialysis
CPT/HCPCS: 71045; 80048; 83735; 83880; 84100; 84484; 85025; 93005

== ENCOUNTER 2023-07-04 12:21 | Emergency (ER) | payer OTHER | END 2023-07-04 14:58 | disposition home or self-care (01) | LOC: NAV ERS 12:21 | DX: H47.10 Unspecified papilledema (principal); I13.2 Hypertensive heart and chronic kidney disease with heart failure and with stage 5 chronic kidney disease, or end stage renal disease; N18.6 End stage renal disease; Z99.2 Dependence on renal dialysis; F17.220 Nicotine dependence, chewing tobacco, uncomplicated; Z79.899 Other long term (current) drug therapy; Z79.82 Long term (current) use of aspirin | CPT/HCPCS: 70450 ==

== ENCOUNTER 2023-07-29 15:10 | Emergency (ER) | payer OTHER | END 2023-07-29 16:30 | disposition home or self-care (01) | LOC: NAV ERS 15:10 | DX: I10 Essential (primary) hypertension (principal); B02.22 Postherpetic trigeminal neuralgia; I11.0 Hypertensive heart disease with heart failure; I50.9 Heart failure, unspecified; I25.10 Atherosclerotic heart disease of native coronary artery without angina pectoris; Z79.82 Long term (current) use of aspirin; Z79.899 Other long term (current) drug therapy | CPT/HCPCS: 99283 ==

== ENCOUNTER 2023-08-16 12:39 | Inpatient (IN) | payer OTHER ==
[2023-08-16] MEDS ORDERED: Ipratropium/Albuterol 3 ML NEB NEB PRN (16:18)
[2023-08-16] MEDS ORDERED: Non-Formulary Item 1 EACH (Acetaminophen [Tylenol] 325 MG Capsule) PO PRN (16:18)
[2023-08-16] MEDS ORDERED: Benzonatate 100 MG CAP PO PRN (16:18)
[2023-08-16] MEDS ORDERED: Artificial Tear Sol 15 ML BOT EA EYE PRN (16:23)
[2023-08-16] MEDS ORDERED: Ondansetron ODT 4 MG TAB PO PRN (16:23)
[2023-08-16] MEDS ORDERED: Bisacodyl 10 MG SUPP PR PRN (16:23)
[2023-08-16] MEDS ORDERED: Bisacodyl 5 MG TAB PO PRN (16:23)
[2023-08-16] MEDS ORDERED: Senokot S 8.6-50 MG TAB PO PRN (16:23)
[2023-08-16] MEDS ORDERED: Acetaminophen 650 MG Suppository PR PRN (16:23)
[2023-08-16] MEDS ORDERED: Sodium Chloride 0.65% Nasal 44 ML BOT EA NARE PRN (16:23)
[2023-08-16] MEDS ORDERED: Guaifenesin DM 100-10/5 ML UDCUP PO PRN (16:23)
[2023-08-16] MEDS ORDERED: NACL SC SCH (16:30)
[2023-08-16] MEDS ORDERED: HEPARIN SOD PORCINE SC SCH (16:30)
[2023-08-16] MEDS ORDERED: [UNRECOGNIZED DRUG - OTHER] SC SCH (16:30)
[2023-08-16] MEDS: guaiFENesin ER 600 MG TAB PO SCH (22:26)
[2023-08-16] MEDS: Heparin 5,000 UNITS/ML VIAL SC SCH (22:26)
[2023-08-16] MEDS: Famotidine 20 MG TAB PO SCH (22:27)
[2023-08-16] MEDS: NIFEdipine XL 30 MG ER.TAB PO SCH (22:27)
[2023-08-16] MEDS: Isosorbide Dinitrate 10 MG TAB PO SCH (22:29)
[2023-08-16] MEDS: Acetaminophen 325 MG TAB PO PRN (23:57)
[2023-08-17 05:59] LABS: #Eosinphils 0.1 thou/uL (0.0-0.7); #Lymphocytes 0.6 thou/uL (1.20-3.40); #Monocytes 0.4 thou/uL (0.11-0.59); #Neutrophils 2.6 thou/uL (1.40-6.50); %Basophils 0.7 % (0.0-1.0); %Eosinophils 1.8 % (0.0-10.0); %Lymphocytes 15.6 % (21.0-51.0); %Monocytes 10.2 % (0.0-10.0); %Neutrophils 71.7 % (42.0-75.0); Hemoglobin 8.9 g/dL (12.0-16.0); Mean Corpuscular HGB CONC 31.9 g/dL (32.0-36.0); Mean Corpuscular Hemoglobin 29.8 pg (27.0-31.0); Mean Corpuscular Volume 93.5 fl (78.0-98.0); Mean Platelet Volume 8.8 fL (7.4-10.4); Platelet Count 136 10x3/uL (130-400); RBC Distribution Width 17.1 % (11.5-14.5); Red Blood Cell (RBC) Count 2.99 mill/uL (4.20-5.40); White Blood Cell (WBC) Count 3.6 10x3/uL (4.8-10.8)
[2023-08-17 06:14] LABS: ALT (SGPT) 14 U/L (8-55); AST (SGOT) 18 U/L (5-34); Albumin 3.8 g/dL (3.4-4.8); Alkaline Phosphatase 95 U/L (40-110); Anion Gap 16 mmol/L (10-20); BUN (Urea Nitrogen) 30 mg/dL (9.8-20.1); Bilirubin, Total 0.5 mg/dL (0.2-1.2); Calc. Creatinine Clearance 11 mL/min (70-130); Calcium 9.3 mg/dL (7.8-10.44); Carbon Dioxide 26 mmol/L (23-31); Chloride 96 mmol/L (98-107); Estimated GFR 10; Globulin 2.8 g/dL (2.4-3.5); Glucose 81 mg/dL (83-110); Potassium 4.7 mmol/L (3.5-5.1); Protein, Total 6.6 g/dL (5.8-8.1); Sodium 133 mmol/L (136-145)
[2023-08-17] MEDS: Aspirin 81 mg Enteric Coated Tablet PO SCH (08:35)
[2023-08-17] MEDS: NIFEdipine XL 30 MG ER.TAB PO SCH ×2 (08:35→20:49)
[2023-08-17] MEDS: Heparin 5,000 UNITS/ML VIAL SC SCH ×3 (08:35→20:51)
[2023-08-17] MEDS: Loratadine 10 MG TAB PO SCH (08:36)
[2023-08-17] MEDS: Folic Acid 1 MG TAB PO SCH (08:36)
[2023-08-17] MEDS: Amiodarone 200 MG TAB PO SCH (08:36)
[2023-08-17] MEDS: guaiFENesin ER 600 MG TAB PO SCH ×2 (08:36→20:49)
[2023-08-17] MEDS: Losartan 25 MG TAB PO SCH (08:36)
[2023-08-17] MEDS: AMOXicillin 250 MG CAP PO SCH (08:37)
[2023-08-17] MEDS: Isosorbide Dinitrate 10 MG TAB PO SCH ×2 (08:42→15:07)
[2023-08-17] MEDS: Polyethylene Glycol 3350 17 GM Packet PO SCH (08:53)
[2023-08-17] MEDS: Acetaminophen 325 MG TAB PO PRN ×3 (09:05→21:05)
[2023-08-17] MEDS: Benzocaine/Menthol 1 LOZ LOZ PO PRN (17:13)
[2023-08-17] MEDS: Melatonin 3 MG TAB PO PRN (20:48)
[2023-08-17] MEDS: Famotidine 20 MG TAB PO SCH (20:50)
[2023-08-17] MEDS ORDERED: Isosorbide Dinitrate 20 MG TAB PO SCH (21:00)
[2023-08-18] MEDS: Acetaminophen 325 MG TAB PO PRN ×3 (09:02→21:15)
[2023-08-18] MEDS: guaiFENesin ER 600 MG TAB PO SCH ×2 (09:05→21:03)
[2023-08-18] MEDS: Aspirin 81 mg Enteric Coated Tablet PO SCH (09:06)
[2023-08-18] MEDS: Folic Acid 1 MG TAB PO SCH (09:06)
[2023-08-18] MEDS: Amiodarone 200 MG TAB PO SCH (09:06)
[2023-08-18] MEDS: AMOXicillin 250 MG CAP PO SCH (09:06)
[2023-08-18] MEDS: NIFEdipine XL 30 MG ER.TAB PO SCH ×2 (09:06→20:59)
[2023-08-18] MEDS: Loratadine 10 MG TAB PO SCH (09:07)
[2023-08-18] MEDS: Losartan 25 MG TAB PO SCH (09:10)
[2023-08-18] MEDS: Isosorbide Dinitrate 10 MG TAB PO SCH ×3 (09:10→21:00)
[2023-08-18] MEDS: Heparin 5,000 UNITS/ML VIAL SC SCH ×3 (09:17→21:03)
[2023-08-18] MEDS: Polyethylene Glycol 3350 17 GM Packet PO SCH (10:23)
[2023-08-18] MEDS: Famotidine 20 MG TAB PO SCH (20:59)
[2023-08-18] MEDS: Melatonin 3 MG TAB PO PRN (22:51)
[2023-08-19] MEDS: Acetaminophen 325 MG TAB PO PRN ×2 (04:02→19:52)
[2023-08-19] MEDS ORDERED: NIFEdipine XL 30 MG ER.TAB ONE ×3 (08:22→20:28)
[2023-08-19] MEDS ORDERED: AMOXicillin 250 MG CAP ONE (08:25)
[2023-08-19] MEDS: NIFEdipine XL 30 MG ER.TAB PO SCH ×2 (08:32→20:33)
[2023-08-19] MEDS: Losartan 25 MG TAB PO SCH (08:32)
[2023-08-19] MEDS: guaiFENesin ER 600 MG TAB PO SCH ×2 (08:32→20:34)
[2023-08-19] MEDS: Amiodarone 200 MG TAB PO SCH (08:33)
[2023-08-19] MEDS: Aspirin 81 mg Enteric Coated Tablet PO SCH (08:33)
[2023-08-19] MEDS: Folic Acid 1 MG TAB PO SCH (08:33)
[2023-08-19] MEDS: Isosorbide Dinitrate 10 MG TAB PO SCH (08:33)
[2023-08-19] MEDS: Loratadine 10 MG TAB PO SCH (08:33)
[2023-08-19] MEDS: AMOXicillin 250 MG CAP PO SCH (08:35)
[2023-08-19] MEDS: Polyethylene Glycol 3350 17 GM Packet PO SCH (08:36)
[2023-08-19] MEDS: Heparin 5,000 UNITS/ML VIAL SC SCH ×3 (08:37→20:37)
[2023-08-19] MEDS: Lidocaine 4% Patch TD SCH (14:27)
[2023-08-19] MEDS: Isosorbide Dinitrate 20 MG TAB PO SCH ×2 (15:08→20:35)
[2023-08-19] MEDS: Famotidine 20 MG TAB PO SCH (20:34)
[2023-08-19] MEDS: Melatonin 3 MG TAB PO PRN (22:09)
[2023-08-20] MEDS: Benzocaine/Menthol 1 LOZ LOZ PO PRN (00:12)
[2023-08-20] MEDS: Transdermal Patch Removal TOP SCH (00:13)
[2023-08-20] MEDS: Acetaminophen 325 MG TAB PO PRN ×3 (05:09→23:51)
[2023-08-20 06:01] VITALS: BMI 20.5
[2023-08-20] MEDS: Losartan 25 MG TAB PO SCH (09:01)
[2023-08-20] MEDS: Amiodarone 200 MG TAB PO SCH (09:01)
[2023-08-20] MEDS: Aspirin 81 mg Enteric Coated Tablet PO SCH (09:01)
[2023-08-20] MEDS: Isosorbide Dinitrate 20 MG TAB PO SCH ×3 (09:02→20:41)
[2023-08-20] MEDS: Folic Acid 1 MG TAB PO SCH (09:02)
[2023-08-20] MEDS: guaiFENesin ER 600 MG TAB PO SCH ×2 (09:02→20:42)
[2023-08-20] MEDS: Loratadine 10 MG TAB PO SCH (09:02)
[2023-08-20] MEDS: Polyethylene Glycol 3350 17 GM Packet PO SCH (09:03)
[2023-08-20] MEDS ORDERED: AMOXicillin 250 MG CAP ONE (09:17)
[2023-08-20] MEDS ORDERED: NIFEdipine XL 30 MG ER.TAB ONE ×2 (09:18→20:35)
[2023-08-20] MEDS: AMOXicillin 250 MG CAP PO SCH (09:20)
[2023-08-20] MEDS: NIFEdipine XL 30 MG ER.TAB PO SCH ×2 (09:20→20:41)
[2023-08-20] MEDS: Heparin 5,000 UNITS/ML VIAL SC SCH ×3 (09:22→20:39)
[2023-08-20] MEDS: Lidocaine 4% Patch TD SCH (11:33)
[2023-08-20] MEDS: Famotidine 20 MG TAB PO SCH (20:42)
[2023-08-20] MEDS: Melatonin 3 MG TAB PO PRN (20:42)
[2023-08-21] MEDS: Transdermal Patch Removal TOP SCH (00:10)
[2023-08-21 03:46] VITALS: BP 182/76; TEMP 98.7
== END 2023-08-21 04:28 | disposition short-term general hospital (02) | DRG 947 ==
LOC: NAV ACUTE 18:19
PROVIDERS: ADMIT Family Medicine; ATTEND Family Medicine
DX: R53.1 Weakness (principal); N18.6 End stage renal disease; I50.42 Chronic combined systolic (congestive) and diastolic (congestive) heart failure; I13.2 Hypertensive heart and chronic kidney disease with heart failure and with stage 5 chronic kidney disease, or end stage renal disease; J96.11 Chronic respiratory failure with hypoxia; B34.8 Other viral infections of unspecified site; K21.9 Gastro-esophageal reflux disease without esophagitis; I25.10 Atherosclerotic heart disease of native coronary artery without angina pectoris; E78.5 Hyperlipidemia, unspecified; J30.9 Allergic rhinitis, unspecified; D63.1 Anemia in chronic kidney disease; K04.7 Periapical abscess without sinus; M25.512 Pain in left shoulder; Z99.2 Dependence on renal dialysis; Z88.5 Allergy status to narcotic agent; Z88.8 Allergy status to other drugs, medicaments and biological substances; Z79.82 Long term (current) use of aspirin; Z79.899 Other long term (current) drug therapy; Z79.2 Long term (current) use of antibiotics; Z79.01 Long term (current) use of anticoagulants; Z90.710 Acquired absence of both cervix and uterus; Z98.890 Other specified postprocedural states
CPT/HCPCS: 36415; 71045; 80053; 83880; 85025; 85379; 94640; J1644; J7620; Q0162

== ENCOUNTER 2023-08-25 13:45 | Inpatient (IN) | payer OTHER ==
[2023-08-25] MEDS ORDERED: Acetaminophen 650 MG Suppository PR PRN (15:15)
[2023-08-25] MEDS ORDERED: Guaifenesin DM 100-10/5 ML UDCUP PO PRN (15:15)
[2023-08-25] MEDS ORDERED: Ondansetron ODT 4 MG TAB PO PRN (15:15)
[2023-08-25] MEDS ORDERED: Bisacodyl 10 MG SUPP PR PRN (15:15)
[2023-08-25] MEDS ORDERED: Sodium Chloride 0.65% Nasal 44 ML BOT EA NARE PRN (15:15)
[2023-08-25] MEDS ORDERED: Benzonatate 100 MG CAP PO PRN (15:15)
[2023-08-25] MEDS ORDERED: Bisacodyl 5 MG TAB PO PRN (15:15)
[2023-08-25] MEDS ORDERED: Artificial Tear Sol 15 ML BOT EA EYE PRN (15:15)
[2023-08-25] MEDS ORDERED: Calcium Carbonate 500 MG ChewTAB PO PRN (15:15)
[2023-08-25] MEDS ORDERED: Albuterol 200 PUFF (6.7GM INHALER) INH PRN (17:48)
[2023-08-25] MEDS: Famotidine 20 MG TAB PO SCH (21:04)
[2023-08-25] MEDS: Apixaban 2.5 MG TAB PO SCH (21:05)
[2023-08-25] MEDS: Isosorbide Dinitrate 10 MG TAB PO SCH (21:05)
[2023-08-25] MEDS: hydrALAZINE 25 MG TAB PO SCH (21:05)
[2023-08-25] MEDS: NIFEdipine XL 30 MG ER.TAB PO SCH (21:06)
[2023-08-26] MEDS: Lorazepam 0.5 MG TAB PO PRN (00:06)
[2023-08-26 06:47] LABS: #Basophils 0.1 thou/uL (0.0-0.2); #Eosinphils 0.1 thou/uL (0.0-0.7); #Lymphocytes 0.8 thou/uL (1.20-3.40); #Monocytes 0.4 thou/uL (0.11-0.59); #Neutrophils 2.6 thou/uL (1.40-6.50); %Basophils 1.3 % (0.0-1.0); %Eosinophils 2.2 % (0.0-10.0); %Lymphocytes 20.4 % (21.0-51.0); %Monocytes 10.2 % (0.0-10.0); %Neutrophils 65.9 % (42.0-75.0); Hematocrit 29.2 % (36.0-47.0); Hemoglobin 9.4 g/dL (12.0-16.0); Mean Corpuscular HGB CONC 32.2 g/dL (32.0-36.0); Mean Corpuscular Hemoglobin 30.5 pg (27.0-31.0); Mean Corpuscular Volume 94.9 fl (78.0-98.0); Mean Platelet Volume 7.6 fL (7.4-10.4); Platelet Count 154 10x3/uL (130-400); RBC Distribution Width 17.6 % (11.5-14.5); Red Blood Cell (RBC) Count 3.08 mill/uL (4.20-5.40); White Blood Cell (WBC) Count 3.9 10x3/uL (4.8-10.8)
[2023-08-26 07:01] LABS: ALT (SGPT) 12 U/L (8-55); AST (SGOT) 13 U/L (5-34); Albumin 3.5 g/dL (3.4-4.8); Alkaline Phosphatase 75 U/L (40-110); Anion Gap 16 mmol/L (10-20); BUN (Urea Nitrogen) 20 mg/dL (9.8-20.1); Bilirubin, Total 0.5 mg/dL (0.2-1.2); Calc. Creatinine Clearance 10 mL/min (70-130); Calcium 9.2 mg/dL (7.8-10.44); Carbon Dioxide 28 mmol/L (23-31); Chloride 99 mmol/L (98-107); Estimated GFR 11; Globulin 2.9 g/dL (2.4-3.5); Glucose 97 mg/dL (83-110); Potassium 3.8 mmol/L (3.5-5.1); Protein, Total 6.4 g/dL (5.8-8.1); Sodium 139 mmol/L (136-145)
[2023-08-26] MEDS: Folic Acid 1 MG TAB PO SCH (09:03)
[2023-08-26] MEDS: Amiodarone 200 MG TAB PO SCH (09:03)
[2023-08-26] MEDS: Losartan 25 MG TAB PO SCH (09:21)
[2023-08-26] MEDS: Aspirin 81 mg Enteric Coated Tablet PO SCH (09:21)
[2023-08-26] MEDS: Benzonatate 100 MG CAP PO SCH (10:12)
[2023-08-26] MEDS: Acetaminophen 325 MG TAB PO PRN (21:39)
[2023-08-27] MEDS: Senokot S 8.6-50 MG TAB PO PRN (09:19)
[2023-08-27] MEDS: Benzocaine/Menthol 1 LOZ LOZ PO PRN (09:20)
[2023-08-28 06:32] LABS: #Eosinphils 0.1 thou/uL (0.0-0.7); #Lymphocytes 0.9 thou/uL (1.20-3.40); #Monocytes 0.4 thou/uL (0.11-0.59); #Neutrophils 3.3 thou/uL (1.40-6.50); %Basophils 0.3 % (0.0-1.0); %Eosinophils 1.1 % (0.0-10.0); %Lymphocytes 18.6 % (21.0-51.0); %Monocytes 8.7 % (0.0-10.0); %Neutrophils 71.3 % (42.0-75.0); Hematocrit 29.7 % (36.0-47.0); Hemoglobin 9.4 g/dL (12.0-16.0); Mean Corpuscular HGB CONC 31.5 g/dL (32.0-36.0); Mean Corpuscular Hemoglobin 29.7 pg (27.0-31.0); Mean Corpuscular Volume 94.2 fl (78.0-98.0); Mean Platelet Volume 6.8 fL (7.4-10.4); Platelet Count 144 10x3/uL (130-400); RBC Distribution Width 18.2 % (11.5-14.5); Red Blood Cell (RBC) Count 3.15 mill/uL (4.20-5.40); White Blood Cell (WBC) Count 4.6 10x3/uL (4.8-10.8)
[2023-08-28 06:44] LABS: Anion Gap 19 mmol/L (10-20)
[2023-08-28 08:02] LABS: BUN (Urea Nitrogen) 46 mg/dL (9.8-20.1); Calc. Creatinine Clearance 5 mL/min (70-130); Calcium 9.5 mg/dL (7.8-10.44); Carbon Dioxide 25 mmol/L (23-31); Chloride 98 mmol/L (98-107); Estimated GFR 5; Glucose 84 mg/dL (83-110); Potassium 3.8 mmol/L (3.5-5.1); Sodium 138 mmol/L (136-145)
[2023-08-28] MEDS: Benzonatate 100 MG CAP ONE (11:25)
[2023-08-29] MEDS: Lidocaine 4% Patch TD SCH (07:53)
[2023-08-29] MEDS: LIDOCAINE Patch Removal TOP SCH (21:13)
[2023-08-30 05:48] VITALS: BMI 19.0
[2023-08-30 06:21] LABS: #Eosinphils 0.1 thou/uL (0.0-0.7); #Lymphocytes 0.9 thou/uL (1.20-3.40); #Monocytes 0.5 thou/uL (0.11-0.59); #Neutrophils 2.7 thou/uL (1.40-6.50); %Basophils 0.6 % (0.0-1.0); %Eosinophils 1.8 % (0.0-10.0); %Lymphocytes 21.3 % (21.0-51.0); %Monocytes 11.3 % (0.0-10.0); Hematocrit 31.2 % (36.0-47.0); Hemoglobin 9.7 g/dL (12.0-16.0); Mean Corpuscular HGB CONC 31.2 g/dL (32.0-36.0); Mean Corpuscular Hemoglobin 29.8 pg (27.0-31.0); Mean Corpuscular Volume 95.4 fl (78.0-98.0); Mean Platelet Volume 7.8 fL (7.4-10.4); Platelet Count 157 10x3/uL (130-400); RBC Distribution Width 18.1 % (11.5-14.5); Red Blood Cell (RBC) Count 3.27 mill/uL (4.20-5.40); White Blood Cell (WBC) Count 4.1 10x3/uL (4.8-10.8)
[2023-08-30 06:34] LABS: Anion Gap 17 mmol/L (10-20); BUN (Urea Nitrogen) 41 mg/dL (9.8-20.1); Calc. Creatinine Clearance 6 mL/min (70-130); Calcium 9.6 mg/dL (7.8-10.44); Carbon Dioxide 30 mmol/L (23-31); Chloride 93 mmol/L (98-107); Estimated GFR 5; Glucose 84 mg/dL (83-110); Potassium 3.6 mmol/L (3.5-5.1); Sodium 136 mmol/L (136-145)
[2023-08-30] MEDS: Lidocaine 4% Patch TD SCH (14:35)
[2023-08-30] MEDS: LIDOCAINE Patch Removal TOP SCH (21:28)
[2023-08-31] MEDS: Lidocaine 4% Patch TD SCH (09:35)
[2023-09-01 06:20] LABS: #Eosinphils 0.1 thou/uL (0.0-0.7); #Lymphocytes 0.8 thou/uL (1.20-3.40); #Monocytes 0.6 thou/uL (0.11-0.59); #Neutrophils 2.6 thou/uL (1.40-6.50); %Basophils 0.5 % (0.0-1.0); %Eosinophils 1.2 % (0.0-10.0); %Lymphocytes 20.4 % (21.0-51.0); %Monocytes 14.9 % (0.0-10.0); Hematocrit 30.9 % (36.0-47.0); Hemoglobin 9.7 g/dL (12.0-16.0); Mean Corpuscular HGB CONC 31.3 g/dL (32.0-36.0); Mean Corpuscular Volume 95.8 fl (78.0-98.0); Mean Platelet Volume 7.7 fL (7.4-10.4); Platelet Count 176 10x3/uL (130-400); RBC Distribution Width 18.3 % (11.5-14.5); Red Blood Cell (RBC) Count 3.23 mill/uL (4.20-5.40); White Blood Cell (WBC) Count 4.1 10x3/uL (4.8-10.8)
[2023-09-01 06:36] LABS: Anion Gap 15 mmol/L (10-20); BUN (Urea Nitrogen) 35 mg/dL (9.8-20.1); Calc. Creatinine Clearance 7 mL/min (70-130); Calcium 9.8 mg/dL (7.8-10.44); Carbon Dioxide 28 mmol/L (23-31); Chloride 97 mmol/L (98-107); Estimated GFR 6; Glucose 79 mg/dL (83-110); Potassium 3.6 mmol/L (3.5-5.1); Sodium 136 mmol/L (136-145)
[2023-09-01] MEDS ORDERED: Ondansetron ODT 4 MG TAB SL PRN (12:30)
[2023-09-01] MEDS: Isosorbide Dinitrate 20 MG TAB PO SCH (15:52)
[2023-09-02 08:06] VITALS: BP 137/65; TEMP 98.9
== END 2023-09-02 19:25 | disposition home or self-care (01) | DRG 947 ==
LOC: NAV ACUTE 16:54
PROVIDERS: ADMIT Family Medicine; ATTEND Family Medicine
DX: R53.81 Other malaise (principal); N18.6 End stage renal disease; I50.42 Chronic combined systolic (congestive) and diastolic (congestive) heart failure; J96.11 Chronic respiratory failure with hypoxia; B02.29 Other postherpetic nervous system involvement; I12.0 Hypertensive chronic kidney disease with stage 5 chronic kidney disease or end stage renal disease; I25.10 Atherosclerotic heart disease of native coronary artery without angina pectoris; Z99.2 Dependence on renal dialysis; D63.1 Anemia in chronic kidney disease; K21.9 Gastro-esophageal reflux disease without esophagitis; I48.91 Unspecified atrial fibrillation; K04.7 Periapical abscess without sinus; E78.5 Hyperlipidemia, unspecified; D72.819 Decreased white blood cell count, unspecified; F41.9 Anxiety disorder, unspecified; Z88.8 Allergy status to other drugs, medicaments and biological substances; Z88.5 Allergy status to narcotic agent; Z79.82 Long term (current) use of aspirin; Z79.01 Long term (current) use of anticoagulants; Z79.899 Other long term (current) drug therapy; Z90.710 Acquired absence of both cervix and uterus
CPT/HCPCS: 36415; 80048; 80053; 84100; 85025

== ENCOUNTER 2023-11-28 11:30 | Emergency (ER) | payer OTHER ==
[2023-11-28] MEDS ORDERED: Ketorolac Tromethamine 30 MG (1 mL) VIAL ONE (12:03)
== END 2023-11-28 12:40 | disposition home or self-care (01) ==
LOC: NAV ERS 11:30
DX: G44.209 Tension-type headache, unspecified, not intractable (principal); K08.89 Other specified disorders of teeth and supporting structures; I13.2 Hypertensive heart and chronic kidney disease with heart failure and with stage 5 chronic kidney disease, or end stage renal disease; N18.6 End stage renal disease; I50.9 Heart failure, unspecified; F17.220 Nicotine dependence, chewing tobacco, uncomplicated; Z99.2 Dependence on renal dialysis; Z79.899 Other long term (current) drug therapy; Z79.82 Long term (current) use of aspirin
CPT/HCPCS: 96372; 99284; J1885

== ENCOUNTER 2025-04-10 10:26 | Emergency (ER) | payer OTHER ==
[2025-04-10] MEDS ORDERED: Naproxen 500 MG TAB ONE (11:09)
== END 2025-04-10 12:15 | disposition home or self-care (01) ==
LOC: NAV ERS 10:26
DX: K08.89 Other specified disorders of teeth and supporting structures (principal); K04.7 Periapical abscess without sinus; K02.9 Dental caries, unspecified; K03.81 Cracked tooth; I13.2 Hypertensive heart and chronic kidney disease with heart failure and with stage 5 chronic kidney disease, or end stage renal disease; I50.9 Heart failure, unspecified; N18.6 End stage renal disease; I25.10 Atherosclerotic heart disease of native coronary artery without angina pectoris; I48.91 Unspecified atrial fibrillation; F17.220 Nicotine dependence, chewing tobacco, uncomplicated; Z99.2 Dependence on renal dialysis; Z79.82 Long term (current) use of aspirin; Z79.02 Long term (current) use of antithrombotics/antiplatelets; Z79.899 Other long term (current) drug therapy
CPT/HCPCS: 99282

== ENCOUNTER 2025-06-21 22:49 | Emergency (ER) | payer OTHER, MEDICARE ==
[2025-06-21 23:42] LABS: #Basophils 0.2 thou/uL (0.0-0.2); #Eosinophils 0.1 thou/uL (0.0-0.7); #Lymphocytes 1.0 thou/uL (1.20-3.40); #Monocytes 0.4 thou/uL (0.11-0.59); #Neutrophils 1.7 thou/uL (1.40-6.50); %Basophils 4.8 % (0.0-1.0); %Eosinophils 3.0 % (0.0-10.0); %Lymphocytes 29.4 % (21.0-51.0); %Monocytes 11.7 % (0.0-10.0); %Neutrophils 51.1 % (42.0-75.0); Hematocrit 28.7 % (36.0-47.0); Hemoglobin 9.3 g/dL (12.0-16.0); Mean Corpuscular Hemoglobin 28.6 pg (27.0-31.0); Mean Corpuscular Volume 87.9 fl (78.0-98.0); Platelet Count 153 10x3/uL (130-400); Red Blood Cell (RBC) Count 3.26 mill/uL (4.20-5.40); White Blood Cell (WBC) Count 3.3 10x3/uL (4.8-10.8)
[2025-06-21 23:54] LABS: Troponin I Less than 0.010 ng/mL (< 0.028)
[2025-06-21 23:55] LABS: ALT (SGPT) Less than 4 U/L (Less than 34); AST (SGOT) 25 U/L (11-34); Albumin 3.7 g/dL (3.1-4.5); Alkaline Phosphatase 83 U/L (40-110); Anion Gap 21 mmol/L (10-20); BUN (Urea Nitrogen) 25 mg/dL (9.8-20.1); Bilirubin, Total 0.5 mg/dL (0.3-1.2); Calc. Creatinine Clearance 0 mL/min (70-130); Calcium 9.4 mg/dL (7.8-10.44); Carbon Dioxide 24 mmol/L (23-31); Chloride 97 mmol/L (98-107); Globulin 4.0 g/dL (2.4-3.5); Glucose 85 mg/dL (83-110); Potassium 4.9 mmol/L (3.5-5.1); Sodium 137 mmol/L (136-145)
== END 2025-06-22 02:32 | disposition home or self-care (01) ==
LOC: NAV ERS 22:49
DX: F41.9 Anxiety disorder, unspecified (principal); R06.02 Shortness of breath; I13.2 Hypertensive heart and chronic kidney disease with heart failure and with stage 5 chronic kidney disease, or end stage renal disease; N18.6 End stage renal disease; I50.9 Heart failure, unspecified; I48.91 Unspecified atrial fibrillation; I25.10 Atherosclerotic heart disease of native coronary artery without angina pectoris; F17.220 Nicotine dependence, chewing tobacco, uncomplicated; Z99.2 Dependence on renal dialysis; Z79.82 Long term (current) use of aspirin; Z79.899 Other long term (current) drug therapy
CPT/HCPCS: 71045; 80053; 83880; 84484; 85025; 93005; 94760